=== PATIENT | female | born 1990 ===

== ENCOUNTER 2016-07-12 08:05 | Observation (INO) | payer MEDICAID, OTHER ==
[2016-07-12 08:17] VITALS: RESP 18; TEMP 98.2; O2SAT 100
[2016-07-12 08:26] VITALS: BMI 28.7
[2016-07-12 09:26] LABS: ADD MANUAL DIFF? NO
[2016-07-12 09:31] LABS: BASO # 0.03 K/mm3 (0.0-2.0); BASO % 0.2 % (0.0-3.0); EOS # 0.3 (0.0-0.7); GRAN # 8.48 (1.4-6.5); GRAN % 67.5 % (50.0-68.0); HEMATOCRIT 39.8 % (36.0-48.0); LYMPH % 23.8 % (22.0-35.0); MEAN CELL VOLUME 82.4 fL (80.0-105.0); MEAN CORPUSCULAR HEMOGLOBIN 27.1 pg (25.0-35.0); MEAN CORPUSCULAR HGB CONC 32.9 g/dl (31.0-37.0); MEAN PLATELET VOLUME 9.2 fl (7.0-11.0); MONO # 0.8 (0.1-0.6); MONO % 6.5 % (1.0-6.0); PLATELET COUNT 273 10^3/uL (120.0-450.0); RED CELL DISTRIBUTION WIDTH 15.7 % (11.5-14.5); WHITE BLOOD COUNT 12.6 10^3/ul (4.5-11.0)
[2016-07-12 09:45] LABS: ALB/GLOB RATIO 1.2 (1.1-1.8); ALKALINE PHOSPHATASE 95 U/L (38-133); ALT/SGPT 29 U/L (7-56); AST/SGOT 19 U/L (15-39); BILIRUBIN,TOTAL 0.5 mg/dL (0.2-1.3); BLOOD UREA NITROGEN 8 mg/dL (7-21); CALCIUM 8.9 mg/dL (8.4-10.5); CARBON DIOXIDE 24 mmol/L (21-33); CHLORIDE 107 mmol/L (98-107); GFR AFRICAN-AMERICAN > 60; GLUCOSE,RANDOM 81 mg/dL (70-110); MAGNESIUM 1.9 mg/dL (1.7-2.2); SODIUM 138 mmol/L (132-148); TOTAL PROTEIN 6.6 g/dL (5.8-8.3)
--- NOTE | 2016-07-12 09:50 | ED PDOC ---
Arrival/HPI - General Chief Complaint: Chest Pain Time Seen by Provider: 07/12/16 08:46 Historian: Patient - History of Present Illness Narrative History of Present Illness (Text): 07/12/16 09:45 Priscilla Ross is a 25 year old female, with a history of a-fib and asthma, presents to the emergency department complaining of intermittent chest pain since 7:45 a.m. today morning. Describes the quality as a sharp, stabbing pain to the chest which radiates to the left arm. Patient reports that she is also under emotional distress as one of her family member is getting treated in the ICU. Patient had a recent cardiac catherization done which was negative. Denies any fever, chills, headache, dizziness, shortness of breath, nausea, vomiting, diarrhea, urinary symptoms, or any other complaints at this time. Time/Duration: 1-3 hours Symptom Onset: Sudden Symptom Course: Intermittent Severity Level: Mild Activities at Onset: Light Context: Home Past Medical History - Provider Review Nursing Documentation Reviewed: Yes - Infectious Disease Hx of Infectious Diseases: None - Tetanus Immunization Tetanus Immunization: Unknown - Cardiac Hx Cardiac Disorders: Yes Hx Angina: Yes (started 3 weeks ago, went to [facility] ER was not admitted) Other/Comment: cardiac loop insertion - Pulmonary Hx Respiratory Disorders: Yes Hx Asthma: Yes - Neurological Hx Neurological Disorder: Yes Hx Syncope: Yes (notes from prior visit/triage passed out 3 weeks ago due to heart condition) - Gastrointestinal Hx Gastrointestinal Disorders: Yes Hx Gastritis: Yes - Psychiatric Hx Psychophysiologic Disorder: Yes Hx Anxiety: Yes Hx Bipolar Disorder: Yes Hx Substance Use: No - Surgical History Hx Cardiac Catheterization: Yes (08/26/13) Hx Section: Yes (2008, 2010) Hx Dilation and Curettage: Yes (2007, 2012) Hx Tubal Ligation: Yes Other/Comment: etopic pregancy 2009 - Anesthesia Hx Anesthesia: Yes Hx Anesthesia Reactions: No Hx Malignant Hyperthermia: No - Suicidal Assessment Feels Threatened In Home Enviroment: No Family/Social History - Physician Review Nursing Documentation Reviewed: Yes Family/Social History: No Known Family HX Smoking Status: Light Smoker < 10 Cigarettes Daily Hx Alcohol Use: No Hx Substance Use: No Hx Substance Use Treatment: No Allergies/Home Meds Allergies/Adverse Reactions: Allergies aspirin Allergy (Verified 07/12/16 09:40) ANAPHYLAXIS banana Allergy (Verified 10/10/15 15:02) ANAPHYLAXIS latex Allergy (Verified 10/10/15 15:02) ANAPHYLAXIS Home Medications: Home Meds Medication Instructions Recorded Confirmed Albuterol HFA [Ventolin HFA 90 2 puff IH [id number] PRN 07/12/16 07/12/16 mcg/actuation (8 g)] Review of Systems - Physician Review All systems were reviewed & negative as marked: Yes - Review of Systems Constitutional: Normal. absent: Fatigue, Fevers Respiratory: Normal. absent: SOB, Cough Cardiovascular: Chest Pain (radiating down left arm ) Gastrointestinal: Normal. absent: Abdominal Pain, Diarrhea, Nausea, Vomiting Musculoskeletal: Other (left hand ) Neurological: Normal. absent: Headache, Dizziness Psychiatric: Normal Physical Exam Vital Signs Reviewed: Yes Vital Signs Temp Pulse Resp BP Pulse Ox 07/12/16 12:08 69 18 98/66 L 100 07/12/16 11:00 125/62 07/12/16 09:26 79 18 101/61 100 07/12/16 08:16 98.2 F 71 18 94/62 L 100 Temperature: Afebrile Blood Pressure: Normal Pulse: Regular Respiratory Rate: Normal Appearance: Positive for: Well-Appearing, Non-Toxic, Comfortable Pain Distress: None Mental Status: Positive for: Alert and Oriented X 3 - Systems Exam Head: Present: Atraumatic, Normocephalic Pupils: Present: PERRL Conjunctiva: Present: Normal Respiratory/Chest: Present: Clear to Auscultation, Good Air Exchange, Tender to Palpation (to mid and left chest wall). No: Respiratory Distress, Accessory Muscle Use Cardiovascular: Present: Regular Rate and Rhythm, Normal S1, S2. No: Murmurs Upper Extremity: Present: Normal Inspection. No: Cyanosis, Edema Lower Extremity: Present: Normal Inspection. No: Edema Neurological: Present: GCS=15, CN II-XII Intact, Speech Normal, Motor Func Grossly Intact, Normal Sensory Function Skin: Present: Warm, Dry, Normal Color. No: Rashes Psychiatric: Present: Alert, Oriented x 3, Normal Insight, Normal Concentration Medical Decision Making ED Course and Treatment: 07/12/16 09:51 Impression: A 25 year old female who presents to the emergency department complaining of intermittent sharp chest pain since 7:45 today. Differential Diagnosis include but are not limited to: chest pain: secondary to emotional stress vs. musculoskeletal. Less likely cardiac Plan: -- EKG -- Labs, cardiac enzymes -- Chest X-ray -- Reassess and disposition Progress Notes: 07/12/16 09:53 EKG interpreted by me: Sinus arrhythmia @ [address] elevation. 07/12/16 11:[address] patient on EDObs for chest pain. - Lab Interpretations Lab Results: 07/12/16 09:00 07/12/16 09:00 Lab Results 07/12/16 09:00: WBC 12.6 H, RBC 4.83, Hgb 13.1, Hct 39.8, MCV 82.4, MCH 27.1, MCHC 32.9, RDW 15.7 H, Plt Count 273, MPV 9.2, Gran % 67.5, Lymph % (Auto) 23.8 , Gooding % (Auto) 6.5 H, Eos % (Auto) 2.0, Baso % (Auto) 0.2, Gran # 8.48 H, Lymph # 3.0, Gooding # 0.8 H, Eos # 0.3, Baso # 0.03, Sodium 138, Potassium 4.0, Chloride 107, Carbon Dioxide 24, Anion Gap 11, BUN 8, Creatinine 0.7, Est GFR ( Amer) > 60, Est GFR (Non-Af Amer) > 60, Random Glucose 81, Calcium 8.9, Magnesium 1.9, Total Bilirubin 0.5, AST 19, ALT 29, Alkaline Phosphatase 95, Lactate Dehydrogenase 395, Total Creatine Kinase 102, Troponin I < 0.01, Total Protein 6.6, Albumin 3.6, Globulin 3.1, Albumin/Globulin Ratio 1.2 - RAD Interpretation Radiology Orders: 07/12/16 09:15 CHEST PORTABLE [RAD] Stat - Medication Orders Current Medication Orders: Discontinued Medications Aspirin (Aspirin) 325 mg PO STAT STA Stop: 07/12/16 09:15 Last Admin: 07/12/16 09:40 Dose: Ondansetron HCl (Zofran Inj) 4 mg IVP STAT STA Stop: 07/12/16 13:40 Last Admin: 07/12/16 13:49 Dose: 4 MG IVP Administration Document 07/12/16 13:49 SE (Rec: 07/12/16 13:49 SE [id number]) Charges for Administration # of IVP Administrations 1 Oxycodone/Acetaminophen (Percocet 5/325 Mg Tab) 1 tab PO STAT STA Stop: 07/12/16 11:57 Last Admin: 07/12/16 12:05 Dose: 1 TAB ED OBSERVATION Date of observation admission: 07/12/16 Time of observation admission: 11:52 - Observation admission statement Patient is being placed in observation because:: Chest pain - Progress Note Progress Note: 07/12/16 11:56 - Aspirin was cancelled secondary to an allergy. RAFFI montgomery. Pateint was treated with Percocet. Soon after she was nauseaous so Zofran was ordered. 07/12/16 14:45 - Patient no longer has symptoms. 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 She will make sure to do that this week. She will also f/u with her PMD. - Scribe Statement The provider has reviewed the documentation as recorded by the Luna Pedraza Provider Attestation: All medical record entries made by the Luna were at my direction and personally dictated by me. I have reviewed the chart and agree that the record accurately reflects my personal performance of the history, physical exam, medical decision making, and the department course for this patient. I have also personally directed, reviewed, and agree with the discharge instructions and disposition. Disposition/Present on Arrival - Present on Arrival Any Indicators Present on Arrival: No History of DVT/PE: No History of Uncontrolled Diabetes: No Urinary Catheter: No History of Decub. Ulcer: No History Surgical Site Infection Following: None - Disposition Have Diagnosis and Disposition been Completed?: Yes Diagnosis: Chest pain Disposition: HOME/ ROUTINE Disposition Time: 15:00 Patient Plan: Discharge Condition: IMPROVED
[2016-07-12 09:54] LABS: TROPONIN I < 0.01 ng/mL
[2016-07-12] MEDS ORDERED: Oxycodone/Acetaminophen 5/325 mg Tab PO STA (11:56)
[2016-07-12 12:08] VITALS: BP 98/66; PULSE 69
--- NOTE | 2016-07-12 12:18 | RAD ---
HISTORY: chest pain COMPARISON: 10/10/2015 FINDINGS: LUNGS: No active pulmonary disease. PLEURA: No significant pleural effusion identified, no pneumothorax apparent. CARDIOVASCULAR: Normal. OSSEOUS STRUCTURES: No significant abnormalities. VISUALIZED UPPER ABDOMEN: Normal. OTHER FINDINGS: None. IMPRESSION: No active disease.
--- NOTE | 2016-07-12 16:46 | CARD ---
APPROVED REPORT EKG Measurement Heart [id number] MD [id number] <Conclusion> Sinus rhythm with marked sinus arrhythmia Otherwise normal ECG
== END 2016-07-12 14:56 | disposition home or self-care (01) ==
LOC: ED 08:05 → EROBSV 09:15
PROVIDERS: ADMIT Emergency Medicine; ATTEND Emergency Medicine
DX: R07.9 Chest pain, unspecified (principal); I48.91 Unspecified atrial fibrillation
CPT/HCPCS: 71010; 80053; 82550; 83615; 83735; 84484; 85025; 93005; 96374; 99284; G0378; J2405

== ENCOUNTER 2016-08-16 21:49 | Emergency (ER) | payer MEDICAID ==
[2016-08-16 22:04] VITALS: BMI 29.4
[2016-08-16 22:11] VITALS: TEMP 99.9
[2016-08-16] MEDS ORDERED: Sodium Chloride 0.9% 1,000 ML IV STA (22:15)
--- NOTE | 2016-08-16 22:18 | ED PDOC ---
Arrival/HPI - General Chief Complaint: Flu-like Symptoms Time Seen by Provider: 08/16/16 22:15 Historian: Patient - History of Present Illness Narrative History of Present Illness (Text): 08/16/16 22:17 This 25 yo female presents to this ED c/ sore throat, fever, myalgias, cough x 3 days. Patient noted urinary frequency, but not dysuria, urgency, hematuria, or vaginal discharge. She also denies sob, cp, rash, sick contact, or recent travel. PERC negative for PE Time/Duration: Other (3 days) Context: Home Past Medical History - Provider Review Nursing Documentation Reviewed: Yes - Infectious Disease Hx of Infectious Diseases: None - Tetanus Immunization Tetanus Immunization: Unknown - Cardiac Hx Cardiac Disorders: Yes Hx Angina: Yes (started 3 weeks ago, went to [facility] ER was not admitted) Other/Comment: cardiac loop insertion - Pulmonary Hx Respiratory Disorders: Yes Hx Asthma: Yes - Neurological Hx Neurological Disorder: Yes Hx Syncope: Yes (notes from prior visit/triage passed out 3 weeks ago due to heart condition) - Gastrointestinal Hx Gastrointestinal Disorders: Yes Hx Gastritis: Yes - Psychiatric Hx Psychophysiologic Disorder: Yes Hx Anxiety: Yes Hx Bipolar Disorder: Yes Hx Substance Use: No - Surgical History Hx Cardiac Catheterization: Yes (08/26/13) Hx Section: Yes (2008, 2010) Hx Dilation and Curettage: Yes (2007, 2012) Hx Tubal Ligation: Yes Other/Comment: etopic pregancy 2009 - Anesthesia Hx Anesthesia: Yes Hx Anesthesia Reactions: No Hx Malignant Hyperthermia: No - Suicidal Assessment Feels Threatened In Home Enviroment: No Family/Social History - Physician Review Nursing Documentation Reviewed: Yes Family/Social History: No Known Family HX Smoking Status: Heavy Smoker > 10 Cigarettes Daily Hx Alcohol Use: No Hx Substance Use: No Hx Substance Use Treatment: No Allergies/Home Meds Allergies/Adverse Reactions: Allergies aspirin Allergy (Verified 07/12/16 09:40) ANAPHYLAXIS banana Allergy (Verified 10/10/15 15:02) ANAPHYLAXIS latex Allergy (Verified 10/10/15 15:02) ANAPHYLAXIS Home Medications: Home Meds Medication Instructions Recorded Confirmed Albuterol HFA [Ventolin HFA 90 2 puff IH [id number] PRN 07/12/16 08/16/16 mcg/actuation (8 g)] Review of Systems - Review of Systems Constitutional: Fevers. absent: Fatigue, Weight Change, Night Sweats Eyes: Normal ENT: Sore Throat, Rhinorrhea Respiratory: Normal. absent: SOB, Cough, Sputum, Wheezing Cardiovascular: Normal. absent: Chest Pain, Palpitations Gastrointestinal: Normal. absent: Abdominal Pain, Nausea, Vomiting Genitourinary Female: Frequency. absent: Dysuria, Hematuria, Urine Output Changes, Vaginal Bleeding, Vaginal Discharge Musculoskeletal: Myalgias. absent: Arthralgias, Back Pain, Neck Pain Skin: Normal. absent: Rash Neurological: Normal. absent: Headache, Dizziness, Focal Weakness, Gait Changes , Speech Changes, Facial Droop Endocrine: Normal Hemo/Lymphatic: Normal Psychiatric: Normal Physical Exam Vital Signs Temp Pulse Resp BP Pulse Ox 08/17/16 00:24 74 17 116/62 97 08/16/16 22:04 99.9 F H 60 18 106/62 98 Temperature: Febrile Blood Pressure: Normal Pulse: Regular Respiratory Rate: Normal Appearance: Positive for: Well-Appearing, Non-Toxic, Comfortable Pain Distress: None Mental Status: Positive for: Alert and Oriented X 3 - Systems Exam Head: Present: Atraumatic, Normocephalic Pupils: Present: PERRL Extroacular Muscles: Present: EOMI Conjunctiva: Present: Normal Mouth: Present: Moist Mucous Membranes Pharnyx: Present: ERYTHEMA, EXUDATE. No: TONSILS ENLARGED, Peritonsilar Swelling, Uvular Deviation Neck: Present: Normal Range of Motion Respiratory/Chest: Present: Clear to Auscultation, Good Air Exchange. No: Respiratory Distress, Accessory Muscle Use, Wheezes, Rales, Retracting, Rhonchi Cardiovascular: Present: Regular Rate and Rhythm, Normal S1, S2. No: Murmurs Abdomen: Present: Normal Bowel Sounds. No: Tenderness, Distention, Peritoneal Signs, Rebound, Guarding Back: Present: Normal Inspection. No: CVA Tenderness Upper Extremity: Present: Normal Inspection, Normal ROM, Neurovascularly Intact , Capillary Refill < 2s. No: Cyanosis, Edema Lower Extremity: Present: Normal Inspection, NORMAL PULSES, Normal ROM. No: Edema, CALF TENDERNESS Neurological: Present: GCS=15, CN II-XII Intact, Speech Normal, Motor Func Grossly Intact, Normal Sensory Function Skin: Present: Warm, Dry, Normal Color. No: Rashes Psychiatric: Present: Alert, Oriented x 3, Normal Insight, Normal Concentration Medical Decision Making ED Course and Treatment: 08/16/16 23:54 Re-evaluation. Patient feels better. Discussed results and plan with patient who expresses understanding. All questions answered and there is agreement with the plan to discharge home with instructions. Patient stable for discharge. Return if symptoms persist or worsen. I reviewed [place] [facility] [employer] which did not demonstrate previous opiods use. Patient requested Phenergan with Codeine for cough. She is aware of risk of addiction, drowsiness, or allergies when using this medication. She was recommended not to drive or operate machinery when using the cough medication. Re-evaluation Time: 23:54 Reassessment Condition: Re-examined, Improved - Lab Interpretations Microbiology Results: Microbiology Results 08/16/16 22:17 Throat Group A Strep Throat Culture - Final NO BETA STREP GROUP A ISOLATED. Lab Results: Lab Results 08/16/16 22:17: Influenza Typ A,B (EIA) Negative for flu a/b, Grp A Beta Strep Ag Negative - Medication Orders Current Medication Orders: Discontinued Medications Acetaminophen (Tylenol 325mg Tab) 975 mg PO STAT STA Stop: 08/16/16 22:17 Last Admin: 08/16/16 22:43 Dose: 975 mg Amoxicillin (Amoxil 500 Mg Cap) 500 mg PO STAT STA PRN Reason: Protocol Stop: 08/16/16 23:54 Last Admin: 08/17/16 00:06 Dose: 500 mg Sodium Chloride (Sodium Chloride 0.9%) 1,000 mls @ 999 mls/hr IV .Q1H1M STA Stop: 08/16/16 23:15 Last Admin: 08/16/16 22:44 Dose: 999 mls/hr Disposition/Present on Arrival - Present on Arrival Any Indicators Present on Arrival: No History of DVT/PE: No History of Uncontrolled Diabetes: No Urinary Catheter: No History of Decub. Ulcer: No History Surgical Site Infection Following: None - Disposition Have Diagnosis and Disposition been Completed?: Yes Diagnosis: Pharyngitis Disposition: HOME/ ROUTINE Disposition Time: 23:54 Patient Plan: Discharge Condition: GOOD Discharge Instructions (ExitCare): Pharyngitis (ED) Additional Instructions: Call private doctor for follow up visit in 1-2 days. Take medication as instructed. Return to emergency if symptoms worsen. Change toothbrush in 4-5 days Prescriptions: Acetaminophen [Tylenol 325mg tab] 650 mg PO Q4H PRN #30 tab PRN Reason: Fever >100.4 F Amoxicillin [Amoxil 500 mg Cap] 500 mg PO TID #30 cap Promethazine/Codeine [Codeine/Promethazine 10 MG/5 Ml-6.25 MG/5 Ml] 5 ml PO Q4H PRN #60 ml PRN Reason: Cough Referrals: [facility], [Non-Staff] - Follow up with primary [facility] [Outside] - Follow up with primary [facility] [Outside] - Follow up with primary Forms: WORK NOTE
[2016-08-17 00:40] VITALS: BP 116/62; PULSE 74; RESP 17; O2SAT 97
== END 2016-08-17 00:40 | disposition home or self-care (01) ==
LOC: ED 21:49
DX: J02.9 Acute pharyngitis, unspecified (principal); F17.220 Nicotine dependence, chewing tobacco, uncomplicated
CPT/HCPCS: 87070; 87430; 87804; 96360; 99284; J7040

== ENCOUNTER 2016-12-10 13:46 | Emergency (ER) | payer MEDICAID ==
[2016-12-10 14:09] VITALS: BMI 26.5
[2016-12-10] MEDS ORDERED: Sodium Chloride 0.9% 1,000 ML IV STA (14:27)
[2016-12-10 14:39] LABS: URINE BILIRUBIN NEGATIVE (NEGATIVE); URINE BLOOD TRACE-INTACT (NEGATIVE); URINE GLUCOSE (UA) NEGATIVE (NEGATIVE); URINE KETONE NEGATIVE (NEGATIVE); URINE LEUKOCYTE ESTERASE SMALL Leu/uL (NEGATIVE); URINE PROTEIN NEGATIVE mg/dL (<30 mg/dL); URINE UROBILINOGEN 0.2 E.U./dL (<1 E.U./dL)
[2016-12-10 14:40] LABS: URINE APPEARANCE CLEAR (CLEAR); URINE COLOR YELLOW (YELLOW)
[2016-12-10 14:47] LABS: URINE RBC 0 - 2 /hpf (0-2)
[2016-12-10] MEDS ORDERED: Morphine 4 mg/ml ISec IVP STA (15:10)
[2016-12-10 15:13] LABS: ALB/GLOB RATIO 1.3 (1.1-1.8); ALKALINE PHOSPHATASE 101 U/L (38-126); ALT/SGPT 39 U/L (7-56); AST/SGOT 25 U/L (14-36); BILIRUBIN,TOTAL 0.4 mg/dL (0.2-1.3); BLOOD UREA NITROGEN 10 mg/dL (7-21); CALCIUM 9.7 mg/dL (8.4-10.5); CARBON DIOXIDE 29 mmol/L (21-33); CHLORIDE 104 mmol/L (98-107); GFR AFRICAN-AMERICAN > 60; GLUCOSE,RANDOM 75 mg/dL (70-110); LIPASE 52 U/L (23-300); POTASSIUM 4.9 mmol/L (3.6-5.0); SODIUM 143 mmol/L (132-148); TOTAL PROTEIN 7.1 g/dL (5.8-8.3)
[2016-12-10 15:14] LABS: BASO # 0.04 K/mm3 (0.0-2.0); BASO % 0.4 % (0.0-3.0); EOS # 0.2 (0.0-0.7); GRAN # 7.02 (1.4-6.5); GRAN % 63.4 % (50.0-68.0); HEMATOCRIT 41.5 % (36.0-48.0); LYMPH # 3.1 (1.2-3.4); LYMPH % 27.7 % (22.0-35.0); MEAN CELL VOLUME 84.9 fl (80.0-105.0); MEAN CORPUSCULAR HEMOGLOBIN 28.2 pg (25.0-35.0); MEAN CORPUSCULAR HGB CONC 33.3 g/dl (31.0-37.0); MEAN PLATELET VOLUME 9.4 fl (7.0-11.0); MONO # 0.7 (0.1-0.6); MONO % 6.5 % (1.0-6.0); RED CELL DISTRIBUTION WIDTH 15.9 % (11.5-14.5); WHITE BLOOD COUNT 11.1 10^3/ul (4.5-11.0)
[2016-12-10] MEDS ORDERED: Iohexol 350 MG/100 ML VIAL ONE (15:51)
--- NOTE | 2016-12-10 16:06 | US ---
HISTORY: llq pain COMPARISON: Transvaginal pelvic ultrasound performed 07/28/13 TECHNIQUE: Transvaginal pelvic ultrasound FINDINGS: UTERUS: Measures 7.3 x 4.0 x 4.8 cm. ENDOMETRIUM: Measures 7 mm in diameter. CERVIX: Cervix length measures approximately 3.6 cm. Nabothian cyst. RIGHT OVARY: Measures 2.8 x 1.9 x 2.4 cm. Blood flow is demonstrated. 1.4 cm follicle/cyst. LEFT OVARY: Measures 2.8 x 1.9 x 2.4 cm. Blood flow is demonstrated. 1.2 cm follicle/cyst. FREE FLUID: No significant free fluid noted. OTHER FINDINGS: None. IMPRESSION: Bilateral follicles/cysts.
[2016-12-10 16:17] VITALS: RESP 17
--- NOTE | 2016-12-10 16:36 | CT ---
PROCEDURE: CT Abdomen and Pelvis with contrast HISTORY: abd pain COMPARISON: CT abdomen and pelvis with IV contrast performed 07/28/13 TECHNIQUE: Contrast dose: 100 mL Omnipaque 350 Radiation dose: Total exam DLP = 318.05 MGy-cm. This CT exam was performed using one or more of the following dose reduction techniques: Automated exposure control, adjustment of the mA and/or kV according to patient size, and/or use of iterative reconstruction technique. FINDINGS: LOWER THORAX: No visible consolidation, pleural effusion, or pneumothorax. LIVER: Unremarkable. GALLBLADDER AND BILE DUCTS: Unremarkable. PANCREAS: Unremarkable. SPLEEN: Meter probable splenule. Otherwise unremarkable. ADRENALS: Unremarkable. KIDNEYS AND URETERS: The kidneys enhance symmetrically. No hydronephrosis or obstructing calculus identified. VASCULATURE: No aortic aneurysm. BOWEL: Stomach is nondistended. Lack of oral contrast limits evaluation for bowel pathology. Bowel loops appear within normal limits of caliber without evidence of obstruction. APPENDIX: The appendix appears within normal limits of caliber. No secondary signs of acute appendicitis. PERITONEUM: No significant free fluid. No definite free air. LYMPH NODES: No bulky adenopathy. BLADDER: Unremarkable. REPRODUCTIVE: The uterus is present. 9 mm right adnexal low-density lesion possibly ovarian cyst. BONES: No acute osseous abnormality is detected. . OTHER FINDINGS: None. IMPRESSION: No acute pathology identified. Findings as above.
[2016-12-10] MEDS ORDERED: Morphine 2 mg/ml ISec IVP STA (16:42)
[2016-12-10] MEDS ORDERED: cefTRIAXone (Rocephin) 250 mg Inj IM STA (17:17)
--- NOTE | 2016-12-10 17:24 | ED PDOC ---
Arrival/HPI - General Historian: Patient - History of Present Illness Time/Duration: 1 week Symptom Onset: Gradual Symptom Course: Worsening Quality: Aching, Pressure Severity Level: 8 - General Chief Complaint: Abdominal Pain Time Seen by Provider: 12/10/16 14:14 - History of Present Illness Narrative History of Present Illness (Text): 12/10/16 17:21 26-year-old female presents today with a one-week history of left lower quadrant abdominal pain and suprapubic pain that has been worsening. Patient with a history of unprotected sex with 2 partners. Complaining of severe abdominal pain worse with movement. Patient also states that she has been doing heavy lifting and moving. She denies chest pain or shortness of breath. Denies dizziness or weakness. Complaining of occasional urinary frequency. Patient states she did have vaginal discharge last week before her period. Patient denies at present time. Denies fevers or chills. No other complaints ( Azoia,Isa T) Past Medical History - Provider Review Nursing Documentation Reviewed: Yes - Travel History Have you recently traveled outside [place] w/in the past 3 mons?: No - Infectious Disease Hx of Infectious Diseases: None - Tetanus Immunization Tetanus Immunization: Unknown - Cardiac Hx Cardiac Disorders: Yes Hx Angina: Yes Hx Atrial Fibrillation: Yes (h/o ablation) Hx Hypotension: Yes Other/Comment: cardiac loop insertion - Pulmonary Hx Respiratory Disorders: Yes Hx Asthma: Yes - Neurological Hx Neurological Disorder: Yes Hx Syncope: Yes - Gastrointestinal Hx Gastrointestinal Disorders: Yes Hx Gastritis: Yes - Genitourinary/Gynecological Other/Comment: Ovarian Cyst - Psychiatric Hx Psychophysiologic Disorder: Yes Hx Anxiety: Yes Hx Bipolar Disorder: Yes Hx Substance Use: No - Surgical History Hx Cardiac Catheterization: Yes (08/26/13) Hx Section: Yes (2008, 2010) Hx Dilation and Curettage: Yes (2007, 2012) Hx Tubal Ligation: Yes Other/Comment: ectopic pregancy 2009 - Anesthesia Hx Anesthesia: Yes Hx Anesthesia Reactions: No Hx Malignant Hyperthermia: No - Suicidal Assessment Feels Threatened In Home Enviroment: No Family/Social History - Physician Review Nursing Documentation Reviewed: Yes Family/Social History: Unknown Family HX Smoking Status: Light Smoker < 10 Cigarettes Daily Hx Alcohol Use: Yes Frequency of alcohol use: Socially Hx Substance Use: No Hx Substance Use Treatment: No Allergies/Home Meds Allergies/Adverse Reactions: Allergies aspirin Allergy (Verified 07/12/16 09:40) ANAPHYLAXIS banana Allergy (Verified 10/10/15 15:02) ANAPHYLAXIS latex Allergy (Verified 10/10/15 15:02) ANAPHYLAXIS Home Medications: Home Meds Medication Instructions Recorded Confirmed Albuterol HFA [Ventolin HFA 90 2 puff IH [id number] PRN 07/12/16 12/10/16 mcg/actuation (8 g)] Midodrine [Proamatine] 1 tab PO TID 12/10/16 12/10/16 Review of Systems - Review of Systems Constitutional: absent: Fatigue, Fevers Respiratory: absent: SOB, Cough Cardiovascular: absent: Chest Pain, Palpitations Gastrointestinal: Abdominal Pain. absent: Constipation, Diarrhea, Nausea, Vomiting Genitourinary Female: Dysuria, Vaginal Discharge. absent: Frequency, Hematuria , Vaginal Bleeding Musculoskeletal: Back Pain. absent: Arthralgias, Neck Pain Skin: absent: Rash, Pruritis Neurological: absent: Headache, Dizziness Psychiatric: absent: Anxiety, Depression Physical Exam Vital Signs Reviewed: Yes Temperature: Afebrile Blood Pressure: Normal Pulse: Regular Respiratory Rate: Normal Appearance: Positive for: Well-Appearing, Non-Toxic, Comfortable Pain Distress: None Mental Status: Positive for: Alert and Oriented X 3 - Systems Exam Head: Present: Atraumatic Mouth: Present: Moist Mucous Membranes Neck: Present: Normal Range of Motion Respiratory/Chest: Present: Clear to Auscultation, Good Air Exchange. No: Respiratory Distress, Accessory Muscle Use Cardiovascular: Present: Regular Rate and Rhythm, Normal S1, S2. No: Murmurs Abdomen: Present: Tenderness (+ LLQ and suprapubic tenderness), Normal Bowel Sounds. No: Distention, Peritoneal Signs Genitourinary/Pelvic Exam: Present: Normal External Genitalia, Vaginal Discharge , Cervical Motion Tendernes, Other (chaparoned by maurilio MCCLENDON). No: Vaginal Bleeding, Vaginal Lesions, Adenexal Tenderness, Adenexal Mass, Cervical os Closed, Odor Back: Present: Normal Inspection. No: CVA Tenderness, Midline Tenderness, Paraspinal Tenderness Upper Extremity: Present: Normal Inspection Lower Extremity: Present: Normal Inspection Neurological: Present: GCS=15, Speech Normal Skin: Present: Warm, Dry, Normal Color. No: Rashes Psychiatric: Present: Alert, Oriented x 3 Medical Decision Making ED Course and Treatment: 12/10/16 17:25 Patient is nontoxic well appearing with stable vital signs presenting with 1 week history of worsening left lower quadrant abdominal pain CBC WBC 11.1 CMP within normal limits Lipase within normal limits Urinalysis trace leukocytes Ultrasound: FINDINGS: UTERUS: Measures 7.3 x 4.0 x 4.8 cm. ENDOMETRIUM: Measures 7 mm in diameter. CERVIX: Cervix length measures approximately 3.6 cm. Nabothian cyst. RIGHT OVARY: Measures 2.8 x 1.9 x 2.4 cm. Blood flow is demonstrated. 1.4 cm follicle/cyst. LEFT OVARY: Measures 2.8 x 1.9 x 2.4 cm. Blood flow is demonstrated. 1.2 cm follicle/cyst. FREE FLUID: No significant free fluid noted. OTHER FINDINGS: None. IMPRESSION: Bilateral follicles/cysts. CAT scan: FINDINGS: LOWER THORAX: No visible consolidation, pleural effusion, or pneumothorax. LIVER: Unremarkable. GALLBLADDER AND BILE DUCTS: Unremarkable. PANCREAS: Unremarkable. SPLEEN: Meter probable splenule. Otherwise unremarkable. ADRENALS: Unremarkable. KIDNEYS AND URETERS: The kidneys enhance symmetrically. No hydronephrosis or obstructing calculus identified. VASCULATURE: No aortic aneurysm. BOWEL: Stomach is nondistended. Lack of oral contrast limits evaluation for bowel pathology. Bowel loops appear within normal limits of caliber without evidence of obstruction. APPENDIX: The appendix appears within normal limits of caliber. No secondary signs of acute appendicitis. PERITONEUM: No significant free fluid. No definite free air. LYMPH NODES: No bulky adenopathy. BLADDER: Unremarkable. REPRODUCTIVE: The uterus is present. 9 mm right adnexal low-density lesion possibly ovarian cyst. BONES: No acute osseous abnormality is detected. . OTHER FINDINGS: None. IMPRESSION: No acute pathology identified. Findings as above. Patient reassessment: pt feeling better after morphine; GC/chylamdyia cultures pending. will treat patients vaginal discharge with ROcephin and zithromax. pt was advised to f/u with TRANSMISSION SYSTEMS OPERATOR. Discussed all results with patient in depth Patient verbalizes understanding of discharge instructions and need for immediate followup. Impression: Abdominal pain, vaginal discharge. Tylenol every 4 hours as needed for pain Doxycycline 1 tablet twice daily 14 days Follow up with primary care physician within the next 2 days Follow up with the TRANSMISSION SYSTEMS OPERATOR within the next 2 days. Return immediately if symptoms worsen persist or if new symptoms develop: High fevers, increasing pain, vomiting, diarrhea or any other concerning symptoms develop (Isa Layton) I was available for consultation during PA evaluation. The chart was reviewed by me, and I agree with disposition. The documented history was done by the physician membership solicitor. The documented physical exam was done by the physician membership solicitor. The documented procedures were done by the physician membership solicitor. (Franko Sandoval) - Lab Interpretations Lab Results: 12/10/16 14:50 12/10/16 14:50 Lab Results 12/10/16 14:50: WBC 11.1 H, RBC 4.89, Hgb 13.8, Hct 41.5, MCV 84.9, MCH 28.2, MCHC 33.3, RDW 15.9 H, Plt Count 312, MPV 9.4, Gran % 63.4, Lymph % (Auto) 27.7 , [place] % (Auto) 6.5 H, Eos % (Auto) 2.0, Baso % (Auto) 0.4, Gran # 7.02 H, Lymph # 3.1, [place] # 0.7 H, Eos # 0.2, Baso # 0.04 12/10/16 14:50: Sodium 143, Potassium 4.9, Chloride 104, Carbon Dioxide 29, Anion Gap 15, BUN 10, Creatinine 0.7, Est GFR ( Amer) > 60, Est GFR (Non- Af Amer) > 60, Random Glucose 75, Calcium 9.7, Total Bilirubin 0.4, AST 25, ALT 39, Alkaline Phosphatase 101, Total Protein 7.1, Albumin 4.1, Globulin 3.1, Albumin/Globulin Ratio 1.3, Lipase 52 12/10/16 14:35: Urine Color Yellow, Urine Appearance Clear, Urine pH 7.0, Ur Specific Wells 1.010, Urine Protein Negative, Urine Glucose (UA) Negative, Urine Ketones Negative, Urine Blood Trace-intact H, Urine Nitrate Negative, Urine Bilirubin Negative, Urine Urobilinogen 0.2, Ur Leukocyte Esterase Small H , Urine RBC 0 - 2, Urine WBC 2 - 5, Ur Epithelial Cells 3 - 4, Urine HCG, Qual Negative - RAD Interpretation Radiology Orders: 12/10/16 15:02 ABD & PELVIS IV CONTRAST ONLY [CT] Stat TRANSVAGINAL [US] Stat - Medication Orders Current Medication Orders: Discontinued Medications Acetaminophen (Tylenol 325mg Tab) 650 mg PO STAT STA Stop: 12/10/16 15:24 Last Admin: 12/10/16 16:14 Dose: Not Given Non-Admin Reason: Patient Refused Azithromycin (Zithromax) 1,000 mg PO STAT STA PRN Reason: Protocol Stop: 12/10/16 17:18 Last Admin: 12/10/16 17:43 Dose: 1,000 mg Ceftriaxone Sodium (Rocephin) 250 mg IM STAT STA PRN Reason: Protocol Stop: 12/10/16 17:18 Last Admin: 12/10/16 17:43 Dose: 250 mg Sodium Chloride (Sodium Chloride 0.9%) 1,000 mls @ 999 mls/hr IV .Q1H1M STA Stop: 12/10/16 15:27 Last Admin: 12/10/16 14:58 Dose: 999 mls/hr Iohexol (Omnipaque 350 100 Ml) Confirm Administered Dose 350 mg .ROUTE .STK-MED ONE Stop: 12/10/16 15:52 Morphine Sulfate (Morphine) 2 mg IVP STAT STA Stop: 12/10/16 16:43 Last Admin: 12/10/16 16:54 Dose: 2 mg Disposition/Present on Arrival - Present on Arrival Any Indicators Present on Arrival: No History of DVT/PE: No History of Uncontrolled Diabetes: No Urinary Catheter: No History of Decub. Ulcer: No History Surgical Site Infection Following: None - Disposition Have Diagnosis and Disposition been Completed?: Yes Disposition Time: 17:38 Patient Plan: Discharge - Disposition Diagnosis: Abdominal pain, Vaginal discharge Disposition: HOME/ ROUTINE Condition: GOOD Discharge Instructions (ExitCare): Pelvic Inflammatory Disease (ED), Acute Abdominal Pain (ED) Additional Instructions: Tylenol every 4 hours as needed for pain Doxycycline 1 tablet twice daily 14 days Follow up with primary care physician within the next 2 days Follow up with the TRANSMISSION SYSTEMS OPERATOR within the next 2 days. Return immediately if symptoms worsen persist or if new symptoms develop: High fevers, increasing pain, vomiting, diarrhea or any other concerning symptoms develop Prescriptions: Doxycycline Hyclate 100 mg PO BID #28 capsule Referrals: Katheryn Bajwa MD [Staff Provider] - Follow up with primary [facility] [Outside] - [facility] with [facility] [Outside] - Follow up with primary Yumiko Corona MD [Staff Provider] - Follow up with primary Forms: [employer] (Telugu), WORK NOTE
[2016-12-10 18:04] VITALS: BP 98/76; PULSE 73; TEMP 98.2; O2SAT 95
== END 2016-12-10 18:03 | disposition home or self-care (01) ==
LOC: ED 13:46
DX: N89.8 Other specified noninflammatory disorders of vagina (principal); R10.32 Left lower quadrant pain
CPT/HCPCS: 74177; 76830; 80053; 81001; 83690; 84703; 85025; 87086; 87491; 87591; 96361; 96372; 96374; 99284; J0696; J2270; J7040; Q9967

== ENCOUNTER 2017-01-20 01:43 | Emergency (ER) | payer MEDICAID ==
[2017-01-20 02:05] VITALS: BMI 26.9
[2017-01-20] MEDS ORDERED: Sodium Chloride 0.9% 1,000 ML IV STA (02:12)
[2017-01-20 02:15] VITALS: RESP 16; TEMP 98.4
--- NOTE | 2017-01-20 02:20 | ED PDOC ---
Arrival/HPI - General Chief Complaint: Abdominal Pain Time Seen by Provider: 01/20/17 02:06 Historian: Patient - History of Present Illness Narrative History of Present Illness (Text): 01/20/17 02:16 A 26 year old female, whose past medical history includes asthma, presents to the emergency department complaining of epigastric abdominal pain. Patient reports pain developed about twelve hours ago, after taking 4 tablets of Flagyl medication. Patient describes pain as a burning sensation. Patient was prescribed Flagyl medication ten days ago but notes she took them yesterday. Notes she drank beer two hours ago. Reports nausea and vomiting but denies any vaginal bleeding, discharge or any other complaints at this time. PMD: Dr. Hewitt Symptom Onset: Sudden Symptom Course: Unchanged Activities at Onset: Rest Context: Home Past Medical History - Provider Review Nursing Documentation Reviewed: Yes - Infectious Disease Hx of Infectious Diseases: None - Tetanus Immunization Tetanus Immunization: Unknown - Cardiac Hx Atrial Fibrillation: Yes (ablation) - Pulmonary Hx Respiratory Disorders: Yes Hx Asthma: Yes - Neurological Hx Neurological Disorder: Yes Hx Syncope: Yes - HEENT Hx HEENT Disorder: No - Renal Hx Renal Disorder: No - Endocrine/Metabolic Hx Endocrine Disorders: No - Hematological/Oncological Hx Blood Disorders: No - Integumentary Hx Dermatological Disorder: No - Musculoskeletal/Rheumatological Hx Musculoskeletal Disorders: No - Gastrointestinal Hx Gastrointestinal Disorders: Yes Hx Gastritis: Yes - Genitourinary/Gynecological Hx Genitourinary Disorders: No Other/Comment: Ovarian Cyst - Psychiatric Hx Psychophysiologic Disorder: Yes Hx Anxiety: Yes Hx Bipolar Disorder: Yes Hx Substance Use: No - Surgical History Hx Section: Yes (x3) Hx Tubal Ligation: Yes Other/Comment: etopic pregancy 2010 - Anesthesia Hx Anesthesia: Yes Hx Anesthesia Reactions: No Hx Malignant Hyperthermia: No - Suicidal Assessment Feels Threatened In Home Enviroment: No Family/Social History - Physician Review Nursing Documentation Reviewed: Yes Family/Social History: Other (non contributory) Smoking Status: Light Smoker < 10 Cigarettes Daily Hx Alcohol Use: No Hx Substance Use: No Hx Substance Use Treatment: No Allergies/Home Meds Allergies/Adverse Reactions: Allergies aspirin Allergy (Verified 01/20/17 02:05) ANAPHYLAXIS banana Allergy (Verified 01/20/17 02:05) ANAPHYLAXIS latex Allergy (Verified 01/20/17 02:05) ANAPHYLAXIS Home Medications: Home Meds Medication Instructions Recorded Confirmed Midodrine [Proamatine] 1 tab PO TID 12/10/16 01/20/17 Fludrocortisone [Florinef] 0.1 mg PO DAILY 01/20/17 01/20/17 Lurasidone HCl [Latuda] 20 mg PO DAILY 01/20/17 01/20/17 Sertraline [Zoloft] 12.5 mg PO DAILY 01/20/17 01/20/17 Review of Systems - Physician Review All systems were reviewed & negative as marked: Yes - Review of Systems Gastrointestinal: Abdominal Pain (epigastric), Nausea, Vomiting Genitourinary Female: absent: Vaginal Bleeding, Vaginal Discharge Physical Exam Vital Signs Reviewed: Yes Vital Signs Temp Pulse Resp BP Pulse Ox 01/20/17 02:14 98.4 F 96 H 16 110/63 100 Appearance: Positive for: Well-Appearing, Non-Toxic, Comfortable Pain Distress: None Mental Status: Positive for: Alert and Oriented X 3 - Systems Exam Head: Present: Atraumatic, Normocephalic Pupils: Present: PERRL Extroacular Muscles: Present: EOMI Conjunctiva: Present: Normal Mouth: Present: Moist Mucous Membranes Neck: Present: Normal Range of Motion Respiratory/Chest: Present: Clear to Auscultation, Good Air Exchange. No: Respiratory Distress, Accessory Muscle Use Cardiovascular: Present: Regular Rate and Rhythm, Normal S1, S2. No: Murmurs Abdomen: Present: Tenderness (epigastric), Normal Bowel Sounds. No: Distention , Peritoneal Signs Back: Present: Normal Inspection Upper Extremity: Present: Normal Inspection. No: Cyanosis, Edema Lower Extremity: Present: Normal Inspection. No: Edema Neurological: Present: GCS=15, CN II-XII Intact, Speech Normal Skin: Present: Warm, Dry, Normal Color. No: Rashes Psychiatric: Present: Alert, Oriented x 3, Normal Insight, Normal Concentration Medical Decision Making ED Course and Treatment: 01/20/17 05:02 pt sleeping. upon waking reports pain and nausea improved. I disc results and plan for rx. Follow up and return precautions advised. - Lab Interpretations Lab Results: 01/20/17 02:45 01/20/17 02:45 Lab Results 01/20/17 02:45: Sodium 141, Potassium 4.0, Chloride 107, Carbon Dioxide 23, Anion Gap 15, BUN 9, Creatinine 0.6 L, Est GFR ( Amer) > 60, Est GFR (Non -Af Amer) > 60, Random Glucose 81, Calcium 9.2, Total Bilirubin 0.5, AST 23, ALT 35, Alkaline Phosphatase 86, Total Protein 6.6, Albumin 3.9, Globulin 2.7, Albumin/Globulin Ratio 1.4, Lipase 48 01/20/17 02:45: WBC 12.6 H, RBC 4.60, Hgb 13.0, Hct 38.4, MCV 83.5, MCH 28.3, MCHC 33.9, RDW 14.2, Plt Count 265, MPV 9.2, Gran % 61.6, Lymph % (Auto) 28.1, [place] % (Auto) 8.6 H, Eos % (Auto) 1.5, Baso % (Auto) 0.2, Gran # 7.76 H, Lymph # 3.5 H, [place] # 1.1 H, Eos # 0.2, Baso # 0.02 I have reviewed the lab results: Yes - Medication Orders Current Medication Orders: Discontinued Medications Sodium Chloride (Sodium Chloride 0.9%) 1,000 mls @ 999 mls/hr IV .Q1H1M STA Stop: 01/20/17 03:12 Last Admin: 01/20/17 02:54 Dose: 999 mls/hr eMAR Start Stop Document 01/20/17 02:54 SC (Rec: 01/20/17 02:54 SC [id number]) Intravenous Solution Start Date 01/20/17 Start Time 02:54 End Date 01/20/17 End time 03:55 Total Infusion Time 61 Ondansetron HCl (Zofran Inj) 4 mg IVP ONCE ONE Stop: 01/20/17 02:13 Last Admin: 01/20/17 02:54 Dose: 4 mg IVP Administration Document 01/20/17 02:54 SC (Rec: 01/20/17 02:54 SC [id number]) Charges for Administration # of IVP Administrations 1 - Scribe Statement The provider has reviewed the documentation as recorded by the Galinaibe Jacky Valencia Provider Scribe Attestation: All medical record entries made by the Scribe were at my direction and personally dictated by me. I have reviewed the chart and agree that the record accurately reflects my personal performance of the history, physical exam, medical decision making, and the department course for this patient. I have also personally directed, reviewed, and agree with the discharge instructions and disposition. Disposition/Present on Arrival - Present on Arrival Any Indicators Present on Arrival: No History of DVT/PE: No History of Uncontrolled Diabetes: No Urinary Catheter: No History of Decub. Ulcer: No History Surgical Site Infection Following: None - Disposition Have Diagnosis and Disposition been Completed?: Yes Diagnosis: Medication side effect Disposition: HOME/ ROUTINE Disposition Time: 05:02 Condition: IMPROVED Referrals: Magdalena Hewitt MD [Primary Care Provider] - Follow up with primary Forms: [employer] (Divehi)
[2017-01-20 03:03] LABS: BASO # 0.02 K/mm3 (0.0-2.0); BASO % 0.2 % (0.0-3.0); EOS # 0.2 (0.0-0.7); EOS % 1.5 % (1.5-5.0); GRAN # 7.76 (1.4-6.5); GRAN % 61.6 % (50.0-68.0); HEMATOCRIT 38.4 % (36.0-48.0); LYMPH # 3.5 (1.2-3.4); LYMPH % 28.1 % (22.0-35.0); MEAN CELL VOLUME 83.5 fl (80.0-105.0); MEAN CORPUSCULAR HEMOGLOBIN 28.3 pg (25.0-35.0); MEAN CORPUSCULAR HGB CONC 33.9 g/dl (31.0-37.0); MEAN PLATELET VOLUME 9.2 fl (7.0-11.0); MONO # 1.1 (0.1-0.6); MONO % 8.6 % (1.0-6.0); RED CELL DISTRIBUTION WIDTH 14.2 % (11.5-14.5); WHITE BLOOD COUNT 12.6 10^3/ul (4.5-11.0)
[2017-01-20 03:08] LABS: ALB/GLOB RATIO 1.4 (1.1-1.8); ALKALINE PHOSPHATASE 86 U/L (38-126); ALT/SGPT 35 U/L (7-56); AST/SGOT 23 U/L (14-36); BILIRUBIN,TOTAL 0.5 mg/dL (0.2-1.3); BLOOD UREA NITROGEN 9 mg/dL (7-21); CALCIUM 9.2 mg/dL (8.4-10.5); CARBON DIOXIDE 23 mmol/L (21-33); CHLORIDE 107 mmol/L (98-107); GFR AFRICAN-AMERICAN > 60; GLUCOSE,RANDOM 81 mg/dL (70-110); LIPASE 48 U/L (23-300); SODIUM 141 mmol/L (132-148); TOTAL PROTEIN 6.6 g/dL (5.8-8.3)
[2017-01-20 05:17] VITALS: BP 122/76; PULSE 72; O2SAT 99
== END 2017-01-20 05:17 | disposition home or self-care (01) ==
LOC: ED 01:43
DX: R10.13 Epigastric pain (principal); T37.3X5A Adverse effect of other antiprotozoal drugs, initial encounter; Y92.009 Unspecified place in unspecified non-institutional (private) residence as the place of occurrence of the external cause; F17.210 Nicotine dependence, cigarettes, uncomplicated; Z98.51 Tubal ligation status; I48.91 Unspecified atrial fibrillation
CPT/HCPCS: 80053; 83690; 85025; 96361; 96374; 99283; J2405; J7040

== ENCOUNTER 2017-02-24 22:23 | Emergency (ER) | payer MEDICAID ==
[2017-02-24 22:24] VITALS: BMI 26.9
--- NOTE | 2017-02-24 22:37 | ED PDOC ---
Arrival/HPI - General Time Seen by Provider: 02/24/17 22:28 Historian: Patient - History of Present Illness Narrative History of Present Illness (Text): 02/24/17 22:37 Priscilla Ross is a 26 year old female, whose past medical history includes atrial fibrillation s/p ablation, bipolar disorder, bipolar disorder, anxiety, and depression.,, who presents to the Emergency department for alcohol intoxication tonight. Patient admits to drinking vodka tonight and denies any substance abuse. Patient denies any chest pain, shortness of breath, vomiting, diarrhea, headache, dizziness, suicidal ideation, homicidal ideation, or any other complaints. Time/Duration: Other (tonight) Symptom Onset: Gradual Symptom Course: Unchanged Activities at Onset: Light Past Medical History - Provider Review Nursing Documentation Reviewed: Yes - Infectious Disease Hx of Infectious Diseases: None - Tetanus Immunization Tetanus Immunization: Unknown - Cardiac Hx Atrial Fibrillation: Yes (ablation) - Pulmonary Hx Asthma: Yes - Neurological Hx Neurological Disorder: Yes Hx Syncope: Yes - HEENT Hx HEENT Disorder: No - Renal Hx Renal Disorder: No - Endocrine/Metabolic Hx Endocrine Disorders: No - Hematological/Oncological Hx Blood Disorders: No - Integumentary Hx Dermatological Disorder: No - Musculoskeletal/Rheumatological Hx Musculoskeletal Disorders: No - Gastrointestinal Hx Gastritis: Yes - Genitourinary/Gynecological Hx Genitourinary Disorders: No Other/Comment: Ovarian Cyst - Psychiatric Hx Anxiety: Yes Hx Bipolar Disorder: Yes Hx Substance Use: No - Surgical History Hx Section: Yes (x3) Hx Tubal Ligation: Yes Other/Comment: etopic pregancy 2010 - Anesthesia Hx Anesthesia: Yes Hx Anesthesia Reactions: No Hx Malignant Hyperthermia: No - Suicidal Assessment Feels Threatened In Home Enviroment: No Family/Social History - Physician Review Nursing Documentation Reviewed: Yes Family/Social History: Unknown Family HX Smoking Status: Light Smoker < 10 Cigarettes Daily Hx Alcohol Use: Yes (occasional) Hx Substance Use: No Hx Substance Use Treatment: No Allergies/Home Meds Allergies/Adverse Reactions: Allergies aspirin Allergy (Verified 02/24/17 22:42) ANAPHYLAXIS banana Allergy (Verified 02/24/17 22:42) ANAPHYLAXIS latex Allergy (Verified 02/24/17 22:42) ANAPHYLAXIS surgical tape Allergy (Uncoded 02/24/17 22:42) ANAPHYLAXIS Home Medications: Home Meds Medication Instructions Recorded Confirmed Midodrine [Proamatine] 1 tab PO TID 12/10/16 02/15/17 Fludrocortisone [Florinef] 0.1 mg PO DAILY 01/20/17 02/15/17 Lurasidone HCl [Latuda] 20 mg PO DAILY 01/20/17 02/15/17 Sertraline [Zoloft] 12.5 mg PO DAILY 01/20/17 02/15/17 Review of Systems - Physician Review All systems were reviewed & negative as marked: Yes - Review of Systems Constitutional: Normal. absent: Fevers Eyes: Normal ENT: Normal Respiratory: Normal. absent: SOB, Cough Cardiovascular: Normal. absent: Chest Pain Gastrointestinal: Nausea. absent: Abdominal Pain Musculoskeletal: absent: Back Pain, Neck Pain Skin: Normal. absent: Rash Neurological: Normal. absent: Headache, Dizziness Endocrine: Normal Hemo/Lymphatic: Normal Psychiatric: Normal. absent: Suicidal Ideation Physical Exam Vital Signs Reviewed: Yes Vital Signs Temp Pulse Resp BP Pulse Ox 02/25/17 06:00 98 F 74 18 124/73 97 02/24/17 22:37 97.9 F 88 17 117/78 98 Temperature: Afebrile Blood Pressure: Normal Pulse: Regular Respiratory Rate: Normal Appearance: Positive for: Well-Appearing, Non-Toxic, Comfortable Pain Distress: None Mental Status: Positive for: Alert and Oriented X 3, other (inebriated) - Systems Exam Head: Present: Atraumatic, Normocephalic Pupils: Present: PERRL Extroacular Muscles: Present: EOMI Conjunctiva: Present: Normal Ears: Present: Normal Mouth: Present: Moist Mucous Membranes Neck: Present: Normal Range of Motion Respiratory/Chest: Present: Clear to Auscultation, Good Air Exchange. No: Respiratory Distress, Accessory Muscle Use Cardiovascular: Present: Regular Rate and Rhythm, Normal S1, S2. No: Murmurs Abdomen: Present: Normal Bowel Sounds. No: Tenderness, Distention, Peritoneal Signs Upper Extremity: Present: Normal Inspection. No: Cyanosis, Edema Lower Extremity: Present: Normal Inspection. No: Edema Neurological: Present: GCS=15, CN II-XII Intact Skin: Present: Warm, Dry, Normal Color. No: Rashes Psychiatric: Present: Normal Insight, Normal Concentration, Intoxicated Medical Decision Making ED Course and Treatment: 02/24/17 22:37 Impression: 26 year old female presents to the Emergency department for alcohol intoxication. Differential Diagnosis included but are not limited to: alcohol intoxication Plan: -- Alcohol level -- IV fluids -- Zofran -- Reassess and disposition Prior Visits: Notes and results from previous visits were reviewed. On 02/14/2017, pt was seen in the Emergency department for abdominal pain, nausea, vomiting, fever, and headache. Pt was admitted to the hospital for further evaluation. Progress Notes: 02/25/17 05:59 Pt awake, alert, ambulating with steady gait.Slept in Emergency department overnight. In no acute distress, clinically sober. Pt stable for d/c home. - Lab Interpretations Lab Results: Lab Results 02/25/17 01:04: Alcohol, Quantitative 130 H - Medication Orders Current Medication Orders: Discontinued Medications Sodium Chloride (Sodium Chloride 0.9%) 1,000 mls @ 999 mls/hr IV .Q1H1M STA Stop: 02/25/17 00:45 Last Admin: 02/25/17 00:40 Dose: 999 mls/hr eMAR Start Stop Document 02/25/17 00:40 RE (Rec: 02/25/17 00:41 RE [facility] [id number]) Intravenous Solution Start Date 02/25/17 Start Time 00:41 Ondansetron HCl (Zofran Inj) 4 mg IVP ONCE ONE Stop: 02/24/17 23:46 Last Admin: 02/25/17 00:34 Dose: 4 mg IVP Administration Document 02/25/17 00:34 RE (Rec: 02/25/17 00:34 RE [facility] [id number]) Charges for Administration # of IVP Administrations 1 - Scribe Statement The provider has reviewed the documentation as recorded by the Galinaibe Jyoti Chun Provider Scribe Attestation: All medical record entries made by the Galinaibred were at my direction and personally dictated by me. I have reviewed the chart and agree that the record accurately reflects my personal performance of the history, physical exam, medical decision making, and the department course for this patient. I have also personally directed, reviewed, and agree with the discharge instructions and disposition. Disposition/Present on Arrival - Present on Arrival Any Indicators Present on Arrival: No History of DVT/PE: No History of Uncontrolled Diabetes: No Urinary Catheter: No History Surgical Site Infection Following: None - Disposition Have Diagnosis and Disposition been Completed?: Yes Diagnosis: Alcohol intoxication Disposition: HOME/ ROUTINE Disposition Time: 06:01 Patient Plan: Discharge Condition: STABLE Discharge Instructions (ExitCare): Alcohol Intoxication (ED) Referrals: Alcoholics Anonymous [Outside] - Follow up with primary Forms: [employer] (Spanish)
[2017-02-24] MEDS ORDERED: Sodium Chloride 0.9% 1,000 ML IV STA (23:45)
[2017-02-25 06:39] VITALS: BP 124/73; PULSE 74; RESP 18; TEMP 98; O2SAT 97
== END 2017-02-25 06:05 | disposition home or self-care (01) ==
LOC: ED 22:23
DX: F10.129 Alcohol abuse with intoxication, unspecified (principal); Y90.6 Blood alcohol level of 120-199 mg/100 ml
CPT/HCPCS: 80320; 96374; 99283; J2405; J7040

== ENCOUNTER 2017-03-02 15:54 | Emergency (ER) | payer MEDICAID ==
[2017-03-02 16:31] VITALS: BP 100/67; PULSE 80; RESP 18; TEMP 98.7; O2SAT 99
[2017-03-02 16:32] VITALS: BMI 27.4
== END 2017-03-02 17:35 | disposition left against medical advice (07) ==
LOC: ED 15:54
DX: Z02.89 Encounter for other administrative examinations (principal); R10.9 Unspecified abdominal pain

== ENCOUNTER 2017-08-01 11:34 | Emergency (ER) | payer MEDICAID, OTHER ==
[2017-08-01 11:39] VITALS: BMI 26.9
[2017-08-01] MEDS ORDERED: Sodium Chloride 0.9% 1,000 ML IV STA (12:29)
--- NOTE | 2017-08-01 12:34 | ED PDOC ---
Arrival/HPI - General Chief Complaint: Back Pain Time Seen by Provider: 08/01/17 12:10 Historian: Patient, Family - History of Present Illness Narrative History of Present Illness (Text): you were treated in the ED today for atrial fibrillation with ablation, bipolar , depression, anxiety, having lower back pain since epidural 3 years ago with delivery of your baby, was recently discharged today from [facility] and came to the ED today for persistent pain and having numbness of the both lower extremities but otherwise without any trauma/injury/loss of consciousness/neck pain/nausea/vomiting/headache/dizziness/difficulty breathing/ chest pain/abdomen pain/numbness/tingling/loss of bowel or bladder function/ pain with urination/thoughts to harm self or others or hallucinations. 08/01/17 14:50 Time/Duration: > week (3) Symptom Onset: Gradual Symptom Course: Unchanged, Intermittent Quality: Aching Severity Level: 2 Context: Sitting Past Medical History - Provider Review Nursing Documentation Reviewed: Yes - Travel History Have you recently traveled outside [place] w/in the past 3 mons?: No - Infectious Disease Hx of Infectious Diseases: None - Tetanus Immunization Tetanus Immunization: Unknown - Cardiac Hx Atrial Fibrillation: Yes (ablation) - Pulmonary Hx Asthma: Yes - Neurological Hx Neurological Disorder: Yes Hx Syncope: Yes - HEENT Hx HEENT Disorder: No - Renal Hx Renal Disorder: No - Endocrine/Metabolic Hx Endocrine Disorders: No - Hematological/Oncological Hx Blood Disorders: No - Integumentary Hx Dermatological Disorder: No - Musculoskeletal/Rheumatological Hx Back Pain: Yes Other/Comment: Sciatica - Gastrointestinal Hx Gastritis: Yes - Genitourinary/Gynecological Hx Genitourinary Disorders: No Other/Comment: Ovarian Cyst - Psychiatric Hx Anxiety: Yes Hx Bipolar Disorder: Yes Hx Depression: Yes Hx Post Traumatic Stress Disorder: Yes Hx Substance Use: No Other/Comment: Insomnia - Surgical History Hx Section: Yes (x3) Hx Tubal Ligation: Yes Other/Comment: etopic pregancy 2010 - Anesthesia Hx Anesthesia: Yes Hx Anesthesia Reactions: No Hx Malignant Hyperthermia: No - Suicidal Assessment Feels Threatened In Home Enviroment: No Family/Social History - Physician Review Nursing Documentation Reviewed: Yes Family/Social History: No Known Family HX Smoking Status: Heavy Smoker > 10 Cigarettes Daily Hx Alcohol Use: Yes (occasional) Frequency of alcohol use: Socially Hx Substance Use: No Hx Substance Use Treatment: No Allergies/Home Meds Allergies/Adverse Reactions: Allergies aspirin Allergy (Verified 02/24/17 22:42) ANAPHYLAXIS banana Allergy (Verified 02/24/17 22:42) ANAPHYLAXIS latex Allergy (Verified 02/24/17 22:42) ANAPHYLAXIS surgical tape Allergy (Uncoded 02/24/17 22:42) ANAPHYLAXIS Home Medications: Home Meds Medication Instructions Recorded Confirmed Sertraline [Zoloft] 100 mg PO DAILY 01/20/17 08/01/17 Zolpidem [Ambien] 1 tab PO HS 08/01/17 08/01/17 traMADol [Ultram] 1 tab PO Q6H PRN 08/01/17 08/01/17 Review of Systems - Review of Systems Constitutional: Normal Eyes: Normal ENT: Normal Respiratory: Normal Cardiovascular: Normal Gastrointestinal: Normal Genitourinary Female: Normal Musculoskeletal: Back Pain Skin: Normal Neurological: Normal Endocrine: Normal Hemo/Lymphatic: Normal Psychiatric: Normal Physical Exam Vital Signs Reviewed: Yes Vital Signs Temp Pulse Resp BP Pulse Ox 08/01/17 14:46 82 18 106/57 L 100 08/01/17 11:49 98.0 F 86 17 100/68 99 Temperature: Afebrile Blood Pressure: Hypertensive Pulse: Regular Respiratory Rate: Normal Appearance: Positive for: Well-Appearing, Non-Toxic, Comfortable Pain Distress: None Mental Status: Positive for: Alert and Oriented X 3 - Systems Exam Head: Present: Atraumatic, Normocephalic Pupils: Present: PERRL Extroacular Muscles: Present: EOMI Conjunctiva: Present: Normal Ears: Present: Normal Mouth: Present: Moist Mucous Membranes Pharnyx: Present: Normal Nose (External): Present: Atraumatic Nose (Internal): Present: Normal Inspection Neck: Present: Normal Range of Motion Respiratory/Chest: Present: Clear to Auscultation, Good Air Exchange Cardiovascular: Present: Regular Rate and Rhythm Abdomen: Present: Other (no pulsatile masses). No: Tenderness, Distention, Normal Bowel Sounds, Peritoneal Signs, Rebound, Guarding, McBurney's Point Tender, Rovsing's Sign Present, Hernias, Feeding Tubes, Ostomy Tubes, Mass/ Organomegaly, Scars Back: Present: Other (mild lumbar discomfort but no other spinal tenderness and no redness no paraspinal tenderness) Upper Extremity: Present: Normal Inspection Lower Extremity: Present: Normal Inspection, Other Neurological: Present: GCS=15, CN II-XII Intact, Speech Normal, Motor Func Grossly Intact Skin: Present: Warm, Normal Color Psychiatric: Present: Alert, Oriented x 3, Normal Insight, Normal Concentration Medical Decision Making ED Course and Treatment: you were treated in the ED today for atrial fibrillation with ablation, bipolar , depression, anxiety, having lower back pain since epidural 3 years ago with delivery of your baby, was recently discharged today from [facility] and came to the ED today for persistent pain and having numbness of the both lower extremities but otherwise without any trauma/injury/loss of consciousness/neck pain/nausea/vomiting/headache/dizziness/difficulty breathing/ chest pain/abdomen pain/numbness/tingling/loss of bowel or bladder function/ pain with urination/thoughts to harm self or others or hallucinations. You were otherwise breathing easily, smiling and talking with your , good strength /sensation, clear lungs, no abdomen tenderness, mild lumbar discomfort without redness, no pulsatile masses, both lower legs warm/sensation/pink/good movement/ good pulses, no fever temp 98, stable heart rate 86, stable breathing rate 17, excellent oxygen level 99% room air, elevated blood pressure 100/68 which we recommend repeat in 2-3 days primary care office to determine further treatment , you have blood tests no infection count 9, stable blood level hemoglobin 12/ platelets 269, stable chemistry, urine test no acute sign of infection nitrite/ leukocyte negative, urine test negative, radiology [place] [facility] [place] bulges , intravenous fluids, toradol, observation, done in the ED with improvement, you refused any further radiology imaging and cautioned for complications but you stated you will followup with your planned neurology clinic visit tomorrow, thus had a long conversation with Dr. Bellamy your neurologist who stated you can be discharged home and he will gladly see you as planned tomorrow for further evaluation, counselled to monitor symptoms and thus you wanted to go home with your family. 1. Recommend follow-up primary care 1-2 days to review symptoms, referral to Dr. Simpson neurology in [place], [place] [phone] to have followup and further care. 3. If any worsening pain, fever, chills, nausea, vomiting, difficulty breathing, numbness, loss of limb function, pain with urination or any medical condition then return to the ED. Reassessment Condition: Re-examined, Improved - Lab Interpretations Lab Results: 08/01/17 13:30 08/01/17 13:30 Lab Results 08/01/17 13:33: Beta HCG, Quant < 2.39 08/01/17 13:33: Urine Color Light yellow, Urine Appearance Clear, Urine pH 8.0, Ur Specific [place] 1.010, Urine Protein Negative, Urine Glucose (UA) Negative, Urine Ketones Negative, Urine Blood Negative, Urine Nitrate Negative, Urine Bilirubin Negative, Urine Urobilinogen 0.2, Ur Leukocyte Esterase Negative 08/01/17 13:30: Sodium 142, Potassium 3.8, Chloride 106, Carbon Dioxide 27, Anion Gap 13, BUN 7, Creatinine 0.8, Est GFR ( Amer) > 60, Est GFR (Non- Af Amer) > 60, Random Glucose 73, Calcium 9.1, Total Bilirubin 0.4, AST 21, ALT 26, Alkaline Phosphatase 85, Total Protein 6.5, Albumin 3.8, Globulin 2.7, Albumin/Globulin Ratio 1.4 08/01/17 13:30: PT 12.8 H, INR 1.12 H, APTT 28.5 08/01/17 13:30: WBC 9.6, RBC 4.74, Hgb 12.7, Hct 38.6, MCV 81.4 D, MCH 26.8, MCHC 32.9, RDW 16.5 H, Plt Count 269, MPV 9.3, Gran % 62.1, Lymph % (Auto) 28.5 , Stone % (Auto) 6.7 H, Eos % (Auto) 2.4, Baso % (Auto) 0.3, Gran # 5.94, Lymph # (Auto) 2.7, Stone # (Auto) 0.6, Eos # (Auto) 0.2, Baso # (Auto) 0.03 I have reviewed the lab results: Yes - Medication Orders Current Medication Orders: Discontinued Medications Acetaminophen (Tylenol 325mg Tab) 975 mg PO STAT STA Stop: 08/01/17 14:23 Last Admin: 08/01/17 14:45 Dose: Not Given Non-Admin Reason: Allergy Sodium Chloride (Sodium Chloride 0.9%) 1,000 mls @ 1,000 mls/hr IV .Q1H STA Stop: 08/01/17 13:28 Last Admin: 08/01/17 13:44 Dose: 1,000 mls/hr eMAR Start Stop Document 08/01/17 13:44 [employer] (Rec: 08/01/17 13:44 [facility] [id number]) Intravenous Solution Start Date 08/01/17 Start Time 13:44 End Date 08/01/17 End time 14:44 Total Infusion Time 60 Ketorolac Tromethamine (Toradol) 30 mg IVP STAT STA Stop: 08/01/17 12:32 Last Admin: 08/01/17 13:45 Dose: Not Given Non-Admin Reason: Allergy Disposition/Present on Arrival - Present on Arrival Any Indicators Present on Arrival: No History of DVT/PE: No History of Uncontrolled Diabetes: No Urinary Catheter: No History of Decub. Ulcer: No History Surgical Site Infection Following: None - Disposition Have Diagnosis and Disposition been Completed?: Yes Diagnosis: Lumbar pain Disposition: HOME/ ROUTINE Disposition Time: 15:30 Patient Plan: Discharge Condition: IMPROVED Additional Instructions: you were treated in the ED today for atrial fibrillation with ablation, bipolar , depression, anxiety, having lower back pain since epidural 3 years ago with delivery of your baby, was recently discharged today from [facility] and came to the ED today for persistent pain and having numbness of the both lower extremities but otherwise without any trauma/injury/loss of consciousness/neck pain/nausea/vomiting/headache/dizziness/difficulty breathing/ chest pain/abdomen pain/numbness/tingling/loss of bowel or bladder function/ pain with urination/thoughts to harm self or others or hallucinations. You were otherwise breathing easily, smiling and talking with your , good strength /sensation, clear lungs, no abdomen tenderness, mild lumbar discomfort without redness, no pulsatile masses, both lower legs warm/sensation/pink/good movement/ good pulses, no fever temp 98, stable heart rate 86, stable breathing rate 17, excellent oxygen level 99% room air, elevated blood pressure 100/68 which we recommend repeat in 2-3 days primary care office to determine further treatment , you have blood tests no infection count 9, stable blood level hemoglobin 12/ platelets 269, stable chemistry, urine test no acute sign of infection nitrite/ leukocyte negative, urine test negative, radiology MRI spine done at [facility] with disc bulges , intravenous fluids, toradol, observation, done in the ED with improvement, you refused any further radiology imaging and cautioned for complications but you stated you will followup with your planned neurology clinic visit tomorrow, thus had a long conversation with Dr. Bellamy your neurologist who stated you can be discharged home and he will gladly see you as planned tomorrow for further evaluation, counselled to monitor symptoms and thus you wanted to go home with your family. 1. Recommend follow-up primary care 1-2 days to review symptoms, referral to Dr. Simpson neurology in [place], [place] [phone] to have followup and further care. 2. recommend flexeril as directed for pain and don't work/drive/drink alcohol when using. 3. If any worsening pain, fever, chills, nausea, vomiting, difficulty breathing, numbness , loss of limb function, pain with urination or any medical condition then return to the ED. Prescriptions: Cyclobenzaprine [Cyclobenzaprine HCl] 10 mg PO Q8 PRN 4 Days #12 tab PRN Reason: breakthrough pain Forms: [facility] ([place]orean)
[2017-08-01 13:49] LABS: BASO # 0.03 K/mm3 (0.0-2.0); BASO % 0.3 % (0.0-3.0); EOS # 0.2 (0.0-0.7); EOS % 2.4 % (1.5-5.0); GRAN # 5.94 (1.4-6.5); GRAN % 62.1 % (50.0-68.0); HEMOGLOBIN 12.7 g/dL (12.0-16.0); LYMPH # 2.7 (1.2-3.4); LYMPH % 28.5 % (22.0-35.0); MEAN CELL VOLUME 81.4 fl (80.0-105.0); MEAN CORPUSCULAR HEMOGLOBIN 26.8 pg (25.0-35.0); MEAN CORPUSCULAR HGB CONC 32.9 g/dl (31.0-37.0); MEAN PLATELET VOLUME 9.3 fl (7.0-11.0); MONO # 0.6 (0.1-0.6); MONO % 6.7 % (1.0-6.0); RBC 4.74 10^6/uL (3.5-6.1); RED CELL DISTRIBUTION WIDTH 16.5 % (11.5-14.5); WHITE BLOOD COUNT 9.6 10^3/ul (4.5-11.0)
[2017-08-01 14:00] LABS: ALB/GLOB RATIO 1.4 (1.1-1.8); ALBUMIN 3.8 g/dL (3.0-4.8); ALT/SGPT 26 U/L (7-56); AST/SGOT 21 U/L (14-36); BLOOD UREA NITROGEN 7 mg/dL (7-21); CALCIUM 9.1 mg/dL (8.4-10.5); GFR AFRICAN-AMERICAN > 60; GFR NON-AFRICAN AMERICAN > 60
[2017-08-01 14:03] LABS: INR 1.12 (0.93-1.08); PARTIAL THROMBOPLASTIN TIME 28.5 Seconds (25.1-36.5); PROTHROMBIN TIME 12.8 SECONDS (9.4-12.5)
[2017-08-01 14:54] VITALS: RESP 18
[2017-08-01 14:56] LABS: URINE BILIRUBIN NEGATIVE (NEGATIVE); URINE BLOOD NEGATIVE (NEGATIVE); URINE GLUCOSE (UA) NEGATIVE (NEGATIVE); URINE LEUKOCYTE ESTERASE NEGATIVE Leu/uL (NEGATIVE); URINE PROTEIN NEGATIVE mg/dL (<30 mg/dL); URINE UROBILINOGEN 0.2 E.U./dL (<1 E.U./dL)
[2017-08-01 14:59] LABS: URINE APPEARANCE CLEAR (CLEAR); URINE COLOR LIGHT YELLOW (YELLOW)
[2017-08-01 17:00] VITALS: BP 99/68; PULSE 78; TEMP 98; O2SAT 98
== END 2017-08-01 15:45 | disposition home or self-care (01) ==
LOC: ED 11:34
DX: M54.5 Low back pain (principal); I48.91 Unspecified atrial fibrillation
CPT/HCPCS: 80053; 81003; 84702; 85025; 85610; 85730; 87086; 96360; 99284; J7040

== ENCOUNTER 2017-08-13 21:25 | Emergency (ER) | payer OTHER ==
[2017-08-13 21:25] VITALS: BMI 26.9
--- NOTE | 2017-08-13 22:03 | ED PDOC ---
Arrival/HPI - General Time Seen by Provider: 08/13/17 21:27 Historian: Patient - History of Present Illness Narrative History of Present Illness (Text): 08/13/17 22:00 Patient is a 26 year old female whose past medical history includes depression, PTSD, bipolar disorder, afib, ablation therapy for afib, and hypertension, who presents to the Emergency department complaining of depression and suicidal ideation. Patient reports that she has been feeling depressed for the past few days and yesterday had thoughts of driving her car off the road. Patient called her therapist today who advised her to present to the Emergency department. Patient takes Zoloft for her depression and denies any recent EtOH or substance abuse. Time/Duration: 24 hours (Yesterday suidical ideation), < week (Depression for past few days) Past Medical History - Provider Review Nursing Documentation Reviewed: Yes - Infectious Disease Hx of Infectious Diseases: None - Tetanus Immunization Tetanus Immunization: Unknown - Cardiac Hx Atrial Fibrillation: Yes (ablation) Other/Comment: Cardiac stent. Afib - Pulmonary Hx Asthma: Yes - Neurological Hx Neurological Disorder: Yes Hx Syncope: Yes - HEENT Hx HEENT Disorder: No - Renal Hx Renal Disorder: No - Endocrine/Metabolic Hx Endocrine Disorders: No - Hematological/Oncological Hx Blood Disorders: No - Integumentary Hx Dermatological Disorder: No - Musculoskeletal/Rheumatological Hx Back Pain: Yes Other/Comment: Sciatica - Gastrointestinal Hx Gastritis: Yes - Genitourinary/Gynecological Hx Genitourinary Disorders: No Other/Comment: Ovarian Cyst - Psychiatric Hx Anxiety: Yes Hx Bipolar Disorder: Yes Hx Depression: Yes Hx Post Traumatic Stress Disorder: Yes Hx Substance Use: No Other/Comment: Insomnia. PTSD. OCD - Surgical History Hx Section: Yes (x3) Hx Tubal Ligation: Yes Other/Comment: etopic pregancy 2009 - Anesthesia Hx Anesthesia: Yes Hx Anesthesia Reactions: No Hx Malignant Hyperthermia: No - Suicidal Assessment Feels Threatened In Home Enviroment: No Family/Social History - Physician Review Nursing Documentation Reviewed: Yes Family/Social History: No Known Family HX Smoking Status: Heavy Smoker > 10 Cigarettes Daily Hx Alcohol Use: Yes (occasional) Hx Substance Use: No Hx Substance Use Treatment: No Allergies/Home Meds Allergies/Adverse Reactions: Allergies aspirin Allergy (Verified 08/13/17 22:00) ANAPHYLAXIS banana Allergy (Verified 08/13/17 22:00) ANAPHYLAXIS latex Allergy (Verified 08/13/17 22:00) ANAPHYLAXIS surgical tape Allergy (Uncoded 02/24/17 22:42) ANAPHYLAXIS Home Medications: Home Meds Medication Instructions Recorded Confirmed Sertraline [Zoloft] 100 mg PO DAILY 01/20/17 08/13/17 Zolpidem [Ambien] 1 tab PO HS 08/01/17 08/13/17 Review of Systems - Physician Review All systems were reviewed & negative as marked: Yes - Review of Systems Psychiatric: Depression, Suicidal Ideation Physical Exam Vital Signs Temp Pulse Resp BP Pulse Ox 08/14/17 02:48 98.1 F 89 16 105/62 100 08/14/17 01:14 83 17 101/63 100 08/13/17 21:53 98.5 F 90 18 92/57 L 97 Temperature: Afebrile Blood Pressure: Normal Pulse: Regular Respiratory Rate: Normal Mental Status: Positive for: Alert and Oriented X 3 - Systems Exam Head: Present: Atraumatic, Normocephalic Pupils: Present: PERRL Extroacular Muscles: Present: EOMI Conjunctiva: Present: Normal Mouth: Present: Moist Mucous Membranes Neck: Present: Normal Range of Motion Respiratory/Chest: Present: Clear to Auscultation, Good Air Exchange. No: Respiratory Distress, Accessory Muscle Use Cardiovascular: Present: Regular Rate and Rhythm, Normal S1, S2. No: Murmurs Abdomen: No: Tenderness, Distention, Peritoneal Signs Back: Present: Normal Inspection Upper Extremity: Present: Normal Inspection. No: Cyanosis, Edema Lower Extremity: Present: Normal Inspection. No: Edema Neurological: Present: GCS=15, CN II-XII Intact, Speech Normal Skin: Present: Warm, Dry, Normal Color. No: Rashes Psychiatric: Present: Alert, Oriented x 3, Normal Insight, Normal Concentration , Depressed Mood, Suicidal Ideation. No: Normal Affect (Flat affect) Medical Decision Making ED Course and Treatment: 08/13/17 22:07 Impression: Patient is a 26 year old female who is experiencing depression and suicidal ideation. Differential Diagnosis included but are not limited to: Decompensated depression, suicidal ideation, and PTSD. Plan: --labs --EKG --Chest X-ray -- Reassess and disposition Prior Visits: Notes and results from previous visits were reviewed. Progress Notes: 08/13/17 22:07 PES was notified. 08/13/17 22:56 EKG shows NSR at 87bpm with normal interval, normal EKG. Interpreted by me. 08/14/17 00:48 Chest x-ray shows no acute process. Interpreted by me. 08/14/17 02:19 Patient was evaluated and cleared by PES for discharge. Patient instructed to follow up with her psychiatrist. Reevaluation: On reevaluation the patient feels better and is in no acute distress. I have discussed the results and plan with the patient, who expresses understanding. Patient given the opportunity to ask question, all questions were answered and there is agreement with the plan to discharge the patient home . Patient was evaluated by PES and is stable for discharge. Patient was instructed to follow up with her psychiatrist in 1-2 days or return if symptoms persist/worsen or new concerning symptoms arise. - Lab Interpretations Lab Results: 08/13/17 22:58 08/13/17 22:58 Lab Results 08/13/17 22:58: Urine Opiates Screen Negative, Urine Methadone Screen Negative, Ur Barbiturates Screen Positive H, Ur Phencyclidine Scrn Negative, Ur Amphetamines Screen Negative, U Benzodiazepines Scrn Negative, U Oth Cocaine Metabols Negative, U Cannabinoids Screen Negative 08/13/17 22:58: Alcohol, Quantitative < 10 08/13/17 22:58: Sodium 145, Potassium 4.1, Chloride 107, Carbon Dioxide 27, Anion Gap 15, BUN 9, Creatinine 0.8, Est GFR ( Amer) > 60, Est GFR (Non- Af Amer) > 60, Random Glucose 100, Calcium 9.0, Total Bilirubin 0.1 L, AST 21, ALT 19, Alkaline Phosphatase 98, Total Protein 6.7, Albumin 3.8, Globulin 2.9, Albumin/Globulin Ratio 1.3 08/13/17 22:58: WBC 11.5 H, RBC 4.94, Hgb 13.4, Hct 40.5, MCV 82.0, MCH 27.1, MCHC 33.1, RDW 16.7 H, Plt Count 278, MPV 9.2 I have reviewed the lab results: Yes - RAD Interpretation Radiology Orders: 08/13/17 22:00 CHEST PORTABLE [RAD] Stat Information Systems Coordinator: ED Physician - Scribe Statement The provider has reviewed the documentation as recorded by the Scribe Joshua White Provider Scribe Attestation: All medical record entries made by the Scribe were at my direction and personally dictated by me. I have reviewed the chart and agree that the record accurately reflects my personal performance of the history, physical exam, medical decision making, and the department course for this patient. I have also personally directed, reviewed, and agree with the discharge instructions and disposition. Disposition/Present on Arrival - Present on Arrival Any Indicators Present on Arrival: No History of DVT/PE: No History of Uncontrolled Diabetes: No Urinary Catheter: No History of Decub. Ulcer: No History Surgical Site Infection Following: None - Disposition Have Diagnosis and Disposition been Completed?: Yes Diagnosis: Depression Disposition: HOME/ ROUTINE Disposition Time: 02:22 Patient Plan: Discharge Condition: STABLE Discharge Instructions (ExitCare): Depression, Adult (DC) Additional Instructions: Follow up with your doctor this week as instructed. Referrals: Magdalena Hewitt MD [Primary Care Provider] - Follow up with primary Forms: [email or web address] (Angolan)
[2017-08-13 23:03] LABS: HEMOGLOBIN 13.4 g/dL (12.0-16.0); MEAN CORPUSCULAR HEMOGLOBIN 27.1 pg (25.0-35.0); MEAN CORPUSCULAR HGB CONC 33.1 g/dl (31.0-37.0); MEAN PLATELET VOLUME 9.2 fl (7.0-11.0); RBC 4.94 10^6/uL (3.5-6.1); RED CELL DISTRIBUTION WIDTH 16.7 % (11.5-14.5); WHITE BLOOD COUNT 11.5 10^3/ul (4.5-11.0)
[2017-08-13 23:19] LABS: ALB/GLOB RATIO 1.3 (1.1-1.8); ALBUMIN 3.8 g/dL (3.0-4.8); ALT/SGPT 19 U/L (7-56); AST/SGOT 21 U/L (14-36); BLOOD UREA NITROGEN 9 mg/dL (7-21); GFR AFRICAN-AMERICAN > 60; GFR NON-AFRICAN AMERICAN > 60
[2017-08-13 23:25] LABS: BARBITURATES, UR POSITIVE (NEGATIVE); BENZODIAZEPINES, UR NEGATIVE (NEGATIVE); OPIATES, UR NEGATIVE (NEGATIVE); PHENCYCLIDINE, UR NEGATIVE (NEGATIVE)
[2017-08-14 01:15] VITALS: O2SAT 100
[2017-08-14 02:51] VITALS: BP 105/62; PULSE 89; RESP 16; TEMP 98.1
--- NOTE | 2017-08-14 08:10 | RAD ---
HISTORY: Medical clearance COMPARISON: Comparison chest 03/07/2017 FINDINGS: LUNGS: No active pulmonary disease. PLEURA: No significant pleural effusion identified, no pneumothorax apparent. CARDIOVASCULAR: Normal. OSSEOUS STRUCTURES: No significant abnormalities. VISUALIZED UPPER ABDOMEN: Normal. OTHER FINDINGS: None. IMPRESSION: No active disease.
--- NOTE | 2017-08-14 10:27 | CARD ---
APPROVED REPORT EKG Measurement Heart [id number] <Conclusion> Normal sinus rhythm Normal ECG
== END 2017-08-14 02:51 | disposition home or self-care (01) ==
LOC: ED 21:25
DX: F32.9 Major depressive disorder, single episode, unspecified (principal); F43.10 Post-traumatic stress disorder, unspecified; I10 Essential (primary) hypertension; I48.91 Unspecified atrial fibrillation; Z95.5 Presence of coronary angioplasty implant and graft; F17.210 Nicotine dependence, cigarettes, uncomplicated

== ENCOUNTER 2017-10-08 23:07 | Emergency (ER) | payer OTHER ==
[2017-10-08 23:11] VITALS: BMI 28.3
[2017-10-08 23:34] VITALS: RESP 18; O2SAT 100
[2017-10-08 23:39] VITALS: TEMP 100.5
--- NOTE | 2017-10-09 00:33 | ED PDOC ---
Arrival/HPI - General Chief Complaint: Chest Pain Time Seen by Provider: 10/08/17 23:32 Historian: Patient - History of Present Illness Narrative History of Present Illness (Text): 10/09/17 00:30 Priscilla Ross is a 26 year old female, whose past medical history includes atrial fibrillation s/p ablation, anxiety, bipolar disorder, and depression, who presents to the Emergency department complaining of chest pain for 1 week. Patient states pain is present with movement and when touching her chest. Patient was initially at [facility] but left because it was too busy. Patient denies any fever, chills, shortness of breath, nausea, vomiting, diarrhea, urinary symptoms, back pain, neck pain, headache, dizziness, or any other complaints. Time/Duration: 1 week Symptom Onset: Gradual Symptom Course: Unchanged Activities at Onset: Light Context: Home Past Medical History - Provider Review Nursing Documentation Reviewed: Yes - Infectious Disease Hx of Infectious Diseases: None - Tetanus Immunization Tetanus Immunization: Unknown - Cardiac Hx Atrial Fibrillation: Yes (ablation) Other/Comment: Cardiac stent. Afib. loop recorder 2015 - Pulmonary Hx Asthma: Yes - Neurological Hx Neurological Disorder: Yes Hx Syncope: Yes - HEENT Hx HEENT Disorder: No - Renal Hx Renal Disorder: No - Endocrine/Metabolic Hx Endocrine Disorders: No - Hematological/Oncological Hx Blood Disorders: No - Integumentary Hx Dermatological Disorder: No - Musculoskeletal/Rheumatological Hx Back Pain: Yes Other/Comment: Sciatica - Gastrointestinal Hx Gastritis: Yes - Genitourinary/Gynecological Hx Genitourinary Disorders: No Other/Comment: Ovarian Cyst - Psychiatric Hx Anxiety: Yes Hx Bipolar Disorder: Yes Hx Depression: Yes Hx Post Traumatic Stress Disorder: Yes Hx Substance Use: No Other/Comment: Insomnia. PTSD. OCD - Surgical History Hx Cardiac Catheterization: Yes Hx Section: Yes (x3) Hx Coronary Stent: Yes Hx Tubal Ligation: Yes Other/Comment: etopic pregancy 2009. loop recorder placement 2014. loop recorder removal 2016 - Anesthesia Hx Anesthesia: Yes Hx Anesthesia Reactions: No Hx Malignant Hyperthermia: No - Suicidal Assessment Feels Threatened In Home Enviroment: No Family/Social History - Physician Review Nursing Documentation Reviewed: Yes Family/Social History: Unknown Family HX Smoking Status: Heavy Smoker > 10 Cigarettes Daily Hx Alcohol Use: Yes (occasional) Frequency of alcohol use: Daily Hx Substance Use: No Hx Substance Use Treatment: No Allergies/Home Meds Allergies/Adverse Reactions: Allergies aspirin Allergy (Verified 10/08/17 23:11) ANAPHYLAXIS banana Allergy (Verified 10/08/17 23:11) ANAPHYLAXIS latex Allergy (Verified 10/08/17 23:11) ANAPHYLAXIS surgical tape Allergy (Uncoded 10/08/17 23:11) ANAPHYLAXIS Home Medications: Home Meds Medication Instructions Recorded Confirmed Sertraline [Zoloft] 100 mg PO DAILY 01/20/17 08/13/17 Zolpidem [Ambien] 1 tab PO HS 08/01/17 08/13/17 Review of Systems - Physician Review All systems were reviewed & negative as marked: Yes - Review of Systems Constitutional: Normal. absent: Fevers Eyes: Normal ENT: Normal Respiratory: Normal. absent: SOB, Cough Cardiovascular: Chest Pain Gastrointestinal: Normal. absent: Abdominal Pain, Diarrhea, Nausea, Vomiting Genitourinary Female: Normal. absent: Dysuria, Frequency, Hematuria, Urine Output Changes Musculoskeletal: Normal. absent: Back Pain, Neck Pain Skin: Normal. absent: Rash Neurological: Normal. absent: Headache, Dizziness Endocrine: Normal Hemo/Lymphatic: Normal Psychiatric: Normal Physical Exam Vital Signs Reviewed: Yes Vital Signs Temp Pulse Resp BP Pulse Ox 10/09/17 03:55 79 18 97/56 L 100 10/09/17 01:24 98/58 L 10/08/17 23:38 100.5 F H 87 18 97/64 L 100 10/08/17 23:34 83 18 89/56 L 100 Temperature: Afebrile Blood Pressure: Normal Pulse: Regular Respiratory Rate: Normal Appearance: Positive for: Well-Appearing, Non-Toxic, Comfortable Pain Distress: None Mental Status: Positive for: Alert and Oriented X 3 - Systems Exam Head: Present: Atraumatic, Normocephalic Pupils: Present: PERRL Extroacular Muscles: Present: EOMI Conjunctiva: Present: Normal Mouth: Present: Moist Mucous Membranes Neck: Present: Normal Range of Motion Respiratory/Chest: Present: Clear to Auscultation, Good Air Exchange, Tender to Palpation (Tenderness to palpation of chest wall). No: Respiratory Distress, Accessory Muscle Use Cardiovascular: Present: Regular Rate and Rhythm, Normal S1, S2. No: Murmurs Abdomen: No: Tenderness, Distention, Peritoneal Signs Back: Present: Normal Inspection Upper Extremity: Present: Normal Inspection. No: Cyanosis, Edema Lower Extremity: Present: Normal Inspection. No: Edema Neurological: Present: GCS=15, CN II-XII Intact, Speech Normal Skin: Present: Warm, Dry, Normal Color. No: Rashes Psychiatric: Present: Alert, Oriented x 3, Normal Insight, Normal Concentration Medical Decision Making ED Course and Treatment: 10/09/17 00:30 Impression: 26 year old female complaining of chest pain, worse with movement, x1 week. Plan: -- EKG -- Labs, cardiac enzymes, blood cultures -- Urine drug screen -- Morphine -- Reassess and disposition Prior Visits: Notes and results from previous visits were reviewed. On 08/13/2017, pt was seen in the Emergency department for depression and suicidal ideation. Pt was d/c home. Progress Notes: Reviewed EKG, NSR at [address]-segment elevations or depressions, no T-wave inversions, normal intervals. 10/09/17 02:07 Chest X-ray reviewed, shows no acute processes. 10/09/17 05:47 On re-evaluation, patient feels better and is in no acute distress. I have discussed the results and plan with the patient, who expresses understanding. Patient in agreement with plan to be discharged home. Patient is stable for discharge. Patient was instructed to follow up with physician or return if symptoms worsen or new concerning symptoms arise. - Lab Interpretations Lab Results: 10/09/17 00:40 10/09/17 00:40 Lab Results 10/09/17 01:21: pO2 171 H, VBG pH 7.36, VBG pCO2 45.0, VBG HCO3 25.4, VBG Total CO2 26.8, VBG O2 Sat (Calc) 100.0 H, VBG Base Excess -0.4 L, VBG Potassium 3.7, Glucose 86, Lactate 0.5 L, FiO2 21.0, Sodium 137.0, Chloride 109.0 H, Venous Blood Potassium 3.7 10/09/17 01:15: Urine Color Yellow, Urine Appearance Clear, Urine pH 6.5, Ur Specific [place] 1.020, Urine Protein Negative, Urine Glucose (UA) Negative, Urine Ketones Negative, Urine Blood Negative, Urine Nitrate Negative, Urine Bilirubin Negative, Urine Urobilinogen 0.2, Ur Leukocyte Esterase Negative 10/09/17 01:15: Urine Opiates Screen Negative, Urine Methadone Screen Negative, Ur Barbiturates Screen Negative, Ur Phencyclidine Scrn Negative, Ur Amphetamines Screen Negative, U Benzodiazepines Scrn Negative, U Oth Cocaine Metabols Negative, U Cannabinoids Screen Negative 10/09/17 00:40: WBC 10.8, RBC 4.55, Hgb 12.4, Hct 37.3, MCV 82.0, MCH 27.3, MCHC 33.2, RDW 15.5 H, Plt Count 296, MPV 9.0 10/09/17 00:40: Sodium 141, Potassium 3.7, Chloride 106, Carbon Dioxide 26, Anion Gap 13, BUN 10, Creatinine 0.7, Est GFR ( Amer) > 60, Est GFR (Non- Af Amer) > 60, Random Glucose 88, Calcium 8.8, Total Bilirubin 0.2, AST 24, ALT 21, Alkaline Phosphatase 83, Lactate Dehydrogenase 406, Total Creatine Kinase 117, Troponin I < 0.01, Total Protein 6.2, Albumin 3.4, Globulin 2.8, Albumin/ Globulin Ratio 1.2 10/09/17 00:40: PT 11.6, INR 1.02, APTT 30.3 - RAD Interpretation Radiology Orders: 10/09/17 00:58 CHEST PORTABLE [RAD] Stat - Medication Orders Current Medication Orders: Discontinued Medications Sodium Chloride (Sodium Chloride 0.9%) 1,000 mls @ 999 mls/hr IV .Q1H1M STA Stop: 10/09/17 02:26 Last Admin: 10/09/17 02:10 Dose: 999 mls/hr eMAR Start Stop Document 10/09/17 02:10 SS (Rec: 10/09/17 02:10 SS [id number]) Intravenous Solution Start Date 10/09/17 Start Time 01:45 End Date 10/09/17 End time 02:45 Total Infusion Time 60 Morphine Sulfate (Morphine) 2 mg IVP STAT STA Stop: 10/09/17 00:37 Last Admin: 10/09/17 04:05 Dose: 2 mg MAR Pain Assessment Document 10/09/17 04:05 SS (Rec: 10/09/17 04:05 SS [id number]) Pain Reassessment Is this a pain reassessment? No Sleep Is patient sleeping during reassessment? No Presence of Pain Presence of Pain Yes Pain Scale Used Pain Scale Used Numeric Location Pain Location Body Site Back IVP Administration Document 10/09/17 04:05 SS (Rec: 10/09/17 04:05 SS [id number]) Charges for Administration # of IVP Administrations 1 - Scribe Statement The provider has reviewed the documentation as recorded by the Galinaibred Flanagan Provider Scribe Attestation: All medical record entries made by the Scribe were at my direction and personally dictated by me. I have reviewed the chart and agree that the record accurately reflects my personal performance of the history, physical exam, medical decision making, and the department course for this patient. I have also personally directed, reviewed, and agree with the discharge instructions and disposition. Disposition/Present on Arrival - Present on Arrival Any Indicators Present on Arrival: No History of DVT/PE: No History of Uncontrolled Diabetes: No Urinary Catheter: No History of Decub. Ulcer: No History Surgical Site Infection Following: None - Disposition Have Diagnosis and Disposition been Completed?: Yes Diagnosis: Chest pain, Costochondritis Disposition: HOME/ ROUTINE Disposition Time: 05:47 Patient Plan: Discharge Patient Problems: Current Active Problems Problem Status Onset Chest pain Acute Costochondritis Acute Condition: GOOD Discharge Instructions (ExitCare): Costochondritis (DC), Chest Pain (ED) Additional Instructions: Rest/no strenuous physical activity/tylenol as directed /follow up with your doctor this week Forms: [employer] (French)
[2017-10-09] MEDS ORDERED: Morphine 2 mg/ml ISec IVP STA (00:36)
[2017-10-09 00:58] LABS: HEMOGLOBIN 12.4 g/dL (12.0-16.0); MEAN CORPUSCULAR HEMOGLOBIN 27.3 pg (25.0-35.0); MEAN CORPUSCULAR HGB CONC 33.2 g/dl (31.0-37.0); RBC 4.55 10^6/uL (3.5-6.1); RED CELL DISTRIBUTION WIDTH 15.5 % (11.5-14.5); WHITE BLOOD COUNT 10.8 10^3/ul (4.5-11.0)
[2017-10-09 01:06] LABS: ALB/GLOB RATIO 1.2 (1.1-1.8); ALBUMIN 3.4 g/dL (3.0-4.8); ALT/SGPT 21 U/L (7-56); AST/SGOT 24 U/L (14-36); BLOOD UREA NITROGEN 10 mg/dL (7-21); CALCIUM 8.8 mg/dL (8.4-10.5); GFR AFRICAN-AMERICAN > 60; GFR NON-AFRICAN AMERICAN > 60
[2017-10-09 01:12] LABS: INR 1.02 (0.93-1.08); PARTIAL THROMBOPLASTIN TIME 30.3 Seconds (25.1-36.5); PROTHROMBIN TIME 11.6 SECONDS (9.4-12.5)
[2017-10-09 01:18] LABS: TROPONIN I < 0.01 ng/mL
[2017-10-09] MEDS ORDERED: Sodium Chloride 0.9% 1,000 ML IV STA (01:26)
[2017-10-09 01:37] LABS: VENOUS BLOOD GAS BASE EXCESS -0.4 mmol/L (0.0-2.0); VENOUS BLOOD GAS PO2 171 mm/Hg (30-55); VENOUS BLOOD PH 7.36 (7.32-7.43)
[2017-10-09 01:55] LABS: BARBITURATES, UR NEGATIVE (NEGATIVE); BENZODIAZEPINES, UR NEGATIVE (NEGATIVE); OPIATES, UR NEGATIVE (NEGATIVE); PHENCYCLIDINE, UR NEGATIVE (NEGATIVE)
[2017-10-09 02:19] LABS: PH,URINE 6.5 (4.7-8.0); URINE BILIRUBIN NEGATIVE (NEGATIVE); URINE BLOOD NEGATIVE (NEGATIVE); URINE GLUCOSE (UA) NEGATIVE (NEGATIVE); URINE LEUKOCYTE ESTERASE NEGATIVE Leu/uL (NEGATIVE); URINE PROTEIN NEGATIVE mg/dL (<30 mg/dL); URINE UROBILINOGEN 0.2 E.U./dL (<1 E.U./dL)
[2017-10-09 02:28] LABS: URINE APPEARANCE CLEAR (CLEAR); URINE COLOR YELLOW (YELLOW)
[2017-10-09 03:56] VITALS: PULSE 79
[2017-10-09 06:10] VITALS: BP 97/62
--- NOTE | 2017-10-09 08:12 | RAD ---
HISTORY: chest pain COMPARISON: 08/13/2017 FINDINGS: LUNGS: No active pulmonary disease. PLEURA: No significant pleural effusion identified, no pneumothorax apparent. CARDIOVASCULAR: Normal. OSSEOUS STRUCTURES: No significant abnormalities. VISUALIZED UPPER ABDOMEN: Normal. OTHER FINDINGS: None. IMPRESSION: No active disease. No interval pathology noted.
--- NOTE | 2017-10-09 10:04 | CARD ---
APPROVED REPORT EKG Measurement Heart [id number] <Conclusion> Normal sinus rhythm Normal ECG No change
== END 2017-10-09 06:10 | disposition home or self-care (01) ==
LOC: ED 23:07
DX: M94.0 Chondrocostal junction syndrome [Tietze] (principal); R07.9 Chest pain, unspecified; I48.91 Unspecified atrial fibrillation; F41.9 Anxiety disorder, unspecified; Z95.5 Presence of coronary angioplasty implant and graft
CPT/HCPCS: 71045; 80053; 80324; 80345; 80346; 80349; 80353; 80358; 80361; 81003; 82550; 82803; 83615; 83992; 84484; 85027; 85610; 85730; 87086; 93005; 96360; 96374; 99284; J2270; J7030

== ENCOUNTER 2017-10-15 12:03 | Observation (INO) | payer OTHER ==
[2017-10-15 12:21] VITALS: BMI 29.7
[2017-10-15] MEDS ORDERED: Sodium Chloride 0.9% 1,000 ML IV STA (12:40)
--- NOTE | 2017-10-15 13:06 | RAD ---
HISTORY: chest pain COMPARISON: Comparison chest 10/09/2017 FINDINGS: LUNGS: No active pulmonary disease. PLEURA: No significant pleural effusion identified, no pneumothorax apparent. CARDIOVASCULAR: Normal. OSSEOUS STRUCTURES: No significant abnormalities. VISUALIZED UPPER ABDOMEN: Normal. OTHER FINDINGS: None. IMPRESSION: No active disease.
[2017-10-15 13:08] LABS: BASO # 0.04 K/mm3 (0.0-2.0); BASO % 0.4 % (0.0-3.0); EOS # 0.2 (0.0-0.7); EOS % 1.8 % (1.5-5.0); GRAN # 7.22 (1.4-6.5); GRAN % 68.5 % (50.0-68.0); HEMOGLOBIN 12.1 g/dL (12.0-16.0); LYMPH # 2.4 (1.2-3.4); LYMPH % 23.1 % (22.0-35.0); MEAN CELL VOLUME 82.1 fl (80.0-105.0); MEAN CORPUSCULAR HEMOGLOBIN 26.8 pg (25.0-35.0); MEAN CORPUSCULAR HGB CONC 32.6 g/dl (31.0-37.0); MEAN PLATELET VOLUME 8.8 fl (7.0-11.0); MONO # 0.7 (0.1-0.6); MONO % 6.2 % (1.0-6.0); RBC 4.52 10^6/uL (3.5-6.1); RED CELL DISTRIBUTION WIDTH 15.2 % (11.5-14.5); WHITE BLOOD COUNT 10.5 10^3/ul (4.5-11.0)
[2017-10-15 13:10] LABS: PH,URINE 6.5 (4.7-8.0); URINE BILIRUBIN NEGATIVE (NEGATIVE); URINE BLOOD NEGATIVE (NEGATIVE); URINE GLUCOSE (UA) NEGATIVE (NEGATIVE); URINE LEUKOCYTE ESTERASE NEGATIVE Leu/uL (NEGATIVE); URINE PROTEIN TRACE mg/dL (<30 mg/dL)
[2017-10-15 13:16] LABS: URINE APPEARANCE CLEAR (CLEAR); URINE COLOR YELLOW (YELLOW)
[2017-10-15 13:17] LABS: HCG,QUALITATIVE URINE NEGATIVE (NEGATIVE)
--- NOTE | 2017-10-15 13:17 | ED PDOC ---
Arrival/HPI - General Chief Complaint: Medical Clearance Time Seen by Provider: 10/15/17 12:39 Historian: Patient - History of Present Illness Narrative History of Present Illness (Text): 10/15/17 12:39 26 year old female, whose past medical history includes atrial fibrillation s/p ablation, anxiety, bipolar disorder, and depression, who presents to the Emergency department for evaluation of low blood pressure prior to arrival. Patient states she was at her PMD's office when her blood pressure was measured to be 83/64, lower than her baseline and was referred to the Emergency department by her PMD for evaluation. Patient informs associated chest pain, radiating to her left arm. Patient also informs loss of appetite, dizziness, and headache since this morning. Patient denies any fever, chills, nausea, vomiting, diarrhea, abdominal pain, shortness of breath, or any other complaints. PMD: Dr. Hewitt Time/Duration: Prior to Arrival Symptom Onset: Gradual Symptom Course: Unchanged Quality: Aching Activities at Onset: Light Context: Other (referred by PMD ) Past Medical History - Provider Review Nursing Documentation Reviewed: Yes - Infectious Disease Hx of Infectious Diseases: None - Tetanus Immunization Tetanus Immunization: Unknown - Cardiac Hx Atrial Fibrillation: Yes (ablation) Other/Comment: Cardiac stent. Afib. loop recorder 2014 - Pulmonary Hx Asthma: Yes - Neurological Hx Neurological Disorder: Yes Hx Syncope: Yes - HEENT Hx HEENT Disorder: No - Renal Hx Renal Disorder: No - Endocrine/Metabolic Hx Endocrine Disorders: No - Hematological/Oncological Hx Blood Disorders: No - Integumentary Hx Dermatological Disorder: No - Musculoskeletal/Rheumatological Hx Back Pain: Yes Other/Comment: Sciatica - Gastrointestinal Hx Gastritis: Yes - Genitourinary/Gynecological Hx Genitourinary Disorders: No Other/Comment: Ovarian Cyst - Psychiatric Hx Anxiety: Yes Hx Bipolar Disorder: Yes Hx Depression: Yes Hx Post Traumatic Stress Disorder: Yes Hx Substance Use: No Other/Comment: Insomnia. PTSD. OCD - Surgical History Hx Cardiac Catheterization: Yes Hx Section: Yes (x3) Hx Coronary Stent: Yes Hx Tubal Ligation: Yes Other/Comment: etopic pregancy 2009. loop recorder placement 2014. loop recorder removal 2016 - Anesthesia Hx Anesthesia: Yes Hx Anesthesia Reactions: No Hx Malignant Hyperthermia: No - Suicidal Assessment Feels Threatened In Home Enviroment: No Family/Social History - Physician Review Nursing Documentation Reviewed: Yes Family/Social History: No Known Family HX Smoking Status: Heavy Smoker > 10 Cigarettes Daily Hx Alcohol Use: Yes (occasional) Frequency of alcohol use: Socially Hx Substance Use: No Hx Substance Use Treatment: No Allergies/Home Meds Allergies/Adverse Reactions: Allergies aspirin Allergy (Verified 10/08/17 23:11) ANAPHYLAXIS banana Allergy (Verified 10/08/17 23:11) ANAPHYLAXIS latex Allergy (Verified 10/08/17 23:11) ANAPHYLAXIS surgical tape Allergy (Uncoded 10/08/17 23:11) ANAPHYLAXIS Home Medications: Home Meds Medication Instructions Recorded Confirmed Acetaminophen/Butalbital/Caf 1 tab PO PRN PRN 10/15/17 10/15/17 [Fioricet] Albuterol 0.083% [Albuterol 0.083% 1 vial IH QID PRN 10/15/17 10/15/17 Inhal Josie (2.5 mg/3 ml) UD] Metoprolol Tartrate [Lopressor] 1 tab PO BID 10/15/17 10/15/17 Midodrine [Proamatine] 1 tab PO TID 10/15/17 10/15/17 Mirtazapine [Remeron] 1 tab PO HS 10/15/17 10/15/17 Risperidone [Risperdal] 1 tab PO DAILY 10/15/17 10/15/17 Sertraline [Zoloft] 1 tab PO BID PRN 10/15/17 10/15/17 traMADol [Ultram] 1 tab PO PRN PRN 10/15/17 10/15/17 traZODone [Desyrel] 1 tab PO HS 10/15/17 10/15/17 Review of Systems - Physician Review All systems were reviewed & negative as marked: Yes - Review of Systems Constitutional: absent: Fevers Respiratory: absent: SOB Cardiovascular: Chest Pain Gastrointestinal: Appetite Changes. absent: Abdominal Pain, Diarrhea, Nausea, Vomiting Neurological: Headache, Dizziness Physical Exam - Physical Exam Narrative Physical Exam (Text): 10/15/17 12:39 Gen: VS reviewed, alert, well developed, well nourished, nontoxic, mild distress ENT: normal pharynx Eye: EOMI, PERRL Neck: no JVD, supple, no adenopathy CV: regular rate, regular rhythm, no rubs,no murmur, no gallops, S1, S2, pulses equal and strong Pulm: no distress, clear to auscultation, no wheeze, no rhonchi, breath sounds equal, no rales Abd: soft, nontender, no guarding, no rebound, no rigidity, normal bowel sounds Ext: no edema Skin: good color, no rash, no cyanosis Psych: responds appropriately to questions, normal affect Neuro: oriented x3, CN2-12 intact grossly, motor intact, sensation intact Vital Signs Reviewed: Yes Vital Signs Temp Pulse Resp BP Pulse Ox 10/15/17 18:40 98.7 F 68 18 87/52 L 94 L 10/15/17 18:19 82 20 88/56 L 99 10/15/17 16:41 98.3 F 80 18 87/54 L 99 10/15/17 15:30 72 18 87/51 L 99 10/15/17 14:13 64 18 89/51 L 99 10/15/17 13:00 80 18 86/46 L 99 10/15/17 12:11 98.7 F 103 H 18 96/63 L 97 Temperature: Afebrile Blood Pressure: Hypotensive Pulse: Tachycardic Respiratory Rate: Normal Appearance: Positive for: Well-Appearing, Non-Toxic, Comfortable Pain Distress: Mild Mental Status: Positive for: Alert and Oriented X 3 Medical Decision Making ED Course and Treatment: 10/15/17 12:39 Impression: 26 year old female presents to the emergency department for evaluation of low blood pressure. Plan: --ekg --labs --Chest X-Ray --IV fluids --Urinalysis, HCG -- Reassess and disposition Prior Visits: Notes and results from previous visits were reviewed. Progress Notes: 10/15/17 15:53 Discussed case with hospitalist test preparation tutor, who is aware and agrees with Emergency department management plan, accepts patient for admission to Tele/Obs. 10/15/17 16:19 bedside ultrasound performed by myself, informal study, there was no significant pericardial effusion, formal study recommended. 10/15/17 16:20 patient was seen hypotension which appears to be a chronic issue, patient admitted as she is symptomatic with lightheadedness. ddx including but not limited to medication polypharmacy, unlikley aortic dissection, unlikely PE. - Lab Interpretations Lab Results: 10/15/17 13:00 10/15/17 13:00 Lab Results 10/15/17 13:00: Sodium 143, Potassium 3.8, Chloride 106, Carbon Dioxide 27, Anion Gap 13, BUN 9, Creatinine 0.7, Est GFR ( Amer) > 60, Est GFR (Non- Af Amer) > 60, Random Glucose 92, Calcium 8.6, Total Bilirubin 0.2, AST 19, ALT 17, Alkaline Phosphatase 79, Troponin I < 0.01, Total Protein 6.1, Albumin 3.4, Globulin 2.7, Albumin/Globulin Ratio 1.2 10/15/17 13:00: Urine Color Yellow, Urine Appearance Clear, Urine pH 6.5, Ur Specific [place] 1.020, Urine Protein Trace H, Urine Glucose (UA) Negative, Urine Ketones Negative, Urine Blood Negative, Urine Nitrate Negative, Urine Bilirubin Negative, Urine Urobilinogen 1.0 H, Ur Leukocyte Esterase Negative, Urine RBC 0 - 2, Urine WBC 0 - 2, Ur Epithelial Cells 4 - 5, Urine Bacteria Mod , Urine HCG, Qual Negative 10/15/17 13:00: PT 12.8 H, INR 1.11 H, APTT 27.3 10/15/17 13:00: WBC 10.5, RBC 4.52, Hgb 12.1, Hct 37.1, MCV 82.1, MCH 26.8, MCHC 32.6, RDW 15.2 H, Plt Count 276, MPV 8.8, Gran % 68.5 H, Lymph % (Auto) 23.1, [place] % (Auto) 6.2 H, Eos % (Auto) 1.8, Baso % (Auto) 0.4, Gran # 7.22 H, Lymph # (Auto) 2.4, [place] # (Auto) 0.7 H, Eos # (Auto) 0.2, Baso # (Auto) 0.04 - RAD Interpretation Narrative RAD Interpretations (Text): 10/15/17 13:50 Chest x-ray reviewed by radiologist, shows: no active disease Radiology Orders: 10/15/17 12:39 CHEST PORTABLE [RAD] Stat Router Setter: Radiologist - EKG Interpretation EKG Interpretation (Text): 10/15/17 12:20 NSR @ 96 bpm, nml qrs, nml axis, no acute sttw abn Interpreted by ED Physician: Yes Type: 12 lead EKG - Medication Orders Current Medication Orders: Albuterol Sulfate (Albuterol 0.083% Inhal Josie (2.5 Mg/3 Ml) Ud) 2.5 mg IH QID PRN PRN Reason: Shortness of Breath Sodium Chloride (Sodium Chloride 0.9%) 1,000 mls @ 100 mls/hr IV .Q10H DAVID Last Admin: 10/15/17 18:43 Dose: 100 mls/hr eMAR Start Stop Document 10/15/17 18:43 DEL (Rec: 10/15/17 18:44 DEL [id number]) Intravenous Solution Start Date 10/15/17 Start Time 18:44 Midodrine (Proamatine) 5 mg PO TID DAVID Last Admin: 10/15/17 18:18 Dose: 5 mg Mirtazapine (Remeron) 30 mg PO HS DAVID Ondansetron HCl (Zofran Inj) 4 mg IVP Q4H PRN PRN Reason: Nausea/Vomiting Pantoprazole Sodium (Protonix Ec Tab) 40 mg PO 0600 DAVID Risperidone (Risperdal Tab) 1 mg PO HS DAVID PRN Reason: Protocol Trazodone HCl (Desyrel) 50 mg PO HS PRN PRN Reason: Insomnia Discontinued Medications Sodium Chloride (Sodium Chloride 0.9%) 1,000 mls @ 999 mls/hr IV .Q1H1M STA Stop: 10/15/17 13:40 Last Admin: 10/15/17 13:03 Dose: 999 mls/hr eMAR Start Stop Document 10/15/17 13:03 ISIDRA (Rec: 10/15/17 13:04 [email or web address] [id number]) Intravenous Solution Start Date 10/15/17 Start Time 12:55 End Date 10/15/17 End time 13:55 Total Infusion Time 60 - Scribe Statement The provider has reviewed the documentation as recorded by the Scribred Dickinson, [facility] All medical record entries made by the Scribe were at my direction and personally dictated by me. I have reviewed the chart and agree that the record accurately reflects my personal performance of the history, physical exam, medical decision making, and the department course for this patient. I have also personally directed, reviewed, and agree with the discharge instructions and disposition. Disposition/Present on Arrival - Present on Arrival Any Indicators Present on Arrival: No History of DVT/PE: No History of Uncontrolled Diabetes: No Urinary Catheter: No History of Decub. Ulcer: No History Surgical Site Infection Following: None - Disposition Have Diagnosis and Disposition been Completed?: Yes Diagnosis: Hypotension Disposition: HOSPITALIZED Disposition Time: 19:10 Patient Problems: Current Active Problems Problem Status Onset Hypotension Acute Condition: FAIR
[2017-10-15 13:21] LABS: ALB/GLOB RATIO 1.2 (1.1-1.8); ALBUMIN 3.4 g/dL (3.0-4.8); ALT/SGPT 17 U/L (7-56); AST/SGOT 19 U/L (14-36); BLOOD UREA NITROGEN 9 mg/dL (7-21); CALCIUM 8.6 mg/dL (8.4-10.5); GFR AFRICAN-AMERICAN > 60; GFR NON-AFRICAN AMERICAN > 60
[2017-10-15 13:29] LABS: INR 1.11 (0.93-1.08); PARTIAL THROMBOPLASTIN TIME 27.3 Seconds (25.1-36.5); PROTHROMBIN TIME 12.8 SECONDS (9.4-12.5)
[2017-10-15 13:31] LABS: TROPONIN I < 0.01 ng/mL
[2017-10-15 13:44] LABS: URINE BACTERIA MOD (NEG); URINE RBC 0 - 2 /hpf (0-2); URINE WBC 0 - 2 /hpf (0-6)
--- NOTE | 2017-10-15 15:40 | CARD ---
APPROVED REPORT EKG Measurement Heart [id number] <Conclusion> Normal sinus rhythm Normal ECG
[2017-10-15] MEDS ORDERED: Albuterol 0.083% Inhal Sol (2.5 mg/3 mL) UD IH PRN (17:37)
--- NOTE | 2017-10-15 18:16 | CP.PCM.HP ---
<Chema Farias - Last Filed: 10/15/17 17:57> History of Present Illness - History of Present Illness History of Present Illness: Mrs. Ross is a 26 year old female with past medical history significant for Atrial Fibrillation s/p ablation (2014), hypotension, asthma, bipolar disorder, PTSD, anxiety and depression who presented from her PMD's office for hypotension. Patient reports that she was seen by Dr. Hewitt in her office today for a follow up visit after she was seen in the ED last week for chest pain. During the visit, patient was noted to have hypotension in 80/50's range which was noted to be below her normal range of 90/60's. Patient reports this was unchanged when Dr. Hewitt performed orthostatic vital sign testing in her office. Patient notes that she was prescribed Midodrine for her hypotension by her caddy packer last month but has been without this medication for two weeks due to it being back ordered. She reports that she also has had intermittent dizziness for the past week that is unrelated to position or activity but denies any LOC or falls. She also endorses a 6/10 intermittent substernal sharp chest pain that radiates to her left arm that she gets with activity that is associated with mild SOB, palpitations and nausea. This pain self resolves with rest after 2-3 minutes. She denies any fevers, chills, headache, changes in her vision, sore throat, leg swelling, abdominal pain, vomiting, diarrhea, melena, hematochezia, changes in urine output, heavy bleeding associated with her menstrual cycle, rashes, or any numbness/tingling/weakness of any extremity. PMH: As stated above PSH: 3 C-Sections, Tubal Ligation, Cardiac Cath (2013-no CAD), and Cardiac Ablation (2014) Family History: Maternal Grandmother-AK at age 53; Maternal Grandfather-HTN, HLD , and CAD Social History: Current half pack per day smoker with 5 year pack smoking history, social alcohol use, and denies any illicit drug use; Lives at home with her 3 children Allergies: ASA, Banana, Latex and Surgical Tape Home Medications: As per JUN PMD: Dr. Hewitt ([place]) Hand Hose Cutter: Dr. Jones ([place]) Present on Admission - Present on Admission Any Indicators Present on Admission: No Review of Systems - Review of Systems Review of Systems: As stated in HPI, otherwise negative Past Patient History - Infectious Disease Hx of Infectious Diseases: None - Tetanus Immunizations Tetanus Immunization: Unknown - Past Medical History & Family History Past Medical History?: Yes - Past Social History Smoking Status: Heavy Smoker > 10 Cigarettes Daily - CARDIAC Hx Atrial Fibrillation: Yes (ablation) Other/Comment: Cardiac stent. Afib. loop recorder 2015 - PULMONARY Hx Asthma: Yes - NEUROLOGICAL Hx Neurological Disorder: Yes Hx Syncope: Yes - HEENT Hx HEENT Problems: No - RENAL Hx Chronic Kidney Disease: No - ENDOCRINE/METABOLIC Hx Endocrine Disorders: No - HEMATOLOGICAL/ONCOLOGICAL Hx Blood Disorders: No - INTEGUMENTARY Hx Dermatological Problems: No - MUSCULOSKELETAL/RHEUMATOLOGICAL Hx Back Pain: Yes Other/Comment: Sciatica - GASTROINTESTINAL Hx Gastritis: Yes - GENITOURINARY/GYNECOLOGICAL Hx Genitourinary Disorders: No Other/Comment: Ovarian Cyst - PSYCHIATRIC Hx Anxiety: Yes Hx Bipolar Disorder: Yes Hx Depression: Yes Hx Post Traumatic Stress Disorder: Yes Hx Substance Use: No Other/Comment: Insomnia. PTSD. OCD - SURGICAL HISTORY Hx Cardiac Catheterization: Yes Hx Section: Yes (x3) Hx Coronary Stent: Yes Hx Tubal Ligation: Yes Other/Comment: etopic pregancy 2009. loop recorder placement 2014. loop recorder removal 2016 - ANESTHESIA Hx Anesthesia: Yes Hx Anesthesia Reactions: No Hx Malignant Hyperthermia: No Meds Home Medications: Home Medication List Medication Instructions Recorded Confirmed Type Amoxicillin/Clavulanate [Augmentin 1 tab PO BID 7 Days tab 10/16/17 Rx 875 MG-125 MG] Allergies/Adverse Reactions: Allergies Allergy/AdvReac Type Severity Reaction Status Date / Time acetaminophen [From Tylenol] Allergy URTICARIA Verified 10/16/17 03:11 aspirin Allergy ANAPHYLAXIS Verified 10/08/17 23:11 banana Allergy ANAPHYLAXIS Verified 10/08/17 23:11 ibuprofen [From Motrin] Allergy URTICARIA Verified 10/16/17 03:12 latex Allergy ANAPHYLAXIS Verified 10/08/17 23:11 surgical tape Allergy URTICARIA Uncoded 10/16/17 03:11 Physical Exam - Constitutional Appears: Non-toxic, No Acute Distress - Head Exam Head Exam: ATRAUMATIC, NORMOCEPHALIC - Eye Exam Eye Exam: EOMI, Normal appearance, PERRL Pupil Exam: NORMAL ACCOMODATION - ENT Exam ENT Exam: Mucous Membranes Dry - Neck Exam Neck exam: Positive for: Full Rom, Normal Inspection. Negative for: Lymphadenopathy, Meningismus, Tenderness, Thyromegaly - Respiratory Exam Respiratory Exam: Clear to Auscultation Bilateral, NORMAL BREATHING PATTERN. absent: Accessory Muscle Use, Chest Wall Tenderness, Decreased Breath Sounds, Prolonged Expiratory Phase, Rales, Rhonchi, Wheezes, Respiratory Distress, Stridor - Cardiovascular Exam Cardiovascular Exam: REGULAR RHYTHM, RRR, +S1, +S2. absent: Bradycardia, Tachycardia, Clicks, Diastolic murmur, Gallop, Irregular Rhythm, JVD, Rubs, +S4 , Systolic Murmur - GI/Abdominal Exam GI & Abdominal Exam: Normal Bowel Sounds, Soft. absent: Tenderness - Extremities Exam Extremities exam: Positive for: full ROM, normal capillary refill, normal inspection, pedal pulses present. Negative for: calf tenderness, joint swelling , pedal edema, tenderness - Back Exam Back exam: NORMAL INSPECTION - Neurological Exam Neurological exam: Alert, CN II-XII Intact, Oriented x3 - Psychiatric Exam Psychiatric exam: Normal Affect, Normal Mood - Skin Skin Exam: Dry, Intact, Normal Color, Warm Results - Vital Signs Recent Vital Signs: Last Vital Signs Temp 98.3 F 10/15/17 16:41 Pulse 80 10/15/17 16:41 Resp 18 10/15/17 16:41 BP 87/54 L 10/15/17 16:41 Pulse Ox 99 10/15/17 16:41 - Labs Result Diagrams: 10/15/17 13:00 10/15/17 13:00 - EKG Data EKG shows normal: Sinus rhythm Rate: Normal Assessment & Plan - Assessment and Plan (Free Text) Assessment: 26 year old female with past medical history significant for Atrial Fibrillation s/p ablation (2014), hypotension, bipolar disorder, PTSD, anxiety and depression who presented from her PMD's office for hypotension. Patient was given one liter bolus of normal saline in ED with minimal response in BP. She will be started on her home dose of Midodrine as well as IVF. Patient also notes that she has been having chest pain. Serial troponins are pending and cardiology consultation has been requested. Plan: 1. Hypotension -Given 1L bolus NS in ED with minimal response in BP -Continue home Midodrine 5mg PO TID -Normal Saline at 100mls/hr -Vital Signs Q4H 2. Chest Pain -Chest X-Ray showed no acute disease -EKG showed NSR at [address] or T wave abnormalities -Initial troponin negative with two Q6H troponins pending -Echocardiogram, Lipid Panel and TSH pending -Holding home Metoprolol in setting of hypotension -Telemetry monitoring -Cardiology consulted, all recommendations appreciated 3. History of Asthma -Continue home Albuterol PRN 4. History of Depression -Continue home Remeron 5. History of Bipolar Disorder -Continue home Risperdal GI Prophylaxis: Protonix DVT Prophylaxis: SCD's Diet: Regular Patient seen and case discussed with attending, Dr. Hsu. Ezio PGY2 - Date & Time Date: 10/15/17 Time: 18:17 Decision To Admit - Pt Status Changed To: Hospital Disposition Of: Observation - . Bed Request Type: Telemetry <Ney Hsu - Last Filed: 10/16/17 14:57> Results - Vital Signs Recent Vital Signs: Last Vital Signs Temp 98.8 F 10/16/17 12:00 Pulse 69 10/16/17 12:00 Resp 16 10/16/17 12:00 BP 97/55 L 10/16/17 12:00 Pulse Ox 98 10/16/17 06:00 - Labs Result Diagrams: 10/16/17 06:00 10/16/17 06:00 Labs: Laboratory Results - last 24 hr 10/15/17 10/15/17 10/15/17 19:35 19:35 20:00 WBC RBC Hgb Hct MCV MCH MCHC RDW Plt Count MPV Gran % Lymph % (Auto) [place] % (Auto) Eos % (Auto) Baso % (Auto) Gran # Lymph # (Auto) [place] # (Auto) Eos # (Auto) Baso # (Auto) Sodium Potassium Chloride Carbon Dioxide Anion Gap BUN Creatinine Est GFR ( Amer) Est GFR (Non-Af Amer) Random Glucose Lactic Acid 0.8 Calcium Total Bilirubin AST ALT Alkaline Phosphatase Troponin I < 0.01 < 0.01 Total Protein Albumin Globulin Albumin/Globulin Ratio Triglycerides Cholesterol LDL Cholesterol Direct HDL Cholesterol TSH 3rd Generation Urine Opiates Screen Urine Methadone Screen Ur Barbiturates Screen Ur Phencyclidine Scrn Ur Amphetamines Screen U Benzodiazepines Scrn U Oth Cocaine Metabols U Cannabinoids Screen 10/16/17 10/16/17 10/16/17 01:05 05:35 06:00 WBC 10.5 RBC 4.28 Hgb 11.4 L Hct 35.4 L MCV 82.7 MCH 26.6 MCHC 32.2 RDW 15.3 H Plt Count 272 MPV 9.0 Gran % 56.3 Lymph % (Auto) 32.4 [place] % (Auto) 8.8 H Eos % (Auto) 2.3 Baso % (Auto) 0.2 Gran # 5.89 Lymph # (Auto) 3.4 [place] # (Auto) 0.9 H Eos # (Auto) 0.2 Baso # (Auto) 0.02 Sodium Potassium Chloride Carbon Dioxide Anion Gap BUN Creatinine Est GFR ( Amer) Est GFR (Non-Af Amer) Random Glucose Lactic Acid Calcium Total Bilirubin AST ALT Alkaline Phosphatase Troponin I < 0.01 Total Protein Albumin Globulin Albumin/Globulin Ratio Triglycerides Cholesterol LDL Cholesterol Direct HDL Cholesterol TSH 3rd Generation Urine Opiates Screen Negative Urine Methadone Screen Negative Ur Barbiturates Screen Negative Ur Phencyclidine Scrn Negative Ur Amphetamines Screen Negative U Benzodiazepines Scrn Negative U Oth Cocaine Metabols Negative U Cannabinoids Screen Negative 10/16/17 10/16/17 06:00 06:00 WBC RBC Hgb Hct MCV MCH MCHC RDW Plt Count MPV Gran % Lymph % (Auto) [place] % (Auto) Eos % (Auto) Baso % (Auto) Gran # Lymph # (Auto) [place] # (Auto) Eos # (Auto) Baso # (Auto) Sodium 141 Potassium 4.1 Chloride 111 H Carbon Dioxide 25 Anion Gap 9 L BUN 9 Creatinine 0.6 L Est GFR ( Amer) > 60 Est GFR (Non-Af Amer) > 60 Random Glucose 88 Lactic Acid Calcium 7.9 L Total Bilirubin < 0.1 L AST 17 ALT 19 Alkaline Phosphatase 79 Troponin I Total Protein 5.2 L Albumin 2.6 L Globulin 2.5 Albumin/Globulin Ratio 1.0 L Triglycerides 92 Cholesterol 147 LDL Cholesterol Direct 79 HDL Cholesterol 46 TSH 3rd Generation 1.21 Urine Opiates Screen Urine Methadone Screen Ur Barbiturates Screen Ur Phencyclidine Scrn Ur Amphetamines Screen U Benzodiazepines Scrn U Oth Cocaine Metabols U Cannabinoids Screen Attending/Attestation - Attestation I have personally seen and examined this patient.: Yes I have fully participated in the care of the patient.: Yes I have reviewed all pertinent clinical information: Yes Notes (Text): 10/16/17 14:53 Attending note; Patient seen and examined with resident in ER. Patient is a 26 year old female with the past medical history significant for Atrial Fibrillation s/p ablation (2014), hypotension, asthma, bipolar disorder, PTSD, anxiety and depression who presented from her PMD's office for hypotension. Patient was given 1 L of normal saline in the ER. Blood pressure is still 80/ 50s. Complaining of mild dizziness. Patient with a history of long-standing hypotension. Patient was prescribed Midodrine by her caddy packer. Did not take the medication. No evidence of sepsis. Lactic acid ordered. Continue IV fluids. Chest discomfort;EKG showed normal sinus rhythm. Enzymes 1 negative . Admit to telemetry . cardiac enzymes 3 ordered . cardiology evaluation requested. Patient had cardiac cath in 2016 which was normal. Stress test scheduled for end of October. Upon discharge patient will follow up with PMD Dr. Hewitt . Patient will follow-up with cardiology Dr. Jones.
[2017-10-15] MEDS: Sodium Chloride 0.9% 1,000 ML IV SCH (18:43)
[2017-10-16] MEDS: Sodium Chloride 0.9% 1,000 ML IV SCH (03:55)
[2017-10-16] MEDS ORDERED: Pantoprazole 40 mg EC Tab PO SCH (06:00)
[2017-10-16 06:19] VITALS: O2SAT 98
[2017-10-16 06:41] LABS: BASO # 0.02 K/mm3 (0.0-2.0); BASO % 0.2 % (0.0-3.0); EOS # 0.2 (0.0-0.7); EOS % 2.3 % (1.5-5.0); GRAN # 5.89 (1.4-6.5); GRAN % 56.3 % (50.0-68.0); HEMOGLOBIN 11.4 g/dL (12.0-16.0); LYMPH # 3.4 (1.2-3.4); LYMPH % 32.4 % (22.0-35.0); MEAN CELL VOLUME 82.7 fl (80.0-105.0); MEAN CORPUSCULAR HEMOGLOBIN 26.6 pg (25.0-35.0); MEAN CORPUSCULAR HGB CONC 32.2 g/dl (31.0-37.0); MONO # 0.9 (0.1-0.6); MONO % 8.8 % (1.0-6.0); RBC 4.28 10^6/uL (3.5-6.1); RED CELL DISTRIBUTION WIDTH 15.3 % (11.5-14.5); WHITE BLOOD COUNT 10.5 10^3/ul (4.5-11.0)
[2017-10-16 06:59] LABS: BARBITURATES, UR NEGATIVE (NEGATIVE); BENZODIAZEPINES, UR NEGATIVE (NEGATIVE); OPIATES, UR NEGATIVE (NEGATIVE); PHENCYCLIDINE, UR NEGATIVE (NEGATIVE)
[2017-10-16 06:59] LABS: ALBUMIN 2.6 g/dL (3.0-4.8); ALT/SGPT 19 U/L (7-56); AST/SGOT 17 U/L (14-36); BLOOD UREA NITROGEN 9 mg/dL (7-21); CALCIUM 7.9 mg/dL (8.4-10.5); GFR AFRICAN-AMERICAN > 60; GFR NON-AFRICAN AMERICAN > 60; HDL CHOLESTEROL 46 mg/dL (29-60)
[2017-10-16 07:03] LABS: LDL CHOLESTEROL 79 mg/dL (0-129)
[2017-10-16 12:34] VITALS: BP 97/55; PULSE 69; RESP 16; TEMP 98.8
--- NOTE | 2017-10-16 13:24 | CP.PCM.DIS ---
<Gagan Leger L - Last Filed: 10/16/17 23:22> Provider - Provider Date of Admission: 10/15/17 15:53 Attending physician: Ney Hsu MD Primary care physician: Dr. Hewitt Consults: Dr. Laguna Time Spent in preparation of Discharge (in minutes): 45 Diagnosis - Discharge Diagnosis (1) Hypotension Status: Resolved Priority: High (2) Tonsillitis Status: Acute Priority: High (3) History of asthma Status: Chronic Priority: Medium (4) History of bipolar disorder Status: Chronic Priority: Medium (5) History of posttraumatic stress disorder (PTSD) Status: Chronic Priority: Medium (6) History of anxiety Status: Chronic Priority: Medium (7) History of depression Status: Chronic Priority: Medium Hospital Course - Lab Results Lab Results: Most Recent Lab Values WBC 10.5 10^3/ul (4.5-11.0) 10/16/17 06:00 RBC 4.28 10^6/uL (3.5-6.1) 10/16/17 06:00 Hgb 11.4 g/dL (12.0-16.0) L 10/16/17 06:00 Hct 35.4 % (36.0-48.0) L 10/16/17 06:00 MCV 82.7 fl (80.0-105.0) 10/16/17 06:00 MCH 26.6 pg (25.0-35.0) 10/16/17 06:00 MCHC 32.2 g/dl (31.0-37.0) 10/16/17 06:00 RDW 15.3 % (11.5-14.5) H 10/16/17 06:00 Plt Count 272 10^3/uL (120.0-450.0) 10/16/17 06:00 MPV 9.0 fl (7.0-11.0) 10/16/17 06:00 Gran % 56.3 % (50.0-68.0) 10/16/17 06:00 Lymph % (Auto) 32.4 % (22.0-35.0) 10/16/17 06:00 Banner % (Auto) 8.8 % (1.0-6.0) H 10/16/17 06:00 Eos % (Auto) 2.3 % (1.5-5.0) 10/16/17 06:00 Baso % (Auto) 0.2 % (0.0-3.0) 10/16/17 06:00 Gran # 5.89 (1.4-6.5) 10/16/17 06:00 Lymph # (Auto) 3.4 (1.2-3.4) 10/16/17 06:00 Banner # (Auto) 0.9 (0.1-0.6) H 10/16/17 06:00 Eos # (Auto) 0.2 (0.0-0.7) 10/16/17 06:00 Baso # (Auto) 0.02 K/mm3 (0.0-2.0) 10/16/17 06:00 PT 12.8 SECONDS (9.4-12.5) H 10/15/17 13:00 INR 1.11 (0.93-1.08) H 10/15/17 13:00 APTT 27.3 Seconds (25.1-36.5) 10/15/17 13:00 Sodium 141 mmol/L (132-148) 10/16/17 06:00 Potassium 4.1 mmol/L (3.6-5.0) 10/16/17 06:00 Chloride 111 mmol/L (98-107) H 10/16/17 06:00 Carbon Dioxide 25 mmol/L (21-33) 10/16/17 06:00 Anion Gap 9 (10-20) L 10/16/17 06:00 BUN 9 mg/dL (7-21) 10/16/17 06:00 Creatinine 0.6 mg/dl (0.7-1.2) L 10/16/17 06:00 Est GFR ( Amer) > 60 10/16/17 06:00 Est GFR (Non-Af Amer) > 60 10/16/17 06:00 Random Glucose 88 mg/dL (70-110) 10/16/17 06:00 Lactic Acid 0.8 mmol/L (0.7-2.1) 10/15/17 19:35 Calcium 7.9 mg/dL (8.4-10.5) L 10/16/17 06:00 Total Bilirubin < 0.1 mg/dL (0.2-1.3) L 10/16/17 06:00 AST 17 U/L (14-36) 10/16/17 06:00 ALT 19 U/L (7-56) 10/16/17 06:00 Alkaline Phosphatase 79 U/L (38-126) 10/16/17 06:00 Troponin I < 0.01 ng/mL 10/16/17 01:05 Total Protein 5.2 g/dL (5.8-8.3) L 10/16/17 06:00 Albumin 2.6 g/dL (3.0-4.8) L 10/16/17 06:00 Globulin 2.5 gm/dL 10/16/17 06:00 Albumin/Globulin Ratio 1.0 (1.1-1.8) L 10/16/17 06:00 Triglycerides 92 mg/dL (35-160) 10/16/17 06:00 Cholesterol 147 mg/dL (130-200) 10/16/17 06:00 LDL Cholesterol Direct 79 mg/dL (0-129) 10/16/17 06:00 HDL Cholesterol 46 mg/dL (29-60) 10/16/17 06:00 TSH 3rd Generation 1.21 mIU/mL (0.46-4.68) 10/16/17 06:00 Urine Color Yellow (YELLOW) 10/15/17 13:00 Urine Appearance Clear (CLEAR) 10/15/17 13:00 Urine pH 6.5 (4.7-8.0) 10/15/17 13:00 Ur Specific Ely 1.020 (1.005-1.035) 10/15/17 13:00 Urine Protein Trace mg/dL (<30 mg/dL) H 10/15/17 13:00 Urine Glucose (UA) Negative mg/dL (NEGATIVE) 10/15/17 13:00 Urine Ketones Negative mg/dL (NEGATIVE) 10/15/17 13:00 Urine Blood Negative (NEGATIVE) 10/15/17 13:00 Urine Nitrate Negative (NEGATIVE) 10/15/17 13:00 Urine Bilirubin Negative (NEGATIVE) 10/15/17 13:00 Urine Urobilinogen 1.0 E.U./dL (<1 E.U./dL) H 10/15/17 13:00 Ur Leukocyte Esterase Negative Parth/uL (NEGATIVE) 10/15/17 13:00 Urine RBC 0 - 2 /hpf (0-2) 10/15/17 13:00 Urine WBC 0 - 2 /hpf (0-6) 10/15/17 13:00 Ur Epithelial Cells 4 - 5 /hpf (0-5) 10/15/17 13:00 Urine Bacteria Mod (NEG) 10/15/17 13:00 Urine HCG, Qual Negative (NEGATIVE) 10/15/17 13:00 Urine Opiates Screen Negative (NEGATIVE) 10/16/17 05:35 Urine Methadone Screen Negative (NEGATIVE) 10/16/17 05:35 Ur Barbiturates Screen Negative (NEGATIVE) 10/16/17 05:35 Ur Phencyclidine Scrn Negative (NEGATIVE) 10/16/17 05:35 Ur Amphetamines Screen Negative (NEGATIVE) 10/16/17 05:35 U Benzodiazepines Scrn Negative (NEGATIVE) 10/16/17 05:35 U Oth Cocaine Metabols Negative (NEGATIVE) 10/16/17 05:35 U Cannabinoids Screen Negative (NEGATIVE) 10/16/17 05:35 - Hospital Course Hospital Course: 26 year old female with past medical history significant for Atrial Fibrillation s/p ablation (2014), hypotension, bipolar disorder, PTSD, anxiety and depression was sent by her PMD for hypotension. Patient was given one liter bolus of normal saline in ED with minimal response in BP. She was started on her home midodrine dose in addition to IVF. Patient also notes that she has been having chest pain. She was placed on telemetry. Cardiology was consulted. Serial troponins were negative. CXR showed no acute disease. EKG showed NSR without an ST or T wave abnormalities. ECHO showed EF of 58%. TSH was normal. Urine drug screen was negative. Patient was medically optimized for discharge and instructed to follow up with primary medical doctor and ticket seller within a week. She was also instructed to return to the ED if symptoms return or worsen. Discharge Exam - Head Exam Head Exam: ATRAUMATIC, NORMOCEPHALIC - Eye Exam Eye Exam: EOMI, Normal appearance Pupil Exam: NORMAL ACCOMODATION - ENT Exam ENT Exam: Mucous Membranes Moist, Normal External Ear Exam - Neck Exam Neck exam: Tenderness Additional comments: tender due to tonsillitis - Respiratory Exam Respiratory Exam: NORMAL BREATHING PATTERN. absent: Rales, Rhonchi, Wheezes - Cardiovascular Exam Cardiovascular Exam: REGULAR RHYTHM, +S1, +S2 - GI/Abdominal Exam GI & Abdominal Exam: Normal Bowel Sounds, Unremarkable. absent: Rebound, Rigid - Neurological Exam Neurological exam: Alert, CN II-XII Intact, Oriented x3 - Psychiatric Exam Psychiatric exam: Normal Affect, Normal Mood - Skin Skin Exam: Dry, Intact, Normal Color Discharge Plan - Discharge Medications Prescriptions: Amoxicillin/Clavulanate [Augmentin 875 MG-125 MG] 1 tab PO BID 7 Days tab - Follow Up Plan Condition: FAIR Disposition: HOME/ ROUTINE Patient education suggested?: Yes Instructions: Sore Throat in Adults, Low Blood Pressure Additional Instructions: Please take your medication augmentin as prescribed. Please follow up with Dr. Hewitt your primary medical doctor within 5-7 days. Please also follow up with Dr. Jones within 5-7 days. Please return to the ED if your symptoms return. Referrals: Magdalena Hewitt MD [Family Provider] - Timo Jones DO [Doctor [facility]] - <Ney Hsu - Last Filed: 10/17/17 15:33> Provider - Provider Date of Admission: 10/15/17 15:53 Attending physician: Ney Hsu MD Hospital Course - Lab Results Lab Results: Micro Results 10/15/17 16:25 Blood Blood Culture - Preliminary NO GROWTH AFTER 24 HOURS 10/15/17 16:00 Blood Blood Culture - Preliminary NO GROWTH AFTER 24 HOURS Most Recent Lab Values WBC 10.5 10^3/ul (4.5-11.0) 10/16/17 06:00 RBC 4.28 10^6/uL (3.5-6.1) 10/16/17 06:00 Hgb 11.4 g/dL (12.0-16.0) L 10/16/17 06:00 Hct 35.4 % (36.0-48.0) L 10/16/17 06:00 MCV 82.7 fl (80.0-105.0) 10/16/17 06:00 MCH 26.6 pg (25.0-35.0) 10/16/17 06:00 MCHC 32.2 g/dl (31.0-37.0) 10/16/17 06:00 RDW 15.3 % (11.5-14.5) H 10/16/17 06:00 Plt Count 272 10^3/uL (120.0-450.0) 10/16/17 06:00 MPV 9.0 fl (7.0-11.0) 10/16/17 06:00 Gran % 56.3 % (50.0-68.0) 10/16/17 06:00 Lymph % (Auto) 32.4 % (22.0-35.0) 10/16/17 06:00 Banner % (Auto) 8.8 % (1.0-6.0) H 10/16/17 06:00 Eos % (Auto) 2.3 % (1.5-5.0) 10/16/17 06:00 Baso % (Auto) 0.2 % (0.0-3.0) 10/16/17 06:00 Gran # 5.89 (1.4-6.5) 10/16/17 06:00 Lymph # (Auto) 3.4 (1.2-3.4) 10/16/17 06:00 Banner # (Auto) 0.9 (0.1-0.6) H 10/16/17 06:00 Eos # (Auto) 0.2 (0.0-0.7) 10/16/17 06:00 Baso # (Auto) 0.02 K/mm3 (0.0-2.0) 10/16/17 06:00 PT 12.8 SECONDS (9.4-12.5) H 10/15/17 13:00 INR 1.11 (0.93-1.08) H 10/15/17 13:00 APTT 27.3 Seconds (25.1-36.5) 10/15/17 13:00 Sodium 141 mmol/L (132-148) 10/16/17 06:00 Potassium 4.1 mmol/L (3.6-5.0) 10/16/17 06:00 Chloride 111 mmol/L (98-107) H 10/16/17 06:00 Carbon Dioxide 25 mmol/L (21-33) 10/16/17 06:00 Anion Gap 9 (10-20) L 10/16/17 06:00 BUN 9 mg/dL (7-21) 10/16/17 06:00 Creatinine 0.6 mg/dl (0.7-1.2) L 10/16/17 06:00 Est GFR ( Amer) > 60 10/16/17 06:00 Est GFR (Non-Af Amer) > 60 10/16/17 06:00 Random Glucose 88 mg/dL (70-110) 10/16/17 06:00 Lactic Acid 0.8 mmol/L (0.7-2.1) 10/15/17 19:35 Calcium 7.9 mg/dL (8.4-10.5) L 10/16/17 06:00 Total Bilirubin < 0.1 mg/dL (0.2-1.3) L 10/16/17 06:00 AST 17 U/L (14-36) 10/16/17 06:00 ALT 19 U/L (7-56) 10/16/17 06:00 Alkaline Phosphatase 79 U/L (38-126) 10/16/17 06:00 Troponin I < 0.01 ng/mL 10/16/17 01:05 Total Protein 5.2 g/dL (5.8-8.3) L 10/16/17 06:00 Albumin 2.6 g/dL (3.0-4.8) L 10/16/17 06:00 Globulin 2.5 gm/dL 10/16/17 06:00 Albumin/Globulin Ratio 1.0 (1.1-1.8) L 10/16/17 06:00 Triglycerides 92 mg/dL (35-160) 10/16/17 06:00 Cholesterol 147 mg/dL (130-200) 10/16/17 06:00 LDL Cholesterol Direct 79 mg/dL (0-129) 10/16/17 06:00 HDL Cholesterol 46 mg/dL (29-60) 10/16/17 06:00 TSH 3rd Generation 1.21 mIU/mL (0.46-4.68) 10/16/17 06:00 Urine Color Yellow (YELLOW) 10/15/17 13:00 Urine Appearance Clear (CLEAR) 10/15/17 13:00 Urine pH 6.5 (4.7-8.0) 10/15/17 13:00 Ur Specific Ely 1.020 (1.005-1.035) 10/15/17 13:00 Urine Protein Trace mg/dL (<30 mg/dL) H 10/15/17 13:00 Urine Glucose (UA) Negative mg/dL (NEGATIVE) 10/15/17 13:00 Urine Ketones Negative mg/dL (NEGATIVE) 10/15/17 13:00 Urine Blood Negative (NEGATIVE) 10/15/17 13:00 Urine Nitrate Negative (NEGATIVE) 10/15/17 13:00 Urine Bilirubin Negative (NEGATIVE) 10/15/17 13:00 Urine Urobilinogen 1.0 E.U./dL (<1 E.U./dL) H 10/15/17 13:00 Ur Leukocyte Esterase Negative Parth/uL (NEGATIVE) 10/15/17 13:00 Urine RBC 0 - 2 /hpf (0-2) 10/15/17 13:00 Urine WBC 0 - 2 /hpf (0-6) 10/15/17 13:00 Ur Epithelial Cells 4 - 5 /hpf (0-5) 10/15/17 13:00 Urine Bacteria Mod (NEG) 10/15/17 13:00 Urine HCG, Qual Negative (NEGATIVE) 10/15/17 13:00 Urine Opiates Screen Negative (NEGATIVE) 10/16/17 05:35 Urine Methadone Screen Negative (NEGATIVE) 10/16/17 05:35 Ur Barbiturates Screen Negative (NEGATIVE) 10/16/17 05:35 Ur Phencyclidine Scrn Negative (NEGATIVE) 10/16/17 05:35 Ur Amphetamines Screen Negative (NEGATIVE) 10/16/17 05:35 U Benzodiazepines Scrn Negative (NEGATIVE) 10/16/17 05:35 U Oth Cocaine Metabols Negative (NEGATIVE) 10/16/17 05:35 U Cannabinoids Screen Negative (NEGATIVE) 10/16/17 05:35 Attending/Attestation - Attestation I have personally seen and examined this patient.: Yes I have fully participated in the care of the patient.: Yes I have reviewed all pertinent clinical information, including history, physical exam and plan: Yes Notes (Text): 10/17/17 15:31 Attending note; Patient seen and examined with resident. Complaining of mild throat pain. Has mild right tonsillar erythema. Patient is a 26 year old female with the past medical history significant for Atrial Fibrillation s/p ablation (2015), hypotension, asthma, bipolar disorder, PTSD, anxiety and depression who presented from her PMD's office for hypotension. Currently patient is asymptomatic. Blood pressure improved after IV fluid resuscitation. Metoprolol stopped. Patient with a history of long-standing hypotension. Patient was prescribed Midodrine by her ticket seller. Tonsillitis; started on Augmentin. Chest discomfort;EKG showed normal sinus rhythm. Enzymes 3 negative . cardiology evaluation appreciated. Patient had cardiac cath in 2016 which was normal. Stress test scheduled for end october. Upon discharge patient will follow up with PMD Dr. Hewitt . Patient will follow-up with cardiology Dr. Jones.
--- NOTE | 2017-10-16 16:17 | CARD ---
APPROVED REPORT Date of service: 10/16/2017 EXAM: Two-dimensional and M-mode echocardiogram with Doppler and color Doppler. INDICATION Chest Pain 2D DIMENSIONS Left Atrium (2D)3.3 (1.6-4.0cm)IVSd0.8 (0.7-1.1cm) LVDd3.9 (3.9-5.9cm)PWd0.9 (0.7-1.1cm) LVDs2.7 (2.5-4.0cm)FS (%) 30.1 % LVEF (%)58.0 (>50%) M-Mode DIMENSIONS Aortic Root2.80 (2.2-3.7cm)Aortic Cusp Exc.1.80 (1.5-2.0cm) Aortic Valve AoV Peak Ftzstjvq384.0cm/Rick Peak GR.7mmHg Mitral Valve MV E Jmjbwcjx82.4cm/sMV A Tcgrcvic48.4cm/sE/A ratio1.9 TDI Lateral E' Peak V20.90cm/sMedial E' Peak V12.70cm/sE/Lateral E'4.2 E/Medial E'6.9 Pulmonary Valve PV Peak Hnkuaxnc27.7cm/sPV Peak Grad.2mmHg Tricuspid Valve TR Peak Fmbagwyy810xo/sRAP [id number] Peak Gr.24mmHg [id number] LEFT VENTRICLE The left ventricle is normal size. There is normal left ventricular wall thickness. The left ventricular function is normal. The left ventricular ejection fraction is within the normal range. There is normal LV segmental wall motion. The left ventricular diastolic function is normal. RIGHT VENTRICLE The right ventricle is normal size. There is normal right ventricular wall thickness. The right ventricular systolic function is normal. ATRIA The left atrium size is normal. The right atrium size is normal. AORTIC VALVE The aortic valve is normal in structure. No aortic regurgitation is present. There is no aortic valvular stenosis. MITRAL VALVE The mitral valve is normal in structure. There is no mitral valve regurgitation noted. There is no mitral valve stenosis. TRICUSPID VALVE The tricuspid valve is normal in structure. There is mild tricuspid regurgitation. There is mild pulmonary hypertension. GREAT VESSELS The aortic root is normal in size. The IVC is normal in size and collapses >50% with inspiration. PERICARDIAL EFFUSION Pericardium appears mildly thickened. <Conclusion> The left ventricle is normal size. There is normal left ventricular wall thickness. The left ventricular function is normal. The left ventricular ejection fraction is within the normal range. There is normal LV segmental wall motion. The left ventricular diastolic function is normal. There is mild tricuspid regurgitation. There is mild pulmonary hypertension. Pericardium appears mildly thickened.
--- NOTE | 2017-10-16 16:53 | CARD ---
APPROVED REPORT Date of service: 10/15/2017 EKG Measurement Heart [id number] <Conclusion> Normal sinus rhythm with sinus arrhythmia Normal ECG
== END 2017-10-16 14:22 | disposition home or self-care (01) ==
LOC: ED 12:03 → ERH 15:53 → 2RSO 18:24
PROVIDERS: ADMIT Internal Medicine; ATTEND Internal Medicine
DX: I95.9 Hypotension, unspecified (principal); J03.90 Acute tonsillitis, unspecified; F31.9 Bipolar disorder, unspecified; I48.91 Unspecified atrial fibrillation; J45.909 Unspecified asthma, uncomplicated; F43.10 Post-traumatic stress disorder, unspecified; F17.210 Nicotine dependence, cigarettes, uncomplicated
CPT/HCPCS: 36415; 71045; 80053; 80061; 80324; 80345; 80346; 80349; 80353; 80358; 80361; 81001; 83605; 83992; 84443; 84484; 84703; 85025; 85610; 85730; 87040; 93005; 93306; 96360; 99285; G0378; J7030

== ENCOUNTER 2017-10-23 09:00 | Emergency (ER) | payer OTHER ==
[2017-10-23 09:08] VITALS: BMI 30.8
[2017-10-23 09:12] VITALS: RESP 18
--- NOTE | 2017-10-23 09:41 | ED PDOC ---
Arrival/HPI - General Historian: Patient - History of Present Illness Time/Duration: Prior to Arrival Symptom Onset: Gradual Symptom Course: Improving - General Chief Complaint: Lower Extremity Problem/Injury Time Seen by Provider: 10/23/17 09:17 - History of Present Illness Narrative History of Present Illness (Text): 10/23/17 09:38 Patient is a 26 year old female with past medical history of atrial fibrillation s/p ablation (2014), bipolar disorder, asthma/bronchitis who presents to the ED for bilateral lower extremity swelling. Reports that she woke up and noticed her swelling had worsening and made it difficult for her to walk. Patient states that she was recently admitted and discharged from the hospital last week for hypotension. At that time she states she received two liters of fluid in the ED and another 1-2 liters of fluid on the floors. When discharged she noticed mild swelling of bilateral extremities. Denies any headaches, dizziness, cp, palpitations, sob, abdominal pain, urinary symptoms, changes in bowel habits, recent travel. Denies any increase in fluid intake or salt intake. 10/23/17 09:53 (Harika Cortez) Past Medical History - Provider Review Nursing Documentation Reviewed: Yes - Infectious Disease Hx of Infectious Diseases: None - Tetanus Immunization Tetanus Immunization: Unknown - Cardiac Hx Atrial Fibrillation: Yes (ablation) Other/Comment: Cardiac stent. Afib. loop recorder 2014 - Pulmonary Hx Asthma: Yes - Neurological Hx Neurological Disorder: Yes Hx Syncope: Yes - HEENT Hx HEENT Disorder: No - Renal Hx Renal Disorder: No - Endocrine/Metabolic Hx Endocrine Disorders: No - Hematological/Oncological Hx Blood Disorders: No - Integumentary Hx Dermatological Disorder: No - Musculoskeletal/Rheumatological Hx Back Pain: Yes Other/Comment: Sciatica - Gastrointestinal Hx Gastritis: Yes - Genitourinary/Gynecological Hx Genitourinary Disorders: No Other/Comment: Ovarian Cyst - Psychiatric Hx Anxiety: Yes Hx Bipolar Disorder: Yes Hx Depression: Yes Hx Post Traumatic Stress Disorder: Yes Hx Substance Use: No Other/Comment: Insomnia. PTSD. OCD - Surgical History Hx Cardiac Catheterization: Yes Hx Section: Yes (x3) Hx Coronary Stent: Yes Hx Tubal Ligation: Yes Other/Comment: etopic pregancy 2009. loop recorder placement 2014. loop recorder removal 2015 - Anesthesia Hx Anesthesia: Yes Hx Anesthesia Reactions: No Hx Malignant Hyperthermia: No - Suicidal Assessment Feels Threatened In Home Enviroment: No Family/Social History - Physician Review Nursing Documentation Reviewed: Yes Family/Social History: No Known Family HX Smoking Status: Heavy Smoker > 10 Cigarettes Daily Hx Alcohol Use: Yes (occasional) Hx Substance Use: No Hx Substance Use Treatment: No Allergies/Home Meds Allergies/Adverse Reactions: Allergies acetaminophen [From Tylenol] Allergy (Verified 10/23/17 09:12) URTICARIA aspirin Allergy (Verified 10/23/17 09:12) ANAPHYLAXIS banana Allergy (Verified 10/23/17 09:12) ANAPHYLAXIS ibuprofen [From Motrin] Allergy (Verified 10/23/17 09:12) URTICARIA latex Allergy (Verified 10/23/17 09:12) ANAPHYLAXIS surgical tape Allergy (Uncoded 10/23/17 09:12) URTICARIA Home Medications: Home Meds Medication Instructions Recorded Confirmed Acetaminophen/Butalbital/Caf 1 tab PO PRN PRN 10/15/17 10/15/17 [Fioricet] Albuterol 0.083% [Albuterol 0.083% 1 vial IH QID PRN 10/15/17 10/15/17 Inhal Josie (2.5 mg/3 ml) UD] Midodrine [Proamatine] 1 tab PO TID 10/15/17 10/15/17 Mirtazapine [Remeron] 1 tab PO HS 10/15/17 10/15/17 Risperidone [Risperdal] 1 tab PO DAILY 10/15/17 10/15/17 Sertraline [Zoloft] 1 tab PO BID PRN 10/15/17 10/15/17 traMADol [Ultram] 1 tab PO PRN PRN 10/15/17 10/15/17 traZODone [Desyrel] 1 tab PO HS 10/15/17 10/15/17 Review of Systems - Review of Systems Constitutional: Normal. absent: Fatigue, Weight Change Eyes: Normal. absent: Vision Changes ENT: Normal. absent: Hearing Changes Respiratory: Normal. absent: SOB, Cough, Wheezing Cardiovascular: Normal. absent: Chest Pain, Palpitations Gastrointestinal: Normal. absent: Abdominal Pain, Diarrhea, Nausea, Vomiting Genitourinary Female: Normal. absent: Dysuria, Frequency Skin: Normal. absent: Rash, Pruritis, Skin Lesions Neurological: Normal. absent: Headache, Dizziness Physical Exam Vital Signs Reviewed: Yes Appearance: Positive for: Well-Appearing, Comfortable Pain Distress: None Mental Status: Positive for: Alert and Oriented X 3 - Systems Exam Head: Present: Atraumatic, Normocephalic Pupils: Present: PERRL Extroacular Muscles: Present: EOMI Conjunctiva: Present: Normal Mouth: Present: Moist Mucous Membranes Neck: Present: Normal Range of Motion Respiratory/Chest: Present: Clear to Auscultation, Good Air Exchange. No: Respiratory Distress, Accessory Muscle Use Cardiovascular: Present: Regular Rate and Rhythm, Normal S1, S2. No: Murmurs Abdomen: Present: Normal Bowel Sounds. No: Tenderness, Distention Upper Extremity: Present: Normal Inspection, NORMAL PULSES. No: Cyanosis, Edema Lower Extremity: Present: Normal Inspection, NORMAL PULSES, Normal ROM, Neurovascularly Intact, Capillary Refill < 2 s, Other (Of note, patient showed a picture of her legs this morning prior to arrival and swelling was evident but has since resolved). No: CALF TENDERNESS, Cyanosis, Swelling Skin: Present: Warm, Dry, Normal Color Psychiatric: Present: Alert, Oriented x 3 Vital Signs Temp Pulse Resp BP Pulse Ox 10/23/17 10:04 98.1 F 85 18 99 10/23/17 09:58 85 18 96/57 L 100 10/23/17 09:08 99.0 F 105 H 18 93/59 L 97 Medical Decision Making ED Course and Treatment: 10/24/17 07:32 patient was seen for peripheral edema in the lower legs which essentially resolved from the time the patient woke up to ED presentation. Patient was just recently hospitalized and had received a large volume of IVF. Patient did have cardiopulmonary symptoms to suggest acute decomp CHF. Patient remained in stable condition during ED course. ([place]) Disposition/Present on Arrival - Present on Arrival Any Indicators Present on Arrival: No History of DVT/PE: No History of Uncontrolled Diabetes: No Urinary Catheter: No History of Decub. Ulcer: No History Surgical Site Infection Following: None - Disposition Have Diagnosis and Disposition been Completed?: Yes Disposition Time: 11:05 - Disposition Diagnosis: Peripheral edema Disposition: HOME/ ROUTINE Condition: STABLE Discharge Instructions (ExitCare): Dependent Edema (DC) Print Language: HEBREW Additional Instructions: return for any new or worsening symptoms. keep your legs elevated above the level of your heart at home when you resting. stay active. you may use a compression stocking if you notice swelling while being active. Referrals: Magdalena Hewitt MD [Primary Care Provider] - Follow up with primary Forms: [facility] ([place]), WORK NOTE
[2017-10-23 09:59] VITALS: BP 96/57; PULSE 85
[2017-10-23 10:05] VITALS: TEMP 98.1; O2SAT 99
== END 2017-10-23 10:05 | disposition home or self-care (01) ==
LOC: ED 09:00
DX: R60.0 Localized edema (principal)

== ENCOUNTER 2017-11-27 19:35 | Emergency (ER) | payer OTHER ==
[2017-11-27 19:35] VITALS: BMI 30.8
[2017-11-27] MEDS ORDERED: Sodium Chloride 0.9% 1,000 ML IV STA (20:00)
[2017-11-27] MEDS ORDERED: Morphine 2 mg/ml ISec IVP STA (20:00)
--- NOTE | 2017-11-27 20:34 | ED PDOC ---
Arrival/HPI - General Chief Complaint: Abdominal Pain Time Seen by Provider: 11/27/17 19:43 Historian: Patient - History of Present Illness Narrative History of Present Illness (Text): 11/27/17 19:59 27 year old female, with past medical history significant for Atrial Fibrillation s/p ablation (2014), hypotension, asthma, bipolar disorder, PTSD, anxiety and depression, presents to the Emergency Department complaining of nausea and decreased appetite since past week. Patient informs onset of right sided abdominal pain today prompting her to present to the Emergency Department or medical evaluation. Patient informs radiation of pain to right back associated with occasional nausea. Patient denies any history of trauma or fall. Patient denies any fever, chills, vomiting, diarrhea, chest pain, shortness of breath, cough, headache, dizziness, neck pain, back pain, urinary output changes, dysuria or any other complaints. Time/Duration: 1 week Symptom Onset: Gradual Symptom Course: Unchanged Quality: Aching Activities at Onset: Light Context: Home Past Medical History - Provider Review Nursing Documentation Reviewed: Yes - Infectious Disease Hx of Infectious Diseases: None - Tetanus Immunization Tetanus Immunization: Unknown - Cardiac Hx Cardiac Disorders: Yes Hx Atrial Fibrillation: Yes (ablation) Other/Comment: Cardiac stent. Afib. loop recorder 2015 - Pulmonary Hx Respiratory Disorders: Yes Hx Asthma: Yes - Neurological Hx Neurological Disorder: Yes Hx Syncope: Yes - HEENT Hx HEENT Disorder: No - Renal Hx Renal Disorder: No - Endocrine/Metabolic Hx Endocrine Disorders: No - Hematological/Oncological Hx Blood Disorders: No - Integumentary Hx Dermatological Disorder: No - Musculoskeletal/Rheumatological Hx Musculoskeletal Disorders: Yes Hx Back Pain: Yes Other/Comment: Sciatica - Gastrointestinal Hx Gastrointestinal Disorders: Yes Hx Gastritis: Yes - Genitourinary/Gynecological Hx Genitourinary Disorders: No Other/Comment: Ovarian Cyst - Psychiatric Hx Anxiety: Yes Hx Bipolar Disorder: Yes Hx Depression: Yes Hx Post Traumatic Stress Disorder: Yes Hx Substance Use: No Other/Comment: Insomnia. PTSD. OCD - Surgical History Hx Cardiac Catheterization: Yes Hx Section: Yes (x3) Hx Tubal Ligation: Yes Other/Comment: etopic pregancy 2009. loop recorder placement 2014. loop recorder removal 2016 - Anesthesia Hx Anesthesia: Yes Hx Anesthesia Reactions: No Hx Malignant Hyperthermia: No - Suicidal Assessment Feels Threatened In Home Enviroment: No Family/Social History - Physician Review Nursing Documentation Reviewed: Yes Family/Social History: No Known Family HX Smoking Status: Heavy Smoker > 10 Cigarettes Daily Hx Alcohol Use: Yes (occasional) Hx Substance Use: No Hx Substance Use Treatment: No Allergies/Home Meds Allergies/Adverse Reactions: Allergies acetaminophen [From Tylenol] Allergy (Verified 11/28/17 12:45) URTICARIA aspirin Allergy (Verified 11/28/17 12:45) ANAPHYLAXIS banana Allergy (Verified 11/28/17 12:45) ANAPHYLAXIS ibuprofen [From Motrin] Allergy (Verified 11/28/17 12:45) URTICARIA latex Allergy (Verified 11/28/17 12:45) ANAPHYLAXIS ondansetron [From Zofran] Allergy (Verified 11/28/17 12:45) URTICARIA surgical tape Allergy (Uncoded 11/28/17 12:45) URTICARIA Home Medications: Home Meds Medication Instructions Recorded Confirmed Albuterol 0.083% [Albuterol 0.083% 1 vial IH QID PRN 10/15/17 11/28/17 Inhal Josie (2.5 mg/3 ml) UD] Mirtazapine [Remeron] 1 tab PO HS 10/15/17 11/28/17 Risperidone [Risperdal] 1 tab PO DAILY 10/15/17 11/28/17 traZODone [Desyrel] 1 tab PO HS 10/15/17 11/28/17 Review of Systems - Physician Review All systems were reviewed & negative as marked: Yes - Review of Systems Constitutional: absent: Fevers Respiratory: absent: SOB, Cough Cardiovascular: absent: Chest Pain, Palpitations Gastrointestinal: Nausea. absent: Abdominal Pain, Diarrhea, Vomiting Musculoskeletal: absent: Back Pain, Neck Pain Neurological: absent: Headache, Dizziness Physical Exam Vital Signs Reviewed: Yes Vital Signs Temp Pulse Resp BP Pulse Ox 11/28/17 01:05 99 11/28/17 01:02 60 18 98/69 L 99 11/27/17 23:36 97.4 F L 55 L 18 103/70 100 11/27/17 20:18 98.4 F 18 101/57 L 100 Temperature: Afebrile Blood Pressure: Normal Pulse: Regular Respiratory Rate: Normal Appearance: Positive for: Well-Appearing, Non-Toxic, Comfortable Pain Distress: None Mental Status: Positive for: Alert and Oriented X 3 - Systems Exam Head: Present: Atraumatic, Normocephalic Pupils: Present: PERRL Extroacular Muscles: Present: EOMI Conjunctiva: Present: Normal Mouth: Present: Moist Mucous Membranes Neck: Present: Normal Range of Motion Respiratory/Chest: Present: Clear to Auscultation, Good Air Exchange. No: Respiratory Distress, Accessory Muscle Use Cardiovascular: Present: Regular Rate and Rhythm, Normal S1, S2. No: Murmurs Abdomen: Present: Tenderness ( palpable tenderness to right lower quadrant). 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 No: Vaginal Discharge, Adenexal Tenderness, Adenexal Mass, Cervical Motion Tendernes Back: Present: Normal Inspection. No: CVA Tenderness Upper Extremity: Present: Normal Inspection. No: Cyanosis, Edema Lower Extremity: Present: Normal Inspection. No: Edema Neurological: Present: GCS=15, CN II-XII Intact, Speech Normal Skin: Present: Warm, Dry, Normal Color. No: Rashes Psychiatric: Present: Alert, Oriented x 3, Normal Insight, Normal Concentration Medical Decision Making ED Course and Treatment: 11/27/17 19:57 Impression: 27 year old female presents to the Emergency Department complaining of nausea, decreased appetite and abdominal pain. Plan: -- CT of Abdomen/Pelvis -- Labs -- Morphine -- IV fluids -- Zofran -- Urinalysis -- Reassess and disposition Prior Visits: Notes and results from previous visits were reviewed. Progress Notes: CT Abdomen and Pelvis With Intravenous Contrast Dictated and Authenticated by: Chery Curtis MD 11/27/2017 10:58 PM Eastern Time ([place] & No) IMPRESSION: No imaging features to suggest acute appendicitis at this time. 11/27/17 23:30: Case discussed in detail with medical office assistant instructor and Dr. Rogers who accept patient to the hospitalist service for abdominal pain observation. - Lab Interpretations Lab Results: 11/27/17 20:30 11/27/17 20:30 Lab Results 11/27/17 20:30: Urine Color Yellow, Urine Appearance Sl cloudy, Urine pH 7.0, Ur Specific [place] 1.015, Urine Protein Negative, Urine Glucose (UA) Negative, Urine Ketones Negative, Urine Blood Small H, Urine Nitrate Negative, Urine Bilirubin Negative, Urine Urobilinogen 0.2, Ur Leukocyte Esterase Negative, Urine RBC 1 - 3, Urine WBC Negative, Ur Epithelial Cells 4 - 5, Urine HCG, Qual Negative 11/27/17 20:30: WBC 10.4, RBC 5.16, Hgb 13.9 D, Hct 42.2, MCV 81.8, MCH 26.9, MCHC 32.9, RDW 15.0 H, Plt Count 318, MPV 9.1 11/27/17 20:30: Sodium 144, Potassium 4.3, Chloride 108 H, Carbon Dioxide 25, Anion Gap 16, BUN 12, Creatinine 0.7, Est GFR ( Amer) > 60, Est GFR (Non- Af Amer) > 60, Random Glucose 63 L, Calcium 9.1, Total Bilirubin 0.5, AST 46 H D , ALT 25, Alkaline Phosphatase 118, Total Protein 7.6, Albumin 4.2, Globulin 3.3 , Albumin/Globulin Ratio 1.3, Lipase 71 - RAD Interpretation Radiology Orders: 11/27/17 19:59 ABD & PELVIS IV CONTRAST ONLY [CT] Stat - Medication Orders Current Medication Orders: Discontinued Medications Diphenhydramine HCl (Benadryl) 25 mg IVP ONCE ONE Stop: 11/27/17 21:03 Last Admin: 11/27/17 21:15 Dose: 25 mg IVP Administration Document 11/27/17 21:15 SF (Rec: 11[facility]27[facility]17 [facility]:15 [email or web address] Charges for Administration # of IVP Administrations 1 Sodium Chloride (Sodium Chloride 0.9%) 1,000 mls @ 999 mls/hr IV .Q1H1M STA Stop: 11/27/17 21:00 Last Admin: 11/27/17 20:37 Dose: 999 mls/hr eMAR Start Stop Document 11/27/17 20:37 SF (Rec: 11/27/17 20:37 [email or web address] Intravenous Solution Start Date 11/27/17 Start Time 20:37 End Date 11/27/17 End time 21:38 Total Infusion Time 61 Morphine Sulfate (Morphine) 2 mg IVP STAT STA Stop: 11/27/17 20:01 Ondansetron HCl (Zofran Inj) 4 mg IVP ONCE ONE Stop: 11/27/17 20:01 Last Admin: 11/27/17 20:38 Dose: 4 mg IVP Administration Document 11/27/17 20:38 SF (Rec: 11/27/17 20:38 [email or web address] Charges for Administration # of IVP Administrations 1 - Scribe Statement The provider has reviewed the documentation as recorded by the Scribe Jyoti Chun. All medical record entries made by the Scribe were at my direction and personally dictated by me. I have reviewed the chart and agree that the record accurately reflects my personal performance of the history, physical exam, medical decision making, and the department course for this patient. I have also personally directed, reviewed, and agree with the discharge instructions and disposition. Disposition/Present on Arrival - Present on Arrival Any Indicators Present on Arrival: No History of DVT/PE: No History of Uncontrolled Diabetes: No Urinary Catheter: No History of Decub. Ulcer: No History Surgical Site Infection Following: None - Disposition Have Diagnosis and Disposition been Completed?: Yes Diagnosis: Abdominal pain Disposition: HOSPITALIZED Disposition Time: 23:45 Condition: STABLE
[2017-11-27 20:39] VITALS: RESP 18
[2017-11-27 20:50] LABS: URINE BILIRUBIN NEGATIVE (NEGATIVE); URINE BLOOD SMALL (NEGATIVE); URINE GLUCOSE (UA) NEGATIVE (NEGATIVE); URINE LEUKOCYTE ESTERASE NEGATIVE Leu/uL (NEGATIVE); URINE PROTEIN NEGATIVE mg/dL (<30 mg/dL); URINE UROBILINOGEN 0.2 E.U./dL (<1 E.U./dL)
[2017-11-27 20:51] LABS: HEMOGLOBIN 13.9 g/dL (12.0-16.0); MEAN CELL VOLUME 81.8 fl (80.0-105.0); MEAN CORPUSCULAR HEMOGLOBIN 26.9 pg (25.0-35.0); MEAN CORPUSCULAR HGB CONC 32.9 g/dl (31.0-37.0); MEAN PLATELET VOLUME 9.1 fl (7.0-11.0); RBC 5.16 10^6/uL (3.5-6.1); WHITE BLOOD COUNT 10.4 10^3/ul (4.5-11.0)
[2017-11-27 20:52] LABS: URINE APPEARANCE SL CLOUDY (CLEAR); URINE COLOR YELLOW (YELLOW)
[2017-11-27 20:53] LABS: HCG,QUALITATIVE URINE NEGATIVE (NEGATIVE)
[2017-11-27 20:55] LABS: URINE WBC NEGATIVE /hpf (0-6)
[2017-11-27] MEDS ORDERED: DiphenhydrAMINE 50 mg/ml Inj IVP ONE (21:02)
[2017-11-27 21:07] LABS: ALB/GLOB RATIO 1.3 (1.1-1.8); ALBUMIN 4.2 g/dL (3.0-4.8); CALCIUM 9.1 mg/dL (8.4-10.5); GFR NON-AFRICAN AMERICAN > 60; LIPASE 71 U/L (23-300)
[2017-11-27 21:10] LABS: ALT/SGPT 25 U/L (7-56); AST/SGOT 46 U/L (14-36); BLOOD UREA NITROGEN 12 mg/dL (7-21)
[2017-11-27] MEDS ORDERED: DiphenhydrAMINE 50 mg/ml Inj ONE (21:10)
[2017-11-27 23:36] VITALS: TEMP 97.4
[2017-11-28 01:03] VITALS: BP 98/69; PULSE 60; O2SAT 99
--- NOTE | 2017-11-28 02:24 | CP.PCM.HP ---
<AlanisNiya - Last Filed: 11/28/17 03:08> History of Present Illness - History of Present Illness History of Present Illness: Niya Thapa, PGY-1, Internal Medicine History and Physical for Dr. Atkinson. CC: abdominal pain 27 year old with a past medical history of PCOS, endometriosis, atrial fibrillation s/p ablation (2014), hypotension, asthma, bipolar disorder, PTSD, anxiety, and depression presents with sharp RLQ, nonradiating, intermittent abdominal pain for 1 week. Patient reports it is worse today. Sharp pain started this morning. Patient has been having dull pain for 1 week. Patient denies every having this kind of abdominal pain in the past. Patient thought that dull pain was associated with her period, but pain has persisted after the cessation of her period. Pain is better with flexion and is worse with extension , coughing, and sneezing. Pain is not affected by consumption of food. Patient also reports vomiting innumerable times for once week since the onset of pain. Patient reports constipation. She reports she generally has 3-4 bowel movements a day but has had one bowel movement every other day recently. She does not report blood in the stool. She denies diarrhea, dysuria, hematuria. Patient denies chest pain, shortness of breath, numbness/tingling, headache, dizziness, weakness. 12-point ROS was negative except for what was listed above. LMP: November 23. Periods are normal with normal flow. PMH: as stated above PSH: 3 C sections, tubal ligation, cardiac catherization in 2013, cardiac ablation in 2014 for atrial fibrillation, loop recorder insertion and removal Allergies: tyleno, aspirin, banana, ibuprofen, latex, zofren FMHx: Maternal grandmother: [place], maternal grandfather: HTN, HLD, CAD, thyroid cancer, seizures, diabetes, asthma SHx: smoked 2 cigarettes a day. has smoked for 14 years. used to smoke 1 ppd. has occassional drinks. drinks 3-4 drinks every 2 months. Reports occassional marijuana use. 24 sexual partners in last year. 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 PMD: Dr. Hewitt Pharm: [facility] Insurance: [facility] Medicaid Present on Admission - Present on Admission Any Indicators Present on Admission: No History of DVT/PE: No History of Uncontrolled Diabetes: No Review of Systems - Constitutional Constitutional: absent: Anorexia, Chills, Fever, Headache - EENT Eyes: absent: Blurred Vision, Change in Vision Ears: absent: Ear Pain Nose/Mouth/Throat: absent: Dry Mouth - Cardiovascular Cardiovascular: absent: Chest Pain, Dyspnea - Respiratory Respiratory: absent: Cough, Dyspnea - Gastrointestinal Gastrointestinal: Abdominal Pain, Constipation, Nausea, Vomiting. absent: Diarrhea - Genitourinary Genitourinary: absent: Dysuria, Hematuria - Reproductive: Female Reproductive:Female: Normal Menses. absent: Dysmenorrhea, Dyspareunia - Menstruation Menstruation: Normal Menses - Musculoskeletal Musculoskeletal: absent: Arthralgias, Back Pain - Neurological Neurological: absent: Abnormal Gait, Numbness, Tingling, Weakness - Psychiatric Psychiatric: absent: Anxiety, Depression Past Patient History - Infectious Disease Hx of Infectious Diseases: None - Tetanus Immunizations Tetanus Immunization: Unknown - Past Medical History & Family History Past Medical History?: Yes - Past Social History Smoking Status: Heavy Smoker > 10 Cigarettes Daily - CARDIAC Hx Cardiac Disorders: Yes Hx Atrial Fibrillation: Yes (ablation) Other/Comment: Cardiac stent. Afib. loop recorder 2014 - PULMONARY Hx Respiratory Disorders: Yes Hx Asthma: Yes - NEUROLOGICAL Hx Neurological Disorder: Yes Hx Syncope: Yes - HEENT Hx HEENT Problems: No - RENAL Hx Chronic Kidney Disease: No - ENDOCRINE/METABOLIC Hx Endocrine Disorders: No - HEMATOLOGICAL/ONCOLOGICAL Hx Blood Disorders: No - INTEGUMENTARY Hx Dermatological Problems: No - MUSCULOSKELETAL/RHEUMATOLOGICAL Hx Musculoskeletal Disorders: Yes Hx Back Pain: Yes Other/Comment: Sciatica - GASTROINTESTINAL Hx Gastrointestinal Disorders: Yes Hx Gastritis: Yes - GENITOURINARY/GYNECOLOGICAL Hx Genitourinary Disorders: No Other/Comment: Ovarian Cyst - PSYCHIATRIC Hx Anxiety: Yes Hx Bipolar Disorder: Yes Hx Depression: Yes Hx Post Traumatic Stress Disorder: Yes Hx Substance Use: No Other/Comment: Insomnia. PTSD. OCD - SURGICAL HISTORY Hx Cardiac Catheterization: Yes Hx Section: Yes (x3) Hx Tubal Ligation: Yes Other/Comment: etopic pregancy 2009. loop recorder placement 2014. loop recorder removal 2016 - ANESTHESIA Hx Anesthesia: Yes Hx Anesthesia Reactions: No Hx Malignant Hyperthermia: No Meds Allergies/Adverse Reactions: Allergies Allergy/AdvReac Type Severity Reaction Status Date / Time acetaminophen [From Tylenol] Allergy URTICARIA Verified 11/27/17 19:49 aspirin Allergy ANAPHYLAXIS Verified 11/27/17 19:49 banana Allergy ANAPHYLAXIS Verified 11/27/17 19:49 ibuprofen [From Motrin] Allergy URTICARIA Verified 11/27/17 19:49 latex Allergy ANAPHYLAXIS Verified 11/27/17 19:49 ondansetron [From Zofran] Allergy URTICARIA Verified 11/27/17 21:11 surgical tape Allergy URTICARIA Uncoded 11/27/17 19:49 Physical Exam - Head Exam Head Exam: ATRAUMATIC, NORMOCEPHALIC - Eye Exam Eye Exam: EOMI - ENT Exam ENT Exam: Mucous Membranes Moist - Respiratory Exam Respiratory Exam: Clear to Auscultation Bilateral, NORMAL BREATHING PATTERN - Cardiovascular Exam Cardiovascular Exam: REGULAR RHYTHM, RRR - GI/Abdominal Exam GI & Abdominal Exam: Normal Bowel Sounds, Soft, Tenderness (diffuse. right lower quadrant was the worst) - Extremities Exam Extremities exam: Positive for: full ROM, normal inspection - Neurological Exam Neurological exam: CN II-XII Intact, Normal Gait, Oriented x3 - Psychiatric Exam Psychiatric exam: Normal Affect, Normal Mood - Skin Skin Exam: Dry, Intact, Normal Color Results - Vital Signs Recent Vital Signs: Last Vital Signs Temp 97.4 F L 11/27/17 23:36 Pulse 60 11/28/17 01:02 Resp 18 11/28/17 01:02 BP 98/69 L 11/28/17 01:02 Pulse Ox 99 11/28/17 01:05 - Labs Result Diagrams: 11/27/17 20:30 11/27/17 20:30 Assessment & Plan - Assessment and Plan (Free Text) Assessment: 27 year old with a past medical history of PCOS, endometriosis, atrial fibrillation s/p ablation (2014), hypotension, asthma, bipolar disorder, PTSD, anxiety, and depression presents with sharp RLQ, nonradiating, intermittent abdominal pain for 1 week. Patient was admitted for abdominal pain 2/2 to appendicitis vs. PID vs. ovarian cyst vs. endometriosis. Plan: Abdominal pain and vomiting 2/2 to appendicitis vs. PID vs. ovarian cyst vs. endometriosis -CT Abdomen with IV contrast: No imaging features to suggest acute appendicitis at this time. -Patient afebrile. -WBC: 10.4 -Patient was given morphine, diphenhydramine, 1L NS, and zofran in the ED. -Patient reports zofran improved the vomiting. Pain was still unrelenting. -No orders were placed for the patient because patient requested to leave AMA. Patient was explained the risks for leaving such as , irreparable harm, and worsening of her condition. Patient was able to repeat to me that she understood what I had explained to her. Patient signed the form to leave AMA. History of hypotension -Last BP: 98/67 -No orders were placed for the patient because patient requested to leave AMA. Patient was explained the risks for leaving such as , irreparable harm, and worsening of her condition. Patient was able to repeat to me that she understood what I had explained to her. Patient signed the form to leave AMA. Elevated AST -Mildly elevated at 46. ALT, ALP was normal. -No orders were placed for the patient because patient requested to leave AMA. Patient was explained the risks for leaving such as , irreparable harm, and worsening of her condition. Patient was able to repeat to me that she understood what I had explained to her. Patient signed the form to leave AMA. Hypoglycemia -Last random glucose: 63 -Patient denied symptoms of lethargy, diaphoresis, tachycardia. -No orders were placed for the patient because patient requested to leave AMA. Patient was explained the risks for leaving such as , irreparable harm, and worsening of her condition. Patient was able to repeat to me that she understood what I had explained to her. Patient signed the form to leave AMA. Disposition -No orders were placed for the patient because patient requested to leave AMA. Patient was explained the risks for leaving such as , irreparable harm, and worsening of her condition. Patient was able to repeat to me that she understood what I had explained to her. Patient signed the form to leave AMA. Patient plan was discussed with Dr. Atkinson. - Date & Time Date: 11/28/17 Time: 02:30 <Quin Atkinson - Last Filed: 11/28/17 05:44> Results - Vital Signs Recent Vital Signs: Last Vital Signs Temp 97.4 F L 11/27/17 23:36 Pulse 60 11/28/17 01:02 Resp 18 11/28/17 01:02 BP 98/69 L 11/28/17 01:02 Pulse Ox 99 11/28/17 01:05 - Labs Result Diagrams: 11/27/17 20:30 11/27/17 20:30 Attending/Attestation - Attestation I have personally seen and examined this patient.: No I have fully participated in the care of the patient.: No I have reviewed all pertinent clinical information: No Notes (Text): 11/28/17 05:44 Pt. left AMA before seen
--- NOTE | 2017-11-28 11:23 | CT ---
Date of service: 11/27/2017 PROCEDURE: CT Abdomen and Pelvis with contrast HISTORY: RLQ abdominal pain COMPARISON: None. TECHNIQUE: Contrast dose: 100 cc of Omni 350 Radiation dose: Total exam DLP = 487 mGy-cm. This CT exam was performed using one or more of the following dose reduction techniques: Automated exposure control, adjustment of the mA and/or kV according to patient size, and/or use of iterative reconstruction technique. FINDINGS: LOWER THORAX: Unremarkable. LIVER: Unremarkable. No gross lesion or ductal dilatation. GALLBLADDER AND BILE DUCTS: Unremarkable. PANCREAS: Unremarkable. No gross lesion or ductal dilatation. SPLEEN: Unremarkable. ADRENALS: Unremarkable. No mass. KIDNEYS AND URETERS: Unremarkable. No hydronephrosis. No solid mass. VASCULATURE: Unremarkable. No aortic aneurysm. BOWEL: Unremarkable. No obstruction. No gross mural thickening. APPENDIX: Normal appendix. PERITONEUM: Unremarkable. No free fluid. No free air. LYMPH NODES: Unremarkable. No enlarged lymph nodes. BLADDER: Unremarkable. REPRODUCTIVE: Unremarkable. BONES: No acute fracture. OTHER FINDINGS: None. IMPRESSION: No acute intra-abdominal findings
== END 2017-11-28 02:10 | disposition left against medical advice (07) ==
LOC: ED 19:35 → ERH 23:48 → UNDOADMOB 23:48 → ERH 11-28 00:33
DX: R10.9 Unspecified abdominal pain (principal); I48.91 Unspecified atrial fibrillation; Z95.5 Presence of coronary angioplasty implant and graft; Z98.51 Tubal ligation status
CPT/HCPCS: 74177; 80053; 81001; 83690; 84703; 85027; 96361; 96374; 96375; 99285; J1200; J2405; J7030

== ENCOUNTER 2017-11-28 11:31 | Observation (INO) | payer OTHER ==
--- NOTE | 2017-11-28 12:16 | ED PDOC ---
Arrival/HPI - General Historian: Patient - History of Present Illness Time/Duration: Other (8 days) Symptom Onset: Gradual Symptom Course: Worsening Activities at Onset: Light Context: Home <Tony Nieves - Last Filed: 11/28/17 22:15> <PastoraHarris - Last Filed: 12/02/17 18:08> - General Chief Complaint: Abdominal Pain Time Seen by Provider: 11/28/17 11:44 - History of Present Illness Narrative History of Present Illness (Text): 11/28/17 12:08 27 year old female, whose past medical history includes PCOS, endometriosis, atrial fibrillation s/p ablation (2014), hypotension, asthma, bipolar disorder, PTSD, anxiety, and depression presents to the emergency department complaining of right sided abdominal pain for the past 2 days associated with nausea for the past 8 days. Patient was in the ER yesterday and admitted, but signed out against medical advice. Patient states she returned due to worsening pain. She reportedly states she spoke to her PMD who stated he could not do anything for her, so she came in to the ER for evaluation. Patient denies any fever, chills, chest pain, shortness of breath, vomiting, diarrhea, urinary symptoms, neck pain , headache, dizziness, or any other complaints. (Tony Nieves) Past Medical History - Provider Review Nursing Documentation Reviewed: Yes - Infectious Disease Hx of Infectious Diseases: None - Tetanus Immunization Tetanus Immunization: Unknown - Cardiac Hx Cardiac Disorders: Yes Hx Atrial Fibrillation: Yes (ablation) Other/Comment: Afib. loop recorder 2014 - Pulmonary Hx Respiratory Disorders: Yes Hx Asthma: Yes - Neurological Hx Neurological Disorder: Yes Hx Syncope: Yes - HEENT Hx HEENT Disorder: No - Renal Hx Renal Disorder: No - Endocrine/Metabolic Hx Endocrine Disorders: No - Hematological/Oncological Hx Blood Disorders: No - Integumentary Hx Dermatological Disorder: No - Musculoskeletal/Rheumatological Hx Musculoskeletal Disorders: Yes Hx Back Pain: Yes Other/Comment: Sciatica - Gastrointestinal Hx Gastrointestinal Disorders: Yes Hx Gastritis: Yes Hx Vomiting: Yes - Genitourinary/Gynecological Hx Genitourinary Disorders: Yes Other/Comment: Ovarian Cyst - Psychiatric Hx Psychophysiologic Disorder: Yes Hx Anxiety: Yes Hx Bipolar Disorder: Yes Hx Depression: Yes Hx Post Traumatic Stress Disorder: Yes Hx Substance Use: No Other/Comment: Insomnia. PTSD. OCD - Surgical History Hx Cardiac Catheterization: Yes Hx Section: Yes (x3) Hx Tubal Ligation: Yes Other/Comment: etopic pregancy 2009. loop recorder placement 2014. loop recorder removal 2016 - Anesthesia Hx Anesthesia: Yes Hx Anesthesia Reactions: No Hx Malignant Hyperthermia: No - Suicidal Assessment Feels Threatened In Home Enviroment: No <Diru,Happiness A - Last Filed: 11/28/17 22:15> Family/Social History - Physician Review Nursing Documentation Reviewed: Yes Family/Social History: No Known Family HX Smoking Status: Heavy Smoker > 10 Cigarettes Daily Hx Alcohol Use: Yes (occasional) Hx Substance Use: No Hx Substance Use Treatment: No <Diru,Happiness A - Last Filed: 11/28/17 22:15> Allergies/Home Meds <Diru,Happiness A - Last Filed: 11/28/17 22:15> <Bosompem,Harris - Last Filed: 12/02/17 18:08> Allergies/Adverse Reactions: Allergies acetaminophen [From Tylenol] Allergy (Verified 11/28/17 12:45) URTICARIA aspirin Allergy (Verified 11/28/17 12:45) ANAPHYLAXIS banana Allergy (Verified 11/28/17 12:45) ANAPHYLAXIS ibuprofen [From Motrin] Allergy (Verified 11/28/17 12:45) URTICARIA latex Allergy (Verified 11/28/17 12:45) ANAPHYLAXIS ondansetron [From Zofran] Allergy (Verified 11/28/17 12:45) URTICARIA surgical tape Allergy (Uncoded 11/28/17 12:45) URTICARIA Home Medications: Home Meds Medication Instructions Recorded Confirmed Albuterol 0.083% [Albuterol 0.083% 1 vial IH QID PRN 10/15/17 11/28/17 Inhal Josie (2.5 mg/3 ml) UD] Mirtazapine [Remeron] 1 tab PO HS 10/15/17 11/28/17 Risperidone [Risperdal] 1 tab PO DAILY 10/15/17 11/28/17 traZODone [Desyrel] 1 tab PO HS 10/15/17 11/28/17 Review of Systems - Physician Review All systems were reviewed & negative as marked: Yes - Review of Systems Constitutional: absent: Fevers, Other (Chills) Respiratory: absent: SOB Cardiovascular: absent: Chest Pain Gastrointestinal: Abdominal Pain (right sided abdominal pain), Nausea. absent: Diarrhea, Vomiting Genitourinary Female: absent: Dysuria, Frequency, Hematuria Musculoskeletal: absent: Neck Pain Neurological: absent: Headache, Dizziness <DiruHappiness A - Last Filed: 11/28/17 22:15> Physical Exam Vital Signs Reviewed: Yes Temperature: Afebrile Blood Pressure: Normal Pulse: Regular Respiratory Rate: Normal Appearance: Positive for: Well-Appearing, Non-Toxic, Comfortable Pain Distress: None Mental Status: Positive for: Alert and Oriented X 3 - Systems Exam Head: Present: Atraumatic, Normocephalic Pupils: Present: PERRL Extroacular Muscles: Present: EOMI Conjunctiva: Present: Normal Mouth: Present: Moist Mucous Membranes Neck: Present: Normal Range of Motion Respiratory/Chest: Present: Clear to Auscultation, Good Air Exchange. No: Respiratory Distress, Accessory Muscle Use Cardiovascular: Present: Regular Rate and Rhythm, Normal S1, S2. No: Murmurs Abdomen: Present: Tenderness (Lower quadreant tenderness). No: Distention, Peritoneal Signs, Rebound, Guarding Back: Present: Normal Inspection Upper Extremity: Present: Normal Inspection. No: Cyanosis, Edema Lower Extremity: Present: Normal Inspection. No: Edema Neurological: Present: GCS=15, CN II-XII Intact, Speech Normal Skin: Present: Warm, Dry, Normal Color. No: Rashes Psychiatric: Present: Alert, Oriented x 3, Normal Insight, Normal Concentration <uHappiness A - Last Filed: 11/28/17 22:15> Vital Signs Temp Pulse Resp BP Pulse Ox 11/28/17 14:00 98.0 F 19 99 11/28/17 12:40 98.0 F 80 17 109/88 99 11/28/17 11:40 98.6 F 76 18 103/70 97 Medical Decision Making - Lab Interpretations I have reviewed the lab results: Yes <LizbethHappiness A - Last Filed: 11/28/17 22:15> <Harris Guillory - Last Filed: 12/02/17 18:08> ED Course and Treatment: 11/28/17 12:08 Impression: 27 year old female presents complaining of worsening right sided abdominal pain for the past 2 days associated with nausea for the past 8 days. Patient was admitted yesterday but signed out against medical advice. Plan: -- Labs -- Pepcid, Reglan -- Urinalysis -- Reassess and disposition Prior Visits: Notes and results from previous visits were reviewed. Patient was last seen in the emergency department on 11/27/17 presents complaining of nausea and decreased appetite since past week associated with right sided abdominal pain the began today. Patient was admitted. Progress Notes: PROCEDURE: CT Abdomen and Pelvis with contrast Dictator : Dean Simeon MD Report Date : 11/28/2017 11:20:27 IMPRESSION: No acute intra-abdominal findings 11/28/17 12:[address] Villalpando who is aware and agrees with the plan. Accepts patient into hospitalist service for intractable abdominal pain. (Tony Nieves) - Medication Orders Current Medication Orders: Discontinued Medications Dicyclomine HCl (Bentyl) 10 mg PO QID [facility] Last Admin: 11/29/17 10:03 Dose: 10 mg Diphenhydramine HCl (Benadryl) 25 mg PO ONCE ONE Stop: 11/29/17 10:37 Last Admin: 11/29/17 10:43 Dose: 25 mg Docusate Sodium (Colace) 100 mg PO BID DAVID Last Admin: 11/29/17 10:04 Dose: 100 mg Famotidine (Pepcid) 20 mg IVP STAT STA Stop: 11/28/17 11:55 Last Admin: 11/28/17 13:27 Dose: 20 mg IVP Administration Document 11/28/17 13:27 [email or web address] (Rec: 11/28/17 13:28 [email or web address] [id number]) Charges for Administration # of IVP Administrations 1 Sodium Chloride (Sodium Chloride 0.9%) 1,000 mls @ 100 mls/hr IV .Q10H DAVID Metoclopramide HCl (Reglan) 10 mg IVP STAT STA Stop: 11/28/17 11:54 Last Admin: 11/28/17 13:28 Dose: 10 mg IVP Administration Document 11/28/17 13:28 [email or web address] (Rec: 11/28/17 13:28 [email or web address] [id number]) Charges for Administration # of IVP Administrations 1 Metoclopramide HCl (Reglan) 10 mg IVP Q6H PRN PRN Reason: Nausea/Vomiting Last Admin: 11/29/17 10:24 Dose: 10 mg IVP Administration Document 11/29/17 10:24 CV (Rec: 11/29/17 10:24 CV [id number]) Charges for Administration # of IVP Administrations 1 Pantoprazole Sodium (Protonix Ec Tab) 40 mg PO DAILY [facility] Last Admin: 11/29/17 14:07 Dose: 40 mg Pneumococcal Polyvalent Vaccine (Pneumovax 23 Vaccine) 0.5 ml IM .ONCE ONE Stop: 11/28/17 20:30 Polyethylene Glycol (Miralax) 17 gm PO DAILY [facility] Last Admin: 11/29/17 10:04 Dose: 17 gm - Scribe Statement The provider has reviewed the documentation as recorded by the Scribe <Tony Nieves - Last Filed: 11/28/17 22:15> - PA / EVALUATION ASSISTANT / Resident Statement / has reviewed & agrees with the documentation as recorded. / has examined the patient and agrees with the treatment plan. <Harris Guillory - Last Filed: 12/02/17 18:08> - Scribe Statement Nasra Amaya Provider Scribe Attestation: All medical record entries made by the Scribe were at my direction and personally dictated by me. I have reviewed the chart and agree that the record accurately reflects my personal performance of the history, physical exam, medical decision making, and the department course for this patient. I have also personally directed, reviewed, and agree with the discharge instructions and disposition. (Tony Nieves) Disposition/Present on Arrival - Present on Arrival Any Indicators Present on Arrival: No History of DVT/PE: No History of Uncontrolled Diabetes: No Urinary Catheter: No History of Decub. Ulcer: No History Surgical Site Infection Following: None - Disposition Have Diagnosis and Disposition been Completed?: Yes Disposition Time: 12:15 Patient Plan: Admission <Tony Nieves - Last Filed: 11/28/17 22:15> <Harris Guillory - Last Filed: 12/02/17 18:08> - Disposition Diagnosis: Intractable abdominal pain Disposition: HOSPITALIZED Condition: STABLE
[2017-11-28 12:58] LABS: BASO # 0.02 K/mm3 (0.0-2.0); BASO % 0.3 % (0.0-3.0); EOS # 0.2 (0.0-0.7); EOS % 2.6 % (1.5-5.0); GRAN # 4.89 (1.4-6.5); GRAN % 63.5 % (50.0-68.0); HEMOGLOBIN 11.9 g/dL (12.0-16.0); LYMPH # 2.1 (1.2-3.4); LYMPH % 26.7 % (22.0-35.0); MEAN CELL VOLUME 81.8 fl (80.0-105.0); MEAN CORPUSCULAR HEMOGLOBIN 26.4 pg (25.0-35.0); MEAN CORPUSCULAR HGB CONC 32.3 g/dl (31.0-37.0); MEAN PLATELET VOLUME 9.9 fl (7.0-11.0); MONO # 0.5 (0.1-0.6); MONO % 6.9 % (1.0-6.0); RBC 4.5 10^6/uL (3.5-6.1); RED CELL DISTRIBUTION WIDTH 15.2 % (11.5-14.5); WHITE BLOOD COUNT 7.7 10^3/ul (4.5-11.0)
[2017-11-28 13:03] LABS: INR 1.04; PARTIAL THROMBOPLASTIN TIME 24.9 Seconds (25.1-36.5); PROTHROMBIN TIME 11.9 SECONDS (9.4-12.5)
[2017-11-28 13:05] LABS: ALB/GLOB RATIO 1.3 (1.1-1.8); ALBUMIN 3.5 g/dL (3.0-4.8); ALT/SGPT 22 U/L (7-56); AST/SGOT 18 U/L (14-36); BLOOD UREA NITROGEN 9 mg/dL (7-21); GFR NON-AFRICAN AMERICAN > 60; LIPASE 68 U/L (23-300)
[2017-11-28 13:38] LABS: PH,URINE 6.5 (4.7-8.0); URINE APPEARANCE SL CLOUDY (CLEAR); URINE BILIRUBIN NEGATIVE (NEGATIVE); URINE BLOOD MODERATE (NEGATIVE); URINE COLOR YELLOW (YELLOW); URINE GLUCOSE (UA) NEGATIVE (NEGATIVE); URINE LEUKOCYTE ESTERASE NEGATIVE Leu/uL (NEGATIVE); URINE PROTEIN NEGATIVE mg/dL (<30 mg/dL); URINE UROBILINOGEN 0.2 E.U./dL (<1 E.U./dL)
--- NOTE | 2017-11-28 13:51 | CP.PCM.HP ---
<Mike Don - Last Filed: 11/28/17 14:10> History of Present Illness - History of Present Illness History of Present Illness: Mike Don D.O PGY-1, Internal Medicine H & P for Dr. Hsu CC: abdominal pain 27 year old with a past medical history of PCOS, endometriosis, atrial fibrillation s/p ablation (2014), hypotension, IBS, asthma, bipolar disorder, PTSD, anxiety, and depression presenting with right lower quadrant pain that started 2 days ago. She describes the pain as sharp, non-radiating, intermittent , and has gotten worst yesterday. Patient came to the ED yesterday and was admitted but left AMA. Patient called her PMD today and was told to return to the ED. Patient denies ever having this kind of abdominal pain in the past. Patient thought that dull pain was associated with her period, but pain has persisted after the cessation of her period. Pain is better with flexion and is worse with extension, coughing, and sneezing. Pain is not affected by consumption of food. Patient also reports vomiting innumerable times for one week since the onset of pain and also reports of constipation. She reports she generally has 3-4 bowel movements a day but has had one bowel movement every other day recently. Her last bowel movement was 3 days ago. She does not report blood in the stool. Patient denies chest pain, shortness of breath, diarrhea, dysuria, hematuria, numbness/tingling, headache, dizziness, weakness. 12-point ROS was negative except for what was listed above. PMH: as stated above PSH: 3 C-sections, tubal ligation, cardiac catherization in 2013, cardiac ablation in 2014 for atrial fibrillation, loop recorder insertion and removal OB Hx: LMP: November 23. Periods are normal with normal flow. , 2x abortions and 1 x miscarriage. Allergies: tylenol, aspirin, banana, ibuprofen, latex, zofran FMHx: Maternal grandmother: [place], maternal grandfather: HTN, HLD, CAD, thyroid cancer, seizures, diabetes, asthma SHx: smoked 2 cigarettes a day, has smoked for 14 years. used to smoke 1 ppd. has occasional drinks, drinks 3-4 drinks every 2 months. Reports occasional marijuana use. Currently having sexual intercourse only with boyfriend without protection, 24 sexual partners in her lifetime. Reports history of HPV but no other STD's. Patient works at [employer], lives at home with boyfriend and boyfriend's mother. PMD: Dr. Hewitt [employer]: Dr. Jones Psychiatrist: Dr. Wilburn Ob-Mail Room: Dr. Boyce Neurologist: Dr. Fortune Pharm: Ryan Amaya Insurance: [facility] Medicaid Present on Admission - Present on Admission Any Indicators Present on Admission: No History of DVT/PE: No History of Uncontrolled Diabetes: No Urinary Catheter: No Decubitus Ulcer Present: No Past Patient History - Infectious Disease Hx of Infectious Diseases: None - Tetanus Immunizations Tetanus Immunization: Unknown - Past Medical History & Family History Past Medical History?: Yes - Past Social History Smoking Status: Heavy Smoker > 10 Cigarettes Daily - CARDIAC Hx Cardiac Disorders: Yes Hx Atrial Fibrillation: Yes (ablation) Other/Comment: Afib. loop recorder 2014 - PULMONARY Hx Respiratory Disorders: Yes Hx Asthma: Yes - NEUROLOGICAL Hx Neurological Disorder: Yes Hx Syncope: Yes - HEENT Hx HEENT Problems: No - RENAL Hx Chronic Kidney Disease: No - ENDOCRINE/METABOLIC Hx Endocrine Disorders: No - HEMATOLOGICAL/ONCOLOGICAL Hx Blood Disorders: No - INTEGUMENTARY Hx Dermatological Problems: No - MUSCULOSKELETAL/RHEUMATOLOGICAL Hx Musculoskeletal Disorders: Yes Hx Back Pain: Yes Other/Comment: Sciatica - GASTROINTESTINAL Hx Gastrointestinal Disorders: Yes Hx Gastritis: Yes Hx Vomiting: Yes - GENITOURINARY/GYNECOLOGICAL Hx Genitourinary Disorders: Yes Other/Comment: Ovarian Cyst - PSYCHIATRIC Hx Psychophysiologic Disorder: Yes Hx Anxiety: Yes Hx Bipolar Disorder: Yes Hx Depression: Yes Hx Post Traumatic Stress Disorder: Yes Hx Substance Use: No Other/Comment: Insomnia. PTSD. OCD - SURGICAL HISTORY Hx Cardiac Catheterization: Yes Hx Section: Yes (x3) Hx Tubal Ligation: Yes Other/Comment: etopic pregancy 2009. loop recorder placement 2014. loop recorder removal 2016 - ANESTHESIA Hx Anesthesia: Yes Hx Anesthesia Reactions: No Hx Malignant Hyperthermia: No Meds Home Medications: Home Medication List Medication Instructions Recorded Confirmed Type Docusate [Colace] 100 mg PO BID #6 cap 11/29/17 Rx Allergies/Adverse Reactions: Allergies Allergy/AdvReac Type Severity Reaction Status Date / Time acetaminophen [From Tylenol] Allergy URTICARIA Verified 11/28/17 12:45 aspirin Allergy ANAPHYLAXIS Verified 11/28/17 12:45 banana Allergy ANAPHYLAXIS Verified 11/28/17 12:45 ibuprofen [From Motrin] Allergy URTICARIA Verified 11/28/17 12:45 latex Allergy ANAPHYLAXIS Verified 11/28/17 12:45 ondansetron [From Zofran] Allergy URTICARIA Verified 11/28/17 12:45 surgical tape Allergy URTICARIA Uncoded 11/28/17 12:45 Physical Exam - Constitutional Appears: No Acute Distress - Head Exam Head Exam: ATRAUMATIC, NORMAL INSPECTION - Eye Exam Eye Exam: Normal appearance, PERRL - ENT Exam ENT Exam: Mucous Membranes Moist - Neck Exam Neck exam: Positive for: Normal Inspection - Respiratory Exam Respiratory Exam: Clear to Auscultation Bilateral. absent: Rales, Rhonchi, Wheezes, Respiratory Distress - Cardiovascular Exam Cardiovascular Exam: REGULAR RHYTHM, +S1, +S2. absent: Gallop, Rubs, Systolic Murmur - GI/Abdominal Exam GI & Abdominal Exam: Normal Bowel Sounds, Soft, Tenderness Additional comments: RLQ tender to palpation - Extremities Exam Extremities exam: Positive for: normal inspection. Negative for: calf tenderness, pedal edema - Neurological Exam Neurological exam: Alert, CN II-XII Intact, Oriented x3 - Psychiatric Exam Psychiatric exam: Normal Affect, Normal Mood - Skin Skin Exam: Dry, Intact, Normal Color, Warm Results - Vital Signs Recent Vital Signs: Last Vital Signs Temp 98.6 F 11/28/17 11:40 Pulse 76 11/28/17 11:40 Resp 18 11/28/17 11:40 BP 103/70 11/28/17 11:40 Pulse Ox 97 11/28/17 11:40 - Labs Result Diagrams: 11/28/17 12:40 11/28/17 12:40 Labs: Laboratory Results - last 24 hr 11/28/17 11/28/17 11/28/17 12:40 12:40 12:40 WBC 7.7 D RBC 4.50 Hgb 11.9 L D Hct 36.8 MCV 81.8 MCH 26.4 MCHC 32.3 RDW 15.2 H Plt Count 322 MPV 9.9 Gran % 63.5 Lymph % (Auto) 26.7 Mccone % (Auto) 6.9 H Eos % (Auto) 2.6 Baso % (Auto) 0.3 Gran # 4.89 Lymph # (Auto) 2.1 Mccone # (Auto) 0.5 Eos # (Auto) 0.2 Baso # (Auto) 0.02 PT 11.9 INR 1.04 APTT 24.9 L Sodium 144 Potassium 4.6 Chloride 107 Carbon Dioxide 27 Anion Gap 14 BUN 9 Creatinine 0.6 L Est GFR ( Amer) > 60 Est GFR (Non-Af Amer) > 60 Random Glucose 84 Calcium 9.0 Magnesium 1.8 Total Bilirubin 0.4 AST 18 ALT 22 Alkaline Phosphatase 88 Total Protein 6.3 Albumin 3.5 Globulin 2.7 Albumin/Globulin Ratio 1.3 Lipase 68 Urine Color Urine Appearance Urine pH Ur Specific [place] Urine Protein Urine Glucose (UA) Urine Ketones Urine Blood Urine Nitrate Urine Bilirubin Urine Urobilinogen Ur Leukocyte Esterase 11/28/17 13:20 WBC RBC Hgb Hct MCV MCH MCHC RDW Plt Count MPV Gran % Lymph % (Auto) Mccone % (Auto) Eos % (Auto) Baso % (Auto) Gran # Lymph # (Auto) Mccone # (Auto) Eos # (Auto) Baso # (Auto) PT INR APTT Sodium Potassium Chloride Carbon Dioxide Anion Gap BUN Creatinine Est GFR ( Amer) Est GFR (Non-Af Amer) Random Glucose Calcium Magnesium Total Bilirubin AST ALT Alkaline Phosphatase Total Protein Albumin Globulin Albumin/Globulin Ratio Lipase Urine Color Yellow Urine Appearance Sl cloudy Urine pH 6.5 Ur Specific [place] 1.010 Urine Protein Negative Urine Glucose (UA) Negative Urine Ketones Negative Urine Blood Moderate H Urine Nitrate Negative Urine Bilirubin Negative Urine Urobilinogen 0.2 Ur Leukocyte Esterase Negative Assessment & Plan - Assessment and Plan (Free Text) Assessment: 27 year old with a past medical history of PCOS, endometriosis, atrial fibrillation s/p ablation (2014), hypotension, IBS, asthma, bipolar disorder, PTSD, anxiety, and depression presenting with right lower quadrant pain that started 2 days ago. Plan: Abdominal pain and vomiting 2/2 to appendicitis vs. PID vs. ovarian cyst vs. endometriosis - CT Abdomen with IV contrast: No imaging features to suggest acute appendicitis at this time. - Patient afebrile. - WBC: 7.7 - GI consulted, Dr. Dee - Started Dicyclomine 10mg PO QID - Started Colace and Miralax - Metoclopramide 10mg IV Q6 PRN- Nausea, patient is allergic to Zofran - Patient on liquid diet - IVF: NS @ 100 mLs/hr - UDS: pending History of hypotension - Last BP: 103/70 - Will continue to monitor History of depression, anxiety, PTSD, bipolar disorder - Will verify with pharmacy and her psychiatrist- hold home medications for now - Patient refused to see psychiatry here GI prophylaxis: Protonix Patient case reviewed with and plan approved by attending physician, Dr. Hsu - Date & Time Date: 11/28/17 Time: 14:25 <Ney Hsu - Last Filed: 11/29/17 17:44> Results - Vital Signs Recent Vital Signs: Last Vital Signs Temp 97.8 F 11/29/17 06:00 Pulse 65 11/29/17 06:00 Resp 20 11/29/17 06:00 BP 94/56 L 11/29/17 06:00 Pulse Ox 100 11/29/17 06:00 - Labs Result Diagrams: 11/29/17 06:00 11/29/17 06:00 Labs: Laboratory Results - last 24 hr 11/29/17 11/29/17 11/29/17 06:00 06:00 06:30 WBC 9.4 D RBC 4.79 Hgb 12.8 Hct 39.2 MCV 81.8 MCH 26.7 MCHC 32.7 RDW 15.1 H Plt Count 286 MPV 9.4 Gran % 53.1 Lymph % (Auto) 36.9 H Mccone % (Auto) 7.2 H Eos % (Auto) 2.5 Baso % (Auto) 0.3 Gran # 5.00 Lymph # (Auto) 3.5 H Mccone # (Auto) 0.7 H Eos # (Auto) 0.2 Baso # (Auto) 0.03 Sodium 143 Potassium 3.9 Chloride 108 H Carbon Dioxide 26 Anion Gap 13 BUN 8 Creatinine 0.7 Est GFR ( Amer) > 60 Est GFR (Non-Af Amer) > 60 Random Glucose 76 Calcium 8.9 Total Bilirubin 0.4 AST 21 ALT 17 Alkaline Phosphatase 90 Total Protein 6.4 Albumin 3.4 Globulin 3.0 Albumin/Globulin Ratio 1.1 Urine Opiates Screen Negative Urine Methadone Screen Negative Ur Barbiturates Screen Negative Ur Phencyclidine Scrn Negative Ur Amphetamines Screen Negative U Benzodiazepines Scrn Negative U Oth Cocaine Metabols Negative U Cannabinoids Screen Negative Attending/Attestation - Attestation I have personally seen and examined this patient.: Yes I have fully participated in the care of the patient.: Yes I have reviewed all pertinent clinical information: Yes Notes (Text): 11/29/17 17:40 Attending note; Patient seen and examined with resident in ER. Patient is alert and awake. Complaining of abdominal pain and spasm on and off. Patient also complaining of nausea and vomiting. Patient is a 27-year-old female with a past medical history of PCOS, endometriosis, atrial fibrillation s/p ablation (2014), hypotension, IBS, asthma , bipolar disorder, PTSD, anxiety, and depression presenting with right lower quadrant pain that started 2 days ago. Patient also complaining of constipation. Patient was initially admitted yesterday and she signed AMA. Came back admitted with abdominal pain and constipation. Patient gives a history of irritable bowel syndrome constipation predominant type. Started the patient on IV fluids. Continue Zofran for nausea. Started on Colace and MiraLAX. GI evaluation requested. Opiate seeking behavior; patient is strongly advised to avoid opiates to minimize the risk of constipation. Patient will be monitored closely. Upon discharge the patient will follow-up with PMD Dr. Hewitt. 11/29/17 17:44
[2017-11-28 13:56] LABS: URINE BACTERIA FEW (NEG); URINE RBC 0 - 2 /hpf (0-2); URINE WBC 0 - 2 /hpf (0-6)
[2017-11-28] MEDS ORDERED: Sodium Chloride 0.9% 1,000 ML IV SCH (14:00)
[2017-11-28] MEDS ORDERED: POLYETHYLENE GLYCOL 3350 17 GM/Dose PACKET PO SCH (18:00)
[2017-11-28 20:29] VITALS: BMI 31.1
[2017-11-28] MEDS ORDERED: Pneumococcal 23-Valent Vaccine IM ONE (20:29)
[2017-11-28 23:07] VITALS: RESP 20
--- NOTE | 2017-11-28 23:20 | CARD ---
APPROVED REPORT Date of service: 11/28/2017 EKG Measurement Heart [id number] <Conclusion> Marked sinus bradycardia Abnormal ECG
[2017-11-29 06:43] LABS: BASO # 0.03 K/mm3 (0.0-2.0); BASO % 0.3 % (0.0-3.0); EOS # 0.2 (0.0-0.7); EOS % 2.5 % (1.5-5.0); GRAN % 53.1 % (50.0-68.0); HEMOGLOBIN 12.8 g/dL (12.0-16.0); LYMPH # 3.5 (1.2-3.4); LYMPH % 36.9 % (22.0-35.0); MEAN CELL VOLUME 81.8 fl (80.0-105.0); MEAN CORPUSCULAR HEMOGLOBIN 26.7 pg (25.0-35.0); MEAN CORPUSCULAR HGB CONC 32.7 g/dl (31.0-37.0); MEAN PLATELET VOLUME 9.4 fl (7.0-11.0); MONO # 0.7 (0.1-0.6); MONO % 7.2 % (1.0-6.0); RBC 4.79 10^6/uL (3.5-6.1); RED CELL DISTRIBUTION WIDTH 15.1 % (11.5-14.5); WHITE BLOOD COUNT 9.4 10^3/ul (4.5-11.0)
[2017-11-29 07:18] LABS: ALB/GLOB RATIO 1.1 (1.1-1.8); ALBUMIN 3.4 g/dL (3.0-4.8); ALT/SGPT 17 U/L (7-56); AST/SGOT 21 U/L (14-36); BLOOD UREA NITROGEN 8 mg/dL (7-21); CALCIUM 8.9 mg/dL (8.4-10.5); GFR NON-AFRICAN AMERICAN > 60
[2017-11-29 07:25] LABS: BARBITURATES, UR NEGATIVE (NEGATIVE); BENZODIAZEPINES, UR NEGATIVE (NEGATIVE); OPIATES, UR NEGATIVE (NEGATIVE); PHENCYCLIDINE, UR NEGATIVE (NEGATIVE)
[2017-11-29 07:55] VITALS: BP 94/56; PULSE 65; TEMP 97.8; O2SAT 100
--- NOTE | 2017-11-29 09:44 | US ---
Date of service: 11/29/2017 HISTORY: abdominal pain COMPARISON: None. TECHNIQUE: Sonographic evaluation of the right upper quadrant of the abdomen. FINDINGS: LIVER: Measures 14.8 cm in length. Normal echogenicity of the liver parenchyma. No mass. No intrahepatic bile duct dilatation. GALLBLADDER: Unremarkable. No gallstones. COMMON BILE DUCT: Measures 4.4 mm. No stones. No dilatation. PANCREAS: Unremarkable as visualized. No mass. No ductal dilatation. RIGHT KIDNEY: Measures 10.6 cm in length. Normal echogenicity. No calculus, mass, or hydronephrosis. AORTA: No aneurysmal dilatation. IVC: Unremarkable. OTHER FINDINGS: None . IMPRESSION: Unremarkable gallbladder and visualized biliary tree.
[2017-11-29] MEDS ORDERED: Pantoprazole 40 mg EC Tab PO SCH (13:49)
--- NOTE | 2017-11-29 15:15 | CP.PCM.DIS ---
<FlorenciaBharatiMike - Last Filed: 11/29/17 22:24> Provider - Provider Date of Admission: 11/28/17 12:02 Attending physician: Keke Batres MD Primary care physician: Magdalena Hewitt MD Time Spent in preparation of Discharge (in minutes): 45 Diagnosis - Discharge Diagnosis (1) Abdominal pain Status: Resolved Priority: Medium (2) History of anxiety Status: Chronic Priority: Medium (3) History of asthma Status: Chronic Priority: Medium (4) History of bipolar disorder Status: Chronic Priority: Medium (5) History of depression Status: Chronic Priority: Medium (6) History of posttraumatic stress disorder (PTSD) Status: Chronic Priority: Medium Hospital Course - Lab Results Lab Results: Most Recent Lab Values WBC 9.4 10^3/ul (4.5-11.0) D 11/29/17 06:00 RBC 4.79 10^6/uL (3.5-6.1) 11/29/17 06:00 Hgb 12.8 g/dL (12.0-16.0) 11/29/17 06:00 Hct 39.2 % (36.0-48.0) 11/29/17 06:00 MCV 81.8 fl (80.0-105.0) 11/29/17 06:00 MCH 26.7 pg (25.0-35.0) 11/29/17 06:00 MCHC 32.7 g/dl (31.0-37.0) 11/29/17 06:00 RDW 15.1 % (11.5-14.5) H 11/29/17 06:00 Plt Count 286 10^3/uL (120.0-450.0) 11/29/17 06:00 MPV 9.4 fl (7.0-11.0) 11/29/17 06:00 Gran % 53.1 % (50.0-68.0) 11/29/17 06:00 Lymph % (Auto) 36.9 % (22.0-35.0) H 11/29/17 06:00 [place] % (Auto) 7.2 % (1.0-6.0) H 11/29/17 06:00 Eos % (Auto) 2.5 % (1.5-5.0) 11/29/17 06:00 Baso % (Auto) 0.3 % (0.0-3.0) 11/29/17 06:00 Gran # 5.00 (1.4-6.5) 11/29/17 06:00 Lymph # (Auto) 3.5 (1.2-3.4) H 11/29/17 06:00 [place] # (Auto) 0.7 (0.1-0.6) H 11/29/17 06:00 Eos # (Auto) 0.2 (0.0-0.7) 11/29/17 06:00 Baso # (Auto) 0.03 K/mm3 (0.0-2.0) 11/29/17 06:00 PT 11.9 SECONDS (9.4-12.5) 11/28/17 12:40 INR 1.04 11/28/17 12:40 APTT 24.9 Seconds (25.1-36.5) L 11/28/17 12:40 Sodium 143 mmol/L (132-148) 11/29/17 06:00 Potassium 3.9 mmol/L (3.6-5.0) 11/29/17 06:00 Chloride 108 mmol/L (98-107) H 11/29/17 06:00 Carbon Dioxide 26 mmol/L (21-33) 11/29/17 06:00 Anion Gap 13 (10-20) 11/29/17 06:00 BUN 8 mg/dL (7-21) 11/29/17 06:00 Creatinine 0.7 mg/dl (0.7-1.2) 11/29/17 06:00 Est GFR ( Amer) > 60 11/29/17 06:00 Est GFR (Non-Af Amer) > 60 11/29/17 06:00 Random Glucose 76 mg/dL (70-110) 11/29/17 06:00 Calcium 8.9 mg/dL (8.4-10.5) 11/29/17 06:00 Magnesium 1.8 mg/dL (1.7-2.2) 11/28/17 12:40 Total Bilirubin 0.4 mg/dL (0.2-1.3) 11/29/17 06:00 AST 21 U/L (14-36) 11/29/17 06:00 ALT 17 U/L (7-56) 11/29/17 06:00 Alkaline Phosphatase 90 U/L (38-126) 11/29/17 06:00 Total Protein 6.4 g/dL (5.8-8.3) 11/29/17 06:00 Albumin 3.4 g/dL (3.0-4.8) 11/29/17 06:00 Globulin 3.0 gm/dL 11/29/17 06:00 Albumin/Globulin Ratio 1.1 (1.1-1.8) 11/29/17 06:00 Lipase 68 U/L (23-300) 11/28/17 12:40 Urine Color Yellow (YELLOW) 11/28/17 13:20 Urine Appearance Sl cloudy (CLEAR) 11/28/17 13:20 Urine pH 6.5 (4.7-8.0) 11/28/17 13:20 Ur Specific [place] 1.010 (1.005-1.035) 11/28/17 13:20 Urine Protein Negative mg/dL (<30 mg/dL) 11/28/17 13:20 Urine Glucose (UA) Negative mg/dL (NEGATIVE) 11/28/17 13:20 Urine Ketones Negative mg/dL (NEGATIVE) 11/28/17 13:20 Urine Blood Moderate (NEGATIVE) H 11/28/17 13:20 Urine Nitrate Negative (NEGATIVE) 11/28/17 13:20 Urine Bilirubin Negative (NEGATIVE) 11/28/17 13:20 Urine Urobilinogen 0.2 E.U./dL (<1 E.U./dL) 11/28/17 13:20 Ur Leukocyte Esterase Negative Parth/uL (NEGATIVE) 11/28/17 13:20 Urine RBC 0 - 2 /hpf (0-2) 11/28/17 13:20 Urine WBC 0 - 2 /hpf (0-6) 11/28/17 13:20 Ur Epithelial Cells 4 - 5 /hpf (0-5) 11/28/17 13:20 Urine Bacteria Few (NEG) 11/28/17 13:20 Urine Opiates Screen Negative (NEGATIVE) 11/29/17 06:30 Urine Methadone Screen Negative (NEGATIVE) 11/29/17 06:30 Ur Barbiturates Screen Negative (NEGATIVE) 11/29/17 06:30 Ur Phencyclidine Scrn Negative (NEGATIVE) 11/29/17 06:30 Ur Amphetamines Screen Negative (NEGATIVE) 11/29/17 06:30 U Benzodiazepines Scrn Negative (NEGATIVE) 11/29/17 06:30 U Oth Cocaine Metabols Negative (NEGATIVE) 11/29/17 06:30 U Cannabinoids Screen Negative (NEGATIVE) 11/29/17 06:30 - Hospital Course Hospital Course: 27 year old female with a past medical history of PCOS, endometriosis, atrial fibrillation s/p ablation (2014), hypotension, IBS, asthma, bipolar disorder, PTSD, anxiety, and depression presenting with right lower quadrant pain that started 2 days ago. Patient was admitted to the ED on 11/27/2017 and was admitted but left AMA when she was not given narcotics for her pain. Patient then returned to the ED the next day for the same complaint. Patient was admitted and treated with bentyl, colace, miralax, reglan, protonix, and IV fluids. CT abdomen and abdominal ultrasound was unremarkable. EKG showed sinus bradycardia at 49 bpm. Patient had a bowel movement after taking colace and miralax that relieved some of the abdominal pain. Patient was discharged with colace and was instructed to resume home medications as prescribed by her primary medical doctor. She was also instructed to follow up with her primary care doctor, Dr. Maximus Hewitt within 3-5 days of discharge. She was also instructed to follow up with her aerospace physiological technician and psychiatrist within 1-2 weeks of discharge. Patient was instructed to resume activities as tolerated and to continue to eat a healthy diet. Patient is now medically optimized for discharge. Patient further informed to go to the nearest emergency room for worsening or newly concerning symptoms. Discharge Exam - Head Exam Head Exam: ATRAUMATIC, NORMAL INSPECTION - Eye Exam Eye Exam: Normal appearance - ENT Exam ENT Exam: Mucous Membranes Moist - Respiratory Exam Respiratory Exam: Clear to PA & Lateral. absent: Rales, Rhonchi, Wheezes, Respiratory Distress - Cardiovascular Exam Cardiovascular Exam: REGULAR RHYTHM, +S1, +S2. absent: Gallop, Rubs, Systolic Murmur - GI/Abdominal Exam GI & Abdominal Exam: Normal Bowel Sounds, Soft, Tenderness Additional comments: RLQ tender to palpation - Extremities Exam Extremities exam: normal inspection - Neurological Exam Neurological exam: Alert, Oriented x3 - Psychiatric Exam Psychiatric exam: Normal Affect, Normal Mood - Skin Skin Exam: Dry, Intact, Normal Color, Warm Discharge Plan - Discharge Medications Prescriptions: Docusate [Colace] 100 mg PO BID #6 cap - Follow Up Plan Condition: STABLE Disposition: HOME/ ROUTINE Instructions: Acute Abdomen (Belly Pain), Adult (DC), Acute Abdominal Pain (DC) , Acute Abdominal Pain (GEN) Additional Instructions: 1. Please start new medication: Colace 100mg take one tablet in the morning and one tablet in the evening for a total of 3 days - This medication will help treat your constipation. 2. Resume all home medications as prescribed by your primary medical doctor, aerospace physiological technician, psychiatrist. 3. Please follow up with your primary care doctor, Dr. Maximus Hewitt within 3-5 days of discharge. 4. Return to the nearest emergency room for worsening or newly concerning symptoms Referrals: Magdalena Hewitt MD [Primary Care Provider] - Follow up with primary <Keke Batres - Last Filed: 11/30/17 07:48> Provider - Provider Date of Admission: 11/28/17 12:02 Attending physician: Keke Batres MD Primary care physician: Magdalena Hewitt MD Hospital Course - Lab Results Lab Results: Most Recent Lab Values WBC 9.4 10^3/ul (4.5-11.0) D 11/29/17 06:00 RBC 4.79 10^6/uL (3.5-6.1) 11/29/17 06:00 Hgb 12.8 g/dL (12.0-16.0) 11/29/17 06:00 Hct 39.2 % (36.0-48.0) 11/29/17 06:00 MCV 81.8 fl (80.0-105.0) 11/29/17 06:00 MCH 26.7 pg (25.0-35.0) 11/29/17 06:00 MCHC 32.7 g/dl (31.0-37.0) 11/29/17 06:00 RDW 15.1 % (11.5-14.5) H 11/29/17 06:00 Plt Count 286 10^3/uL (120.0-450.0) 11/29/17 06:00 MPV 9.4 fl (7.0-11.0) 11/29/17 06:00 Gran % 53.1 % (50.0-68.0) 11/29/17 06:00 Lymph % (Auto) 36.9 % (22.0-35.0) H 11/29/17 06:00 [place] % (Auto) 7.2 % (1.0-6.0) H 11/29/17 06:00 Eos % (Auto) 2.5 % (1.5-5.0) 11/29/17 06:00 Baso % (Auto) 0.3 % (0.0-3.0) 11/29/17 06:00 Gran # 5.00 (1.4-6.5) 11/29/17 06:00 Lymph # (Auto) 3.5 (1.2-3.4) H 11/29/17 06:00 [place] # (Auto) 0.7 (0.1-0.6) H 11/29/17 06:00 Eos # (Auto) 0.2 (0.0-0.7) 11/29/17 06:00 Baso # (Auto) 0.03 K/mm3 (0.0-2.0) 11/29/17 06:00 PT 11.9 SECONDS (9.4-12.5) 11/28/17 12:40 INR 1.04 11/28/17 12:40 APTT 24.9 Seconds (25.1-36.5) L 11/28/17 12:40 Sodium 143 mmol/L (132-148) 11/29/17 06:00 Potassium 3.9 mmol/L (3.6-5.0) 11/29/17 06:00 Chloride 108 mmol/L (98-107) H 11/29/17 06:00 Carbon Dioxide 26 mmol/L (21-33) 11/29/17 06:00 Anion Gap 13 (10-20) 11/29/17 06:00 BUN 8 mg/dL (7-21) 11/29/17 06:00 Creatinine 0.7 mg/dl (0.7-1.2) 11/29/17 06:00 Est GFR ( Amer) > 60 11/29/17 06:00 Est GFR (Non-Af Amer) > 60 11/29/17 06:00 Random Glucose 76 mg/dL (70-110) 11/29/17 06:00 Calcium 8.9 mg/dL (8.4-10.5) 11/29/17 06:00 Magnesium 1.8 mg/dL (1.7-2.2) 11/28/17 12:40 Total Bilirubin 0.4 mg/dL (0.2-1.3) 11/29/17 06:00 AST 21 U/L (14-36) 11/29/17 06:00 ALT 17 U/L (7-56) 11/29/17 06:00 Alkaline Phosphatase 90 U/L (38-126) 11/29/17 06:00 Total Protein 6.4 g/dL (5.8-8.3) 11/29/17 06:00 Albumin 3.4 g/dL (3.0-4.8) 11/29/17 06:00 Globulin 3.0 gm/dL 11/29/17 06:00 Albumin/Globulin Ratio 1.1 (1.1-1.8) 11/29/17 06:00 Lipase 68 U/L (23-300) 11/28/17 12:40 Urine Color Yellow (YELLOW) 11/28/17 13:20 Urine Appearance Sl cloudy (CLEAR) 11/28/17 13:20 Urine pH 6.5 (4.7-8.0) 11/28/17 13:20 Ur Specific [place] 1.010 (1.005-1.035) 11/28/17 13:20 Urine Protein Negative mg/dL (<30 mg/dL) 11/28/17 13:20 Urine Glucose (UA) Negative mg/dL (NEGATIVE) 11/28/17 13:20 Urine Ketones Negative mg/dL (NEGATIVE) 11/28/17 13:20 Urine Blood Moderate (NEGATIVE) H 11/28/17 13:20 Urine Nitrate Negative (NEGATIVE) 11/28/17 13:20 Urine Bilirubin Negative (NEGATIVE) 11/28/17 13:20 Urine Urobilinogen 0.2 E.U./dL (<1 E.U./dL) 11/28/17 13:20 Ur Leukocyte Esterase Negative Parth/uL (NEGATIVE) 11/28/17 13:20 Urine RBC 0 - 2 /hpf (0-2) 11/28/17 13:20 Urine WBC 0 - 2 /hpf (0-6) 11/28/17 13:20 Ur Epithelial Cells 4 - 5 /hpf (0-5) 11/28/17 13:20 Urine Bacteria Few (NEG) 11/28/17 13:20 Urine Opiates Screen Negative (NEGATIVE) 11/29/17 06:30 Urine Methadone Screen Negative (NEGATIVE) 11/29/17 06:30 Ur Barbiturates Screen Negative (NEGATIVE) 11/29/17 06:30 Ur Phencyclidine Scrn Negative (NEGATIVE) 11/29/17 06:30 Ur Amphetamines Screen Negative (NEGATIVE) 11/29/17 06:30 U Benzodiazepines Scrn Negative (NEGATIVE) 11/29/17 06:30 U Oth Cocaine Metabols Negative (NEGATIVE) 11/29/17 06:30 U Cannabinoids Screen Negative (NEGATIVE) 11/29/17 06:30 Attending/Attestation - Attestation I have personally seen and examined this patient.: Yes I have fully participated in the care of the patient.: Yes I have reviewed all pertinent clinical information, including history, physical exam and plan: Yes Notes (Text): 11/29/17 27 year old female who presented with right sided abdominal pain. Workup including LFTs, CT abd/pelvis and ultrasound of abdomen were negative. She was started on colace and miralax for constipation. She was seen by GI. Her symptoms improved and her diet was advanced. Patient is discharged home to follow up with her pmd. Keke Batres MD Hospitalist.
--- NOTE | 2017-11-29 18:13 | CON ---
Copied To: Barry Dee MD Attending MD: Barry Dee MD DATE: 11/29/2017 CONSULTATION IN GASTROENTEROLOGY REQUESTING PHYSICIAN: Dr. Batres. REASON FOR CONSULTATION: I have been asked to see this 27-year-old female with a history of chronic recurrent abdominal pain, atrial fibrillation, bipolar disorder, depression, anxiety, PTSD, atrial fibrillation status post ablation, endometriosis and polycystic ovarian syndrome who comes to the hospital with 2 days of right mid abdominal pain. The pain became worse and came to the emergency room. The patient also had several episodes of nausea and vomiting earlier in the week. This morning, the patient states that she feels better with less abdominal pain. PAST MEDICAL HISTORY: Notable for atrial fibrillation status post cardiac ablation, bipolar disorder, PTSD, anxiety, depression, irritable bowel syndrome, endometriosis and PCOS. PAST SURGICAL HISTORY: Notable for cardiac ablation. SOCIAL HISTORY: She smokes less than a half pack of cigarettes per day. She smokes marijuana on occasion. She consumes alcohol socially. FAMILY HISTORY: Noncontributory. HOME MEDICATIONS: Include trazodone, Risperdal, Remeron, and albuterol. PHYSICAL EXAMINATION: GENERAL: Young female lying in bed in no acute distress. VITAL SIGNS: Reveal temperature of 97.8, blood pressure 194/56, heart rate 65. HEENT: Reveal sclerae to be white. Oral mucosa moist. NECK: Supple. CHEST: Lungs are clear. HEART: Reveals regular rate and rhythm. ABDOMEN: Soft, nontender. No mass. EXTREMITIES: Show no edema. LABORATORY DATA: Reveal white blood cell count 9.4, hemoglobin 12.8. Chemistries reveal normal electrolytes. Toxicology screen is negative. DIAGNOSTIC STUDIES: CT scan of the abdomen and pelvis is negative for any acute findings. IMPRESSION: A 27-year-old female with chronic recurrent abdominal pain, currently localized to the right mid abdomen. This was associated with several episodes of nausea and vomiting. Her CT scan of the abdomen and pelvis is negative. Her blood work is normal. Etiology of the abdominal pain is unclear. RECOMMENDATIONS: 1. We will obtain an abdominal ultrasound. 2. Clear liquid diet. If tolerated, the patient could be advanced to a soft, low residue diet for lunch. If this is tolerated, she can be discharged home with outpatient followup. Barry Dee MD [facility] # [id number]
== END 2017-11-29 14:34 | disposition home or self-care (01) ==
LOC: ED 11:31 → ERH 12:02 → 5RSO 14:53
PROVIDERS: ADMIT Internal Medicine; ATTEND Internal Medicine
DX: R10.9 Unspecified abdominal pain (principal); F41.9 Anxiety disorder, unspecified; J45.909 Unspecified asthma, uncomplicated; F31.9 Bipolar disorder, unspecified; F43.10 Post-traumatic stress disorder, unspecified; E28.2 Polycystic ovarian syndrome; F12.90 Cannabis use, unspecified, uncomplicated; F17.210 Nicotine dependence, cigarettes, uncomplicated; F42.9 Obsessive-compulsive disorder, unspecified; G47.00 Insomnia, unspecified; G89.29 Other chronic pain; I48.91 Unspecified atrial fibrillation; K58.9 Irritable bowel syndrome, unspecified; M54.30 Sciatica, unspecified side; Z82.49 Family history of ischemic heart disease and other diseases of the circulatory system; Z82.5 Family history of asthma and other chronic lower respiratory diseases; Z83.3 Family history of diabetes mellitus; Z80.8 Family history of malignant neoplasm of other organs or systems; Z98.51 Tubal ligation status; Z98.891 History of uterine scar from previous surgery
CPT/HCPCS: 36415; 76705; 80053; 80324; 80345; 80346; 80349; 80353; 80358; 80361; 81001; 83690; 83735; 83992; 85025; 85610; 85730; 93005; 96374; 96375; 96376; 99284; G0378; J2765; Q9967

== ENCOUNTER 2018-05-03 20:26 | Emergency (ER) | payer SELFPAY ==
[2018-05-03 20:47] VITALS: BP 98/60; PULSE 80; RESP 18; TEMP 98; O2SAT 98; BMI 29.7
[2018-05-03] MEDS ORDERED: Morphine 4 mg/ml ISec IM STA (21:47)
[2018-05-03] MEDS ORDERED: Lidocaine 5% Patch TD STA (21:47)
--- NOTE | 2018-05-03 21:52 | ED PDOC ---
Arrival/HPI - General Chief Complaint: Back Pain Time Seen by Provider: 05/03/18 20:41 Historian: Patient - History of Present Illness Narrative History of Present Illness (Text): 05/03/18 21:48 27 yo F w/ PMH of atrial fibrillation with ablation, bipolar, depression, anxiety, chronic back pain, bulging disc to L spine, reports pain in the lower back since last night. Reports that she is allergic no nsaids and tylenol and therefore is here in the ER because she can not take otc pain medication for her symptoms. Otherwise: (-) trauma, (-) injury, (-) heavy lifting, (-) urinary symptoms, (-) abdominal pain, (-) paresthesias, (-) weakness, (-) acute bowel or bladder dysfunction, (-) fever. Has history of prior back problem. PMD [place] Past Medical History - Infectious Disease Hx of Infectious Diseases: None - Tetanus Immunization Tetanus Immunization: Unknown - Cardiac Hx Cardiac Disorders: Yes Hx Atrial Fibrillation: Yes (ablation) Other/Comment: Afib. loop recorder 2014 - Pulmonary Hx Respiratory Disorders: Yes Hx Asthma: Yes - Neurological Hx Neurological Disorder: Yes Hx Syncope: Yes - HEENT Hx HEENT Disorder: No - Renal Hx Renal Disorder: No - Endocrine/Metabolic Hx Endocrine Disorders: No - Hematological/Oncological Hx Blood Disorders: No - Integumentary Hx Dermatological Disorder: No - Musculoskeletal/Rheumatological Hx Musculoskeletal Disorders: Yes Hx Back Pain: Yes Other/Comment: Sciatica - Gastrointestinal Hx Gastrointestinal Disorders: Yes Hx Gastritis: Yes Hx Irritable Bowel: Yes Hx Vomiting: Yes - Genitourinary/Gynecological Hx Genitourinary Disorders: Yes Other/Comment: Ovarian Cyst - Psychiatric Hx Psychophysiologic Disorder: Yes Hx Anxiety: Yes Hx Bipolar Disorder: Yes Hx Depression: Yes Hx Post Traumatic Stress Disorder: Yes Hx Substance Use: No Other/Comment: Insomnia. PTSD. OCD - Surgical History Hx Cardiac Catheterization: Yes Hx Section: Yes (x3) Hx Tubal Ligation: Yes Other/Comment: etopic pregancy 2009. loop recorder placement 2014. loop recorder removal 2016 - Anesthesia Hx Anesthesia: Yes Hx Anesthesia Reactions: No Hx Malignant Hyperthermia: No - Suicidal Assessment Feels Threatened In Home Enviroment: No Family/Social History Family/Social History: No Known Family HX Smoking Status: Heavy Smoker > 10 Cigarettes Daily Hx Alcohol Use: Yes (occasional) Hx Substance Use: No Hx Substance Use Treatment: No Allergies/Home Meds Allergies/Adverse Reactions: Allergies acetaminophen [From Tylenol] Allergy (Verified 05/03/18 20:46) URTICARIA aspirin Allergy (Verified 05/03/18 20:46) ANAPHYLAXIS banana Allergy (Verified 05/03/18 20:46) ANAPHYLAXIS ibuprofen [From Motrin] Allergy (Verified 05/03/18 20:46) URTICARIA latex Allergy (Verified 05/03/18 20:46) ANAPHYLAXIS ondansetron [From Zofran] Allergy (Verified 05/03/18 20:46) URTICARIA surgical tape Allergy (Uncoded 05/03/18 20:46) URTICARIA Home Medications: Home Meds Medication Instructions Recorded Confirmed Albuterol 0.083% [Albuterol 0.083% 1 vial IH QID PRN 10/15/17 11/28/17 Inhal Josie (2.5 mg/3 ml) UD] Mirtazapine [Remeron] 1 tab PO HS 10/15/17 11/28/17 Risperidone [Risperdal] 1 tab PO DAILY 10/15/17 11/28/17 traZODone [Desyrel] 1 tab PO HS 10/15/17 11/28/17 Review of Systems - Review of Systems Constitutional: absent: Fatigue, Fevers Respiratory: absent: SOB, Cough Cardiovascular: absent: Chest Pain, Palpitations Gastrointestinal: absent: Abdominal Pain, Nausea, Vomiting Genitourinary Female: absent: Dysuria, Frequency, Hematuria Musculoskeletal: Back Pain. absent: Arthralgias, Neck Pain Skin: absent: Rash, Pruritis, Skin Lesions Neurological: absent: Headache, Dizziness Physical Exam Vital Signs Temp Pulse Resp BP Pulse Ox 05/03/18 20:43 98.0 F 80 18 98/60 L 98 Temperature: Afebrile Blood Pressure: Normal Pulse: Regular Respiratory Rate: Normal Appearance: Positive for: Well-Appearing, Non-Toxic, Comfortable Pain Distress: Mild Mental Status: Positive for: Alert and Oriented X 3 - Systems Exam Head: Present: Atraumatic, Normocephalic Pupils: Present: PERRL Extroacular Muscles: Present: EOMI Conjunctiva: Present: Normal Mouth: Present: Moist Mucous Membranes Neck: Present: Normal Range of Motion Respiratory/Chest: Present: Clear to Auscultation, Good Air Exchange. No: Respiratory Distress, Accessory Muscle Use Cardiovascular: Present: Regular Rate and Rhythm, Normal S1, S2. No: Murmurs Abdomen: No: Tenderness, Distention, Peritoneal Signs Back: Present: Normal Inspection, Midline Tenderness, Paraspinal Tenderness (to the lower T and L spine). No: Pain with Leg Raise Upper Extremity: Present: Normal Inspection. No: Cyanosis, Edema Lower Extremity: Present: Normal Inspection. No: Edema Neurological: Present: GCS=15, CN II-XII Intact, Speech Normal, Motor Func Grossly Intact, Normal Sensory Function Skin: Present: Warm, Dry, Normal Color. No: Rashes Psychiatric: Present: Alert, Oriented x 3, Normal Insight, Normal Concentration Medical Decision Making ED Course and Treatment: 05/03/18 21:52 Patient medicated with morphine IM, flexeril PO, lidoderm patch, and reglan PO. On reevaluation, patient reports improvement of pain. On exam, patient remains awake alert and oriented 3 in no acute distress. Repeat neuro exam shows no focal findings. Patient able to stand and ambulate in the ER. Advised to follow up with primary care physician in 1-2 days without fail. Advised to take medication as prescribed. Return to the emergency room at any time for any new or worsening symptoms. Patient states she fully agrees with and understands discharge instructions. States that she agrees with the plan and disposition. Verbalized and repeated discharge instructions and plan. I have given the patient opportunity to ask any additional questions. - Medication Orders Current Medication Orders: Cyclobenzaprine HCl (Flexeril) 10 mg PO STAT STA Stop: 05/03/18 21:48 Lidocaine (Lidoderm) 1 ea TD STAT STA Stop: 05/03/18 21:48 Metoclopramide HCl (Reglan) 10 mg PO STAT STA Stop: 05/03/18 21:48 Morphine Sulfate (Morphine) 6 mg IM STAT STA Stop: 05/03/18 21:48 - PA / EVALUATION SPECIALIST / Resident Statement MD/DO has reviewed & agrees with the documentation as recorded. Disposition/Present on Arrival - Present on Arrival Any Indicators Present on Arrival: No History of DVT/PE: No History of Uncontrolled Diabetes: No Urinary Catheter: No History of Decub. Ulcer: No History Surgical Site Infection Following: None - Disposition Have Diagnosis and Disposition been Completed?: Yes Diagnosis: Back pain Disposition: HOME/ ROUTINE Disposition Time: 23:00 Patient Plan: Discharge Condition: STABLE Discharge Instructions (ExitCare): Low Back Pain (DC) Additional Instructions: Thank you for letting us take care of you today. You were treated for low back pain. The emergency medical care you received today was directed at your acute symptoms. If you were prescribed any medication, please fill it and take as directed. It may take several days for your symptoms to resolve. Return to the Emergency Department if your symptoms worsen, do not improve, or if you have any other problems. Please contact your doctor in 2 days for re-evaluation and follow up. Bring any paperwork you were given at discharge with you along with any medications you are taking to your follow up visit. Our treatment cannot replace ongoing medical care by a primary care provider (PCP) outside of the emergency department. Thank you for allowing the [facility] team to be part of your care today. Prescriptions: Cyclobenzaprine [Cyclobenzaprine HCl] 10 mg PO TID PRN #15 tab PRN Reason: Muscle Spasm Forms: [employer] ([place]ian), WORK NOTE
== END 2018-05-03 23:30 | disposition home or self-care (01) ==
LOC: ED 20:26
DX: M54.5 Low back pain (principal); F17.210 Nicotine dependence, cigarettes, uncomplicated; I48.91 Unspecified atrial fibrillation; F31.9 Bipolar disorder, unspecified
CPT/HCPCS: 81025; 96372; 99282; J2270

== ENCOUNTER 2018-06-02 17:56 | Emergency (ER) | payer SELFPAY, MEDICAID, OTHER | END 2018-06-03 00:25 | disposition home or self-care (01) | LOC: ED 06-03 00:25 ==

== ENCOUNTER 2018-06-21 19:30 | Emergency (ER) | payer OTHER ==
[2018-06-21 19:48] VITALS: BMI 30.9
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
[2018-06-21] MEDS ORDERED: Morphine 2 mg/ml ISec IVP STA ×2 (20:03→23:05)
[2018-06-21 20:55] VITALS: BP 103/64; PULSE 85; RESP 18; TEMP 98.2; O2SAT 100
[2018-06-21] MEDS ORDERED: DiphenhydrAMINE 12.5 mg/5 ml LIQ UD (5 ml) PO STA (21:27)
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
== END 2018-06-22 00:45 | disposition home or self-care (01) ==
LOC: ED 19:30
DX: M79.605 Pain in left leg (principal); V03.90XA Pedestrian on foot injured in collision with car, pick-up truck or van, unspecified whether traffic or nontraffic accident, initial encounter; Y92.410 Unspecified street and highway as the place of occurrence of the external cause
CPT/HCPCS: 73552; 73590; 73630; 96374; 96376; 99281; J2270